=== PATIENT | female | born 1950 | race Caucasian/White ===

== ENCOUNTER 2017-12-30 06:55 | Day surgery (SDC) | payer MEDICARE ==
[2017-12-28 14:03] VITALS: BMI 38.9
[~2017-12-30 06:55] MED LIST: LACTATED RINGERS 1,000 ML IV SCH
[2017-12-30] MEDS ORDERED: LACTATED RINGERS 1,000 ML IV ONE (07:10)
[2017-12-30 07:22] VITALS: TEMP 98.3
[2017-12-30] MEDS ORDERED: PROPOFOL 10 MG/ML 20 ML VIAL IV ONE (07:43)
[2017-12-30 08:42] VITALS: BP 123/64; PULSE 72; RESP 18
--- NOTE | 2017-12-30 12:21 | P.GSHP ---
History of Present Illness H&P Date: 12/30/17 Chief Complaint: Screening colonoscopy This is a 67-year-old female who presents today for screening colonoscopy. Patient has no significant GI complaints. Past Medical History Past Medical History: COPD, GERD/Reflux, Hyperlipidemia, Hypertension, Osteoarthritis (OA), Sleep Apnea/CPAP/BIPAP Additional Past Medical History / Comment(s): obesity (morbid), degenerative arthritis and has bilateral knee replacments, , Adrenal mass -left measuring 8.4 x 6.2 cm in size. BECAME SEPTIC W/ DEHYDRATION, BODY ULCERS R/T DEPRESSION 06/2017-07/2017; NOW ON O2 @ HS & PRN. History of Any Multi-Drug Resistant Organisms: None Reported Past Surgical History: Breast Surgery, Section, Joint Replacement Additional Past Surgical History / Comment(s): LT BREAST CYST. Past Anesthesia/Blood Transfusion Reactions: No Reported Reaction Smoking Status: Former smoker - Past Family History Sister(s) Family Medical History: Liver Disease Additional Family Medical History / Comment(s): sister had genetic liver disorder from which she . pt was tested and found negative. Medications and Allergies Home Medications Medication Instructions Recorded Confirmed Type Sertraline [Zoloft] 100 mg PO DAILY 06/12/17 12/30/17 History Aspirin 81 mg PO DAILY chew 06/13/17 12/28/17 Rx Ascorbic Acid [Vitamin C] 500 mg PO DAILY 12/28/17 12/30/17 History Cholecalciferol [Vitamin D3] 5,000 unit PO DAILY 12/28/17 12/30/17 History Fish Oil (Unknown Dose) 1 tab PO DAILY 12/28/17 History Lisinopril [Zestril] 5 mg PO DAILY 12/28/17 12/30/17 History Multivitamins, Thera [Multivitamin 1 tab PO DAILY 12/28/17 12/28/17 History (formulary)] Nexium (Unknown Dose) 1 tab PO DAILY PRN 12/28/17 History Allergies Allergy/AdvReac Type Severity Reaction Status Date / Time morphine Allergy Nausea & Verified 12/30/17 07:18 Vomiting Surgical - Exam Vital Signs Temp Pulse Resp BP Pulse Ox 98.3 F 98 16 128/72 86 L 12/30/17 07:20 12/30/17 07:20 12/30/17 07:20 12/30/17 07:20 12/30/17 07:20 - General well developed, no distress - Eyes PERRL - ENT normal pinna - Neck no masses - Respiratory normal expansion - Cardiovascular Rhythm: regular - Abdomen Abdomen: soft, non tender Assessment and Plan Assessment: We'll perform screening colonoscopy.
--- NOTE | 2017-12-30 12:22 | P.OP ---
Date of Procedure: 12/30/17 Preoperative Diagnosis: Screening colonoscopy Postoperative Diagnosis: Diverticulosis Procedure(s) Performed: Colonoscopy Anesthesia: MAC Surgeon: Jesse Bro Pathology: none sent Condition: stable Disposition: PACU Description of Procedure: The patient's placed on the endoscopy table lateral position. She received IV sedation. Digital rectal exam is performed which revealed no ebonized. The flexible colonoscope was then placed patient anus passed throughout the entire colon. The ileocecal valve sutures. The cecum, ascending and transverse colon appeared normal. The same; was mild diverticular changes. Scope summer back the rectum and this appeared normal. Scope was withdrawn from patient.
== END 2017-12-30 08:55 | disposition home or self-care (01) ==
LOC: ORWHC2ENDO 06:55
PROVIDERS: ATTEND Surgery
DX: Z12.11 Encounter for screening for malignant neoplasm of colon (principal); K57.30 Diverticulosis of large intestine without perforation or abscess without bleeding; I10 Essential (primary) hypertension; E78.5 Hyperlipidemia, unspecified; J44.9 Chronic obstructive pulmonary disease, unspecified; G47.33 Obstructive sleep apnea (adult) (pediatric); F39 Unspecified mood [affective] disorder; M19.90 Unspecified osteoarthritis, unspecified site; K21.9 Gastro-esophageal reflux disease without esophagitis; E66.01 Morbid (severe) obesity due to excess calories; Z68.38 Body mass index [BMI] 38.0-38.9, adult; Z88.5 Allergy status to narcotic agent; Z79.82 Long term (current) use of aspirin; Z79.899 Other long term (current) drug therapy; Z87.891 Personal history of nicotine dependence; Z99.89 Dependence on other enabling machines and devices; Z96.653 Presence of artificial knee joint, bilateral
CPT/HCPCS: J2704; G0121

== ENCOUNTER 2021-01-08 11:14 | Emergency (ER) | payer MEDICARE ==
[2021-01-08] MEDS ORDERED: HYDROmorphone 0.5 MG/0.5 ML SYRINGE IM STA (11:39)
--- NOTE | 2021-01-08 12:43 | XR ---
EXAMINATION TYPE: XR wrist complete LT DATE OF EXAM: 01/08/2021 CLINICAL HISTORY: 70-year-old female with injury TECHNIQUE: Frontal, lateral and oblique images of the left wrist are obtained. COMPARISON: None FINDINGS: Severe bony demineralization. There is a comminuted fracture of the distal radius extending into the radiocarpal joint space. There is a fracture of the ulnar styloid process. Narrowing of the radiocarpal joint space. IMPRESSION: 1. Comminuted fracture of the distal radius extending into the radiocarpal joint. Ulnar styloid fract ure. Overlying soft tissue swelling. Severe bony demineralization.
--- NOTE | 2021-01-08 12:50 | ED ---
Upper Extremity HPI - General Chief Complaint: Extremity Injury, Upper Stated Complaint: Wrist injury Time Seen by Provider: 01/08/21 11:29 Source: patient, EMS Mode of arrival: EMS Limitations: no limitations - History of Present Illness Initial Comments: 70-year-old female presents emergency Department with a chief complaint of left wrist pain. Patient reports she was walking out of the eye doctor's office when looked upward as she was using her walker, she felt like she was going to the ground. She reports questionable syncopal episodes. However, she denies loss of consciousness. Patient states she fell on the left side of her body and, mos t of her weight with her left arm. She reports a FOOSH. States pain is worse with with movement. She was brought to the ED via EMS. She denies any paresthesias. Denies any seizure-like activity. No history of syncopal episodes. She denies any chest pain or shortness of breath, Headache, blurry vision, one sided weakness or paresthesias. - Related Data Home Medications Medication Instructions Recorded Confirmed Sertraline [Zoloft] 100 mg PO DAILY 06/12/17 12/30/17 Ascorbic Acid [Vitamin C] 500 mg PO DAILY 12/28/17 12/30/17 Cholecalciferol [Vitamin D3] 5,000 unit PO DAILY 12/28/17 12/30/17 Fish Oil (Unknown Dose) 1 tab PO DAILY 12/28/17 Multivitamins, Thera [Multivitamin 1 tab PO DAILY 12/28/17 12/28/17 (formulary)] Nexium (Unknown Dose) 1 tab PO DAILY PRN 12/28/17 lisinopriL [Zestril] 5 mg PO DAILY 12/28/17 12/30/17 Previous Rx's Medication Instructions Recorded Aspirin 81 mg PO DAILY chew 06/13/17 Allergies Allergy/AdvReac Type Severity Reaction Status Date / Time morphine Allergy Nausea & Verified 01/08/21 11:28 Vomiting Review of Systems ROS Statement: Those systems with pertinent positive or pertinent negative responses have been documented in the HPI. ROS Other: All systems not noted in ROS Statement are negative. Past Medical History Past Medical History: COPD, GERD/Reflux, Hyperlipidemia, Hypertension, Osteoarthritis (OA), Sleep Apnea/CPAP/BIPAP Additional Past Medical History / Comment(s): obesity (morbid), degenerative arthritis and has bilateral knee replacments, , Adrenal mass -left measuring 8.4 x 6.2 cm in size. BECAME SEPTIC W/ DEHYDRATION, BODY ULCERS R/T DEPRESSION 06/2017-07/2017; NOW ON O2 @ HS & PRN. History of Any Multi-Drug Resistant Organisms: None Reported Past Surgical History: Breast Surgery, Section, Joint Replacement Additional Past Surgical History / Comment(s): LT BREAST CYST. Past Anesthesia/Blood Transfusion Reactions: No Reported Reaction Past Psychological History: Depression Smoking Status: Never smoker Past Alcohol Use History: None Reported Past Drug Use History: None Reported - Past Family History Sister(s) Family Medical History: Liver Disease Additional Family Medical History / Comment(s): sister had genetic liver disorder from which she . pt was tested and found negative. General Exam Limitations: no limitations General appearance: alert, in no apparent distress, obese Head exam: Present: atraumatic, normocephalic, normal inspection Eye exam: Present: normal appearance, PERRL, EOMI Pupils: Present: normal accommodation ENT exam: Present: normal exam, normal oropharynx, mucous membranes moist Neck exam: Present: normal inspection, full ROM. Absent: tenderness, lymphadenopathy Respiratory exam: Present: normal lung sounds bilaterally. Absent: respiratory distress Cardiovascular Exam: Present: regular rate, normal rhythm, normal heart sounds. Absent: systolic murmur Extremities exam: Present: tenderness (Tenderness at the injured site), normal capillary refill, other (Palpable ulnar and radial pulses. Sensation intact in the left upper extremity). Absent: normal inspection (Obvious bony deformity on the left distal forearm), full ROM (Limited range of motion due to injury), pedal edema, joint swelling, calf tenderness Back exam: Present: normal inspection, full ROM. Absent: tenderness Neurological exam: Present: alert, oriented X3, CN II-XII intact, normal gait Psychiatric exam: Present: normal affect, normal mood Skin exam: Present: warm, dry, intact, normal color Course Vital Signs 01/08/21 11:23 Temperature 98.7 F Pulse Rate 86 Respiratory 18 Rate Blood Pressure 140/75 O2 Sat by Pulse 99 Oximetry Procedures - Orthopedic Splinting/Casting Injury #1 Side: left Upper Extremity Injury Location: wrist Upper Extremity Immobilizer: sugar tong splint, Oscar wrap, synthetic pre-padded splint Medical Decision Making - Medical Decision Making 70-year-old female presents emergency Department with a chief complaint of left wrist pain. On physical examination, clear bony deformity noted on the left wrist. She is otherwise neurovascularly intact. X-ray reveals a comminuted distal radial fracture that is extending into the radial ulnar joint. She also ulnar styloid chip fracture. I spoke to JELENA castañeda who states the patient can be splinted and they can follow-up in outpatient setting with Dr. Torres. Give the patient Dilaudid on arrival which Alleviated the symptoms. There was a concern for possible syncopal episode. Laboratory work is unremarkable. Orthostatics are within normal limits. Patient has had stable vitals throughout ED visit. Chest x-ray shows no acute findings. I offered CT of the brain and C-spine, she declined. Advised to follow with Dr. Torres. Strict return paramet ers were thoroughly discussed patient is understanding and agreeable. Case discussed with Dr. Jay. - Lab Data Result diagrams: 01/08/21 12:54 01/08/21 12:54 Lab Results 01/08/21 01/08/21 01/08/21 Range/Units 12:54 12:54 12:54 WBC 8.6 (3.8-10.6) k/uL RBC 5.01 (3.80-5.40) m/uL Hgb 14.8 (11.4-16.0) gm/dL Hct 44.4 (34.0-46.0) % MCV 88.7 (80.0-100.0) fL MCH 29.6 (25.0-35.0) pg MCHC 33.3 (31.0-37.0) g/dL RDW 13.8 (11.5-15.5) % Plt Count 174 (150-450) k/uL MPV 8.7 Neutrophils % 83 % Lymphocytes % 11 % Monocytes % 3 % Eosinophils % 2 % Basophils % 0 % Neutrophils # 7.1 (1.3-7.7) k/uL Lymphocytes # 1.0 (1.0-4.8) k/uL Monocytes # 0.3 (0-1.0) k/uL Eosinophils # 0.2 (0-0.7) k/uL Basophils # 0.0 (0-0.2) k/uL PT 10.3 (9.0-12.0) sec INR 1.0 (<1.2) APTT 21.0 L (22.0-30.0) sec Sodium 138 (137-145) mmol/L Potassium 4.7 (3.5-5.1) mmol/L Chloride 105 (98-107) mmol/L Carbon Dioxide 29 (22-30) mmol/L Anion Gap 4 mmol/L BUN 12 (7-17) mg/dL Creatinine 0.46 L (0.52-1.04) mg/dL Est GFR (CKD-EPI)AfAm >90 (>60 ml/min/1.73 sqM) Est GFR (CKD-EPI)NonAf >90 (>60 ml/min/1.73 sqM) Glucose 96 (74-99) mg/dL Calcium 9.8 (8.4-10.2) mg/dL Total Bilirubin 0.5 (0.2-1.3) mg/dL AST 28 (14-36) U/L ALT 8 (4-34) U/L Alkaline Phosphatase 104 (38-126) U/L Troponin I (0.000-0.034) ng/mL Total Protein 6.9 (6.3-8.2) g/dL Albumin 3.6 (3.5-5.0) g/dL 01/08/21 Range/Units 12:54 WBC (3.8-10.6) k/uL RBC (3.80-5.40) m/uL Hgb (11.4-16.0) gm/dL Hct (34.0-46.0) % MCV (80.0-100.0) fL MCH (25.0-35.0) pg MCHC (31.0-37.0) g/dL RDW (11.5-15.5) % Plt Count (150-450) k/uL MPV Neutrophils % % Lymphocytes % % Monocytes % % Eosinophils % % Basophils % % Neutrophils # (1.3-7.7) k/uL Lymphocytes # (1.0-4.8) k/uL Monocytes # (0-1.0) k/uL Eosinophils # (0-0.7) k/uL Basophils # (0-0.2) k/uL PT (9.0-12.0) sec INR (<1.2) APTT (22.0-30.0) sec Sodium (137-145) mmol/L Potassium (3.5-5.1) mmol/L Chloride (98-107) mmol/L Carbon Dioxide (22-30) mmol/L Anion Gap mmol/L BUN (7-17) mg/dL Creatinine (0.52-1.04) mg/dL Est GFR (CKD-EPI)AfAm (>60 ml/min/1.73 sqM) Est GFR (CKD-EPI)NonAf (>60 ml/min/1.73 sqM) Glucose (74-99) mg/dL Calcium (8.4-10.2) mg/dL Total Bilirubin (0.2-1.3) mg/dL AST (14-36) U/L ALT (4-34) U/L Alkaline Phosphatase (38-126) U/L Troponin I <0.012 (0.000-0.034) ng/mL Total Protein (6.3-8.2) g/dL Albumin (3.5-5.0) g/dL Disposition Clinical Impression: Left wrist fracture, Closed fracture of left distal radius, Fracture of ulnar styloid Disposition: HOME SELF-CARE Condition: Stable Instructions (If sedation given, give patient instructions): Wrist Fracture in Adults (ED) Additional Instructions: Follow-up with Dr. Torres. Return to emergency department if symptoms worsen. Is patient prescribed a controlled substance at d/c from ED?: No Referrals: Skye Guardado DO [Primary Care Provider] - 1-2 days Jerrell Browning MD [STAFF PHYSICIAN] - 1-2 days Time of Disposition: 14:35
[2021-01-08 13:19] LABS: Basophils % (A) 0 %; Eosinophils # (A) 0.2 k/uL (0-0.7); Eosinophils % (A) 2 %; HCT 44.4 % (34.0-46.0); HGB 14.8 gm/dL (11.4-16.0); Lymphocytes % (A) 11 %; MCH 29.6 pg (25.0-35.0); MCHC 33.3 g/dL (31.0-37.0); MCV 88.7 fL (80.0-100.0); Mean Platelet Volume 8.7; Monocytes # (A) 0.3 k/uL (0-1.0); Monocytes % (A) 3 %; Neutrophils # (A) 7.1 k/uL (1.3-7.7); Neutrophils % (A) 83 %; Platelet Count 174 k/uL (150-450); RBC 5.01 m/uL (3.80-5.40); RDW 13.8 % (11.5-15.5); WBC 8.6 k/uL (3.8-10.6)
[2021-01-08 13:37] LABS: ALT 8 U/L (4-34); AST 28 U/L (14-36); African American GFR (CKD) >90 (>60 ml/min/1.73 sqM); Albumin 3.6 g/dL (3.5-5.0); Alkaline Phosphatase 104 U/L (38-126); Anion Gap 4 mmol/L; Blood Urea Nitrogen 12 mg/dL (7-17); Calcium 9.8 mg/dL (8.4-10.2); Carbon Dioxide 29 mmol/L (22-30); Chloride 105 mmol/L (98-107); Glucose 96 mg/dL (74-99); Non-African American GFR(CKD) >90 (>60 ml/min/1.73 sqM); Potassium 4.7 mmol/L (3.5-5.1); Sodium 138 mmol/L (137-145); Total Bilirubin 0.5 mg/dL (0.2-1.3); Total Protein 6.9 g/dL (6.3-8.2)
[2021-01-08 13:40] LABS: Prothrombin Time 10.3 sec (9.0-12.0)
[2021-01-08] MEDS ORDERED: LIDOCAINE 1% INJ 10MG/ML (20 ML MDV) SQ ONE (14:04)
--- NOTE | 2021-01-08 14:21 | XR ---
EXAMINATION TYPE: XR chest 2V DATE OF EXAM: 01/08/2021 COMPARISON: 06/13/2017 HISTORY: Syncopal event, fall today TECHNIQUE: Frontal and lateral views of the chest are obtained. FINDINGS: Gross cardiomegaly. Pulmonary interstitial prominence is diffuse most suggestive of edema. Small left pleural effusion is not excluded. No right pleural effusion. No pneumothorax. Degenerativ e changes and osteopenia. IMPRESSION: 1. Gross cardiomegaly and diffuse pulmonary interstitial prominence most suggestive of edema. Probabl e small left pleural effusion. The findings are suggestive of developing congestive heart failure. Co ntinued follow-up to resolution is recommended.
[2021-01-08] MEDS ORDERED: ACET/COD 300 MG/30 MG STARTER PACK 6 TAB BTL PO STA (14:50)
[2021-01-08 15:34] VITALS: BP 99/43; PULSE 53; RESP 20; TEMP 97.5
== END 2021-01-08 15:23 | disposition home or self-care (01) ==
LOC: EC 11:14
DX: S52.612A Displaced fracture of left ulna styloid process, initial encounter for closed fracture (principal); S52.592A Other fractures of lower end of left radius, initial encounter for closed fracture; I10 Essential (primary) hypertension; J44.9 Chronic obstructive pulmonary disease, unspecified; E78.5 Hyperlipidemia, unspecified; K21.9 Gastro-esophageal reflux disease without esophagitis; M19.90 Unspecified osteoarthritis, unspecified site; G47.30 Sleep apnea, unspecified; E66.01 Morbid (severe) obesity due to excess calories; F32.9 Major depressive disorder, single episode, unspecified; Z68.41 Body mass index [BMI] 40.0-44.9, adult; W18.30XA Fall on same level, unspecified, initial encounter; Y93.01 Activity, walking, marching and hiking; Y92.531 Health care provider office as the place of occurrence of the external cause
CPT/HCPCS: 36415; 93005; 80053; 84484; 85025; 85610; 85730; 73110; 71046; 99284; 96372; 29125; J2001; J1170

== ENCOUNTER 2021-01-14 11:18 | Day surgery (SDC) | payer MEDICARE ==
[2021-01-13 12:20] VITALS: BMI 41.5
--- NOTE | 2021-01-14 08:49 | HP ---
HISTORY AND PHYSICAL CHIEF COMPLAINT: Left wrist pain. HISTORY OF PRESENT ILLNESS: Patient is a 70-year-old, right-hand dominant, retired female who presents with left wrist pain after injury on 01/08/2021. She fell on the sidewalk while getting into her car. She was seen in the emergency room and placed in a splint. She denies previous injury. PAST MEDICAL HISTORY: Significant for hypertension, COPD, depression. PAST SURGICAL HISTORY: Significant for bilateral total knee arthroplasty. CURRENT MEDICATIONS: Aspirin and antihypertensives, along with Zoloft. ALLERGIES: She denies drug allergies. FAMILY HISTORY: Negative. SOCIAL HISTORY: Negative for current tobacco or alcohol use. REVIEW OF SYSTEMS: Sixteen-point review of systems is otherwise reviewed and is noncontributory. PHYSICAL EXAMINATION: On examination, the patient is approximately 5 foot 5, 250 pounds of endomorphic habitus. HEENT exam is nonfocal. Neck is supple. She is nontender about the left shoulder and elbow. On examination of her left wrist, she has moderate dorsal swelling. Skin is intact. She is tender over the distal radius itself. She is able to flex and extend the fingers along with the thumb. Light touch is distally intact. Her distal vascular exam is intact. X-rays from 01/08/2021 were reviewed and show an intra-articular distal radius fracture with significant shortening and comminution. Less than 2 mm articular step-off is noted. IMPRESSION: 1. Left three-part intra-articular distal radius fracture. 2. Chronic obstructive pulmonary disease. RECOMMENDATIONS: I talked to the patient at length regarding her condition and treatment options. At this point she has significant initial displacement and comminution of her fracture. After thorough discussion, she opts to proceed with surgery. We will plan to proceed with open reduction and internal fixation of her distal radius. We will likely perform that as an outpatient procedure. Risks and benefits were discussed at length in layman's terms. MMODL / IJN: [id number] /
[~2021-01-14 11:18] MED LIST changes: +DEXAMETHASONE SOD PHOSPHATE 4 MG/ML 1 ML VIAL IV ONE; +HYDROmorphone 0.5 MG/0.5 ML SYRINGE IVP PRN; +LIDOCAINE 1% (10MG/ML) FOR IV START INTRADERMA PRN; +MIDAZOLAM 2 MG/2 ML VIAL IV PRN; +ONDANSETRON 4 MG/2 ML VIAL IVP ONE
[2021-01-14] MEDS ORDERED: GLYCOPYRROLATE 0.2 MG/ML 2 ML VIAL ONE (13:00)
[2021-01-14] MEDS ORDERED: PROPOFOL 10 MG/ML 20 ML VIAL IV ONE (13:00)
[2021-01-14] MEDS ORDERED: ROCURONIUM 10 MG/ML (5 ML VIAL) IV ONE (13:00)
[2021-01-14] MEDS ORDERED: ePHEDrine SULFATE/0.9% NACL/PF 50 MG/5 ML SYRINGE IV ONE (13:00)
[2021-01-14] MEDS ORDERED: ceFAZolin 1,000 MG in SODIUM CHLORIDE 0.9% 1,000 ML IRRIGATION ONE (13:00)
[2021-01-14] MEDS ORDERED: LIDOCAINE 1% INJ 10MG/ML (20 ML MDV) ONE (13:00)
[2021-01-14] MEDS ORDERED: NEOSTIGMINE 1 MG/ML 10 ML VIAL ONE (13:00)
[2021-01-14] MEDS ORDERED: ROPIVACAINE 5 MG/ML 30 ML VIAL ONE (13:00)
[2021-01-14] MEDS ORDERED: SUCCINYLCHOLINE CHLORIDE 100 MG/5 ML SYR IV ONE (13:00)
[2021-01-14] MEDS ORDERED: fentaNYL (PF) 50 MCG/ML 2 ML AMP ONE (13:00)
--- NOTE | 2021-01-14 14:45 | P.OP ---
Date of Procedure: 01/14/21 Preoperative Diagnosis: Displaced left 3 part intra-articular distal radius fracture Postoperative Diagnosis: Same Procedure(s) Performed: Open reduction and internal fixation left 3 part intra-articular distal radius fracture Implants: Arthrex volar standard with 3 hole distal radial plate Anesthesia: [facility] Surgeon: Jerrell Browning Estimated Blood Loss (ml): 10 Pathology: none sent Condition: stable Disposition: PACU Indications for Procedure: The patient's a 70-year-old female who presents after falling injuring her left wrist with a displaced three-part distal radius fracture. A discussion of the risks and benefits of operative intervention versus conservative measures was made patient. She was inserted preoperative wrist to include infection, neurovascular injury, development of blood clots, possible development of nonunion/malunion need for subsequent procedures was discussed. Informed consent was obtained. Operative Findings: as below Description of Procedure: The patient was brought to the operating room, and after induction of general anesthesia the left upper extremity was prepped and draped in normal fashion. A tourniquet was inflated to 250 mmHg. An 8 cm incision was then made along the volar radial aspect of the left wrist centered over the flexor carpi radialis. The skin was incised sharply. Subcutaneous tissues were divided bluntly. Electrocautery was used for hemostasis. The flexor carpi radialis tendon sheath was then opened and the tendon was retracted ulnarly. The radial artery was gently retracted radially. The underlying fascia was opened. The contents the carpal canal were then swept ulnarly and protected. The pronator quadratus was elevated off the distal radius and the fracture site was identified and cleaned of clot and debris. The fracture was reduced with longitudinal traction. A standard with volar plate was then provisionally attached to the volar surface with an olive wire and K wire. This done with the aid of fluoroscopy. I was able to obtain good overall alignment. The articular was also aligned well. A 3.5 mm cortical screws the appropriate length was placed proximally. The appropriate locking pegs were placed distally. This is done with the aid of fluoroscopy. Final fluoroscopic views to include AP, lateral, and PA views showed adequate reduction of the fracture, articular surface, and placement of the implant. The wound was irrigated normal saline. The pronator quadratus was repaired with interrupted 3-0 Vicryl sutures. The subcutaneous tissues reapproximated interrupted 3-0 Vicryl sutures. The skin was reapproximated with 3-0 subcuticular Prolene suture. Steri-Strips were applied. A sterile dressing was applied in addition to a volar splint. The tourniquet was deflated with less than 60 minutes total tourniquet time. Patient was then awoken from general anesthesia and transferred to recovery room in good condition. Blood loss was estimated at 10 mL. No complications were incurred. Sponge and needle counts were correct at the end of the case.
[2021-01-14 14:55] VITALS: TEMP 97.4
[2021-01-14 15:32] VITALS: RESP 20
[2021-01-14 16:13] VITALS: BP 106/70; PULSE 88
--- NOTE | 2021-01-15 04:54 | P.ANPRN ---
Procedure Note - Anesthesia - Nerve Block Performed Left Axillary Time Out Performed: Yes (12:30) Date of Procedure: 01/14/21 Procedure Start Time: :30 Procedure Stop Time: : Location of Patient: PreOp Indication: Acute Post-Operative Pain, Requested by Surgeon (Dr Browning) Sedation Type: Sedate with meaningful contact maintained Preparation: Sterile Prep Position: Supine Catheter: None Needle Types: Pajunk Needle Gauge: Other (see comment) (22g) Ultrasound used to visualize needle placement: Yes Ultrasound used to observe medication spread: Yes Injectate: 0.5% Ropivacaine (see comment for volume) (20cc) Blood Aspirated: No Pain Paresthesia on Injection Noted: No Resistance on Injection: Normal Image Stored and Saved: Yes Events: Uneventful and Well Tolerated
== END 2021-01-14 16:13 | disposition home or self-care (01) ==
LOC: OR 11:18
PROVIDERS: ATTEND Orthopaedic Surgery
DX: S52.572A Other intraarticular fracture of lower end of left radius, initial encounter for closed fracture (principal); W18.30XA Fall on same level, unspecified, initial encounter; I10 Essential (primary) hypertension; J44.9 Chronic obstructive pulmonary disease, unspecified; F32.9 Major depressive disorder, single episode, unspecified; E78.5 Hyperlipidemia, unspecified; M19.90 Unspecified osteoarthritis, unspecified site; E66.9 Obesity, unspecified; K21.9 Gastro-esophageal reflux disease without esophagitis; Z79.899 Other long term (current) drug therapy; Z88.5 Allergy status to narcotic agent
CPT/HCPCS: 64415; 76942; 25609; C1713 ×2; J2250; J1100; J2710; J0690 ×2; J2405; J2001; J3010; J2795; J0330; J2704

== ENCOUNTER 2022-03-21 15:54 | Inpatient (IN) | payer MEDICARE ==
--- NOTE | 2022-03-21 16:24 | ED ---
General Adult HPI - General Chief complaint: Shortness of Breath Stated complaint: ASHLEY Time Seen by Provider: 03/21/22 16:23 Source: patient, family, EMS Mode of arrival: EMS Limitations: no limitations - History of Present Illness Initial comments: Patient presents to the ED by ambulance for evaluation with her son and granddaughter at bedside. Patient states that she has felt dyspneic since this morning. Patient states that she has also had increasing bilateral lower extremity edema over the past week or so. Patient states that she is normally o n 6 L of home O2 due to COPD, and she states that her oxygen saturations were in the 50s earlier today. Patient states that she was also hyperventilating at home, but she states that her hyperventilation and dyspnea have currently improved significantly. Patient is noted to be in atrial fibrillation on arrival to the ED, and she states that this is a new diagnosis for her. Patient denies having any pain, fever or chills, headache, focal numbness/weakness/neuro deficit, chest pain or pressure, cough or cold symptoms, hemoptysis, palpitations, dizziness, abdominal pain, nausea/vomiting/diarrhea, dysuria or urinary symptoms, decreased urine output, leg or calf pain, or any other symptoms or complaints. Patient's son states that the patient is supposed to be taking "water pills", but she only takes them sporadically. - Related Data Home Medications Medication Instructions Recorded Confirmed Multivitamins, Thera [Multivitamin 1 tab PO DAILY 12/28/17 03/21/22 (formulary)] lisinopriL [Zestril] 5 mg PO DAILY 01/08/21 03/21/22 Furosemide [Lasix] 40 mg PO DAILY 01/13/21 03/21/22 [place]-3/Dha/Epa/Fish Oil [Fish Oil 1 cap PO DAILY 01/13/21 03/21/22 500 mg Softgel] Potassium Chloride [Potassium 10 meq PO DAILY 01/13/21 03/21/22 Chloride ER] Atorvastatin Calcium [Lipitor] 40 mg PO HS 03/21/22 03/21/22 Levothyroxine Sodium [Synthroid] 25 mcg PO DAILY 03/21/22 03/21/22 Naproxen Sodium [Aleve] 220 mg PO BID PRN 03/21/22 03/21/22 Sertraline [Zoloft] 100 mg PO DAILY 03/21/22 03/21/22 Previous Rx's Medication Instructions Recorded Aspirin 81 mg PO DAILY chew 06/13/17 Allergies Allergy/AdvReac Type Severity Reaction Status Date / Time morphine AdvReac Nausea & Verified 03/21/22 18:33 Vomiting Review of Systems ROS Statement: Those systems with pertinent positive or pertinent negative responses have been documented in the HPI. ROS Other: All systems not noted in ROS Statement are negative. Past Medical History Past Medical History: COPD, GERD/Reflux, Hyperlipidemia, Hypertension, Osteoarthritis (OA), Sleep Apnea/CPAP/BIPAP Additional Past Medical History / Comment(s): obesity (morbid), degenerative arthritis , Adrenal mass -left measuring 8.4 x 6.2 cm in size. BECAME SEPTIC W/ DEHYDRATION, BODY ULCERS R/T DEPRESSION 06/2017-07/2017; NOW ON O2 @4l & PRN.lt radial fx History of Any Multi-Drug Resistant Organisms: None Reported Past Surgical History: Breast Surgery, Section, Joint Replacement Additional Past Surgical History / Comment(s): LT BREAST CYST, edith knee replacement Past Anesthesia/Blood Transfusion Reactions: No Reported Reaction Past Psychological History: Depression Smoking Status: Former smoker - Past Family History Sister(s) Family Medical History: Liver Disease Additional Family Medical History / Comment(s): sister had genetic liver diso rder from which she . pt was tested and found negative. General Exam Limitations: no limitations General appearance: alert, in no apparent distress Head exam: Present: atraumatic, normocephalic Eye exam: Present: normal appearance, EOMI ENT exam: Present: mucous membranes moist Neck exam: Present: other (trachea is in midline) Respiratory exam: Present: normal lung sounds bilaterally, other (Bibasilar rales). Absent: respiratory distress, wheezes, rhonchi, stridor Cardiovascular Exam: Present: tachycardia, irregular rhythm, normal heart sounds, other (Normal radial pulses bilaterally) GI/Abdominal exam: Present: soft. Absent: distended, tenderness, guarding Extremities exam: Present: other (2+ bilateral lower cavity pedal edema; negative Homans sign bilaterally). Absent: tenderness, calf tenderness Neurological exam: Present: alert, oriented X3. Absent: motor sensory deficit Psychiatric exam: Present: normal affect, normal mood Skin exam: Present: warm, dry, intact, normal color Course Vital Signs 03/21/22 03/21/22 03/21/22 16:09 17:34 18:08 Temperature 97.9 F Pulse Rate 168 H 112 H 110 H Respiratory 22 22 17 Rate Blood Pressure 96/62 96/61 105/82 O2 Sat by Pulse 99 100 100 Oximetry 03/21/22 18:41 Temperature Pulse Rate Respiratory Rate Blood Pressure 118/64 O2 Sat by Pulse Oximetry - Reevaluation(s) Reevaluation #1: 03/21/22 19:46 Case, H&P, test results and ED management were discussed with Dr. Ng. She accepts hospital admission. She agrees with cardiology consultation. She has n o further recommendation at this time. 03/21/22 19:51 Patient states that she is now feeling better. Patient's heart rate has improved to the low 100s with IV diltiazem administration in the ED. Patient's blood pressure has also improved. Patient remains alert and breathing comfortably. Patient and granddaughter are aware the patient's test results, and patient agrees with hospital admission at this time. EKG Findings - EKG Comments: EKG Findings:: EKG is limited secondary to motion; atrial fibrillation with rapid ventricular response, ventricular rate of 170 bpm, normal QRS duration, normal QT interval, rightward axis, nonspecific T-wave abnormality Medical Decision Making - Medical Decision Making I suspect that the patient's dyspnea and lower extremity edema are likely secondary to CHF due to new onset atrial fibrillation. Patient's heart rate has improved with IV diltiazem and administration in the ED. Patient's blood pressure walsh improved as well. Patient states that her symptoms have improved. Patient remains alert and breathing comfortably. Patient's troponin is negative. Patient's CT is negative for pulmonary embolism, but does demonstrate findings of CHF. It also demonstrates a left adrenal mass, which will require further evaluation. Will admit the patient to the hospital for further evaluation/treatment, cardiology consultation and cardiac monitoring. Dr. Ng has accepted hospital admission. - Lab Data Result diagrams: 03/21/22 16:24 03/21/22 16:24 Lab Results 03/21/22 03/21/22 03/21/22 Range/Units 16:24 16:24 16:24 WBC 8.0 (3.8-10.6) k/uL RBC 3.96 (3.80-5.40) m/uL Hgb 10.3 L (11.4-16.0) gm/dL Hct 34.4 (34.0-46.0) % MCV 86.9 (80.0-100.0) fL MCH 26.0 (25.0-35.0) pg MCHC 29.9 L (31.0-37.0) g/dL RDW 17.6 H (11.5-15.5) % Plt Count 186 (150-450) k/uL MPV 10.4 Neutrophils % 86 % Lymphocytes % 7 % Monocytes % 4 % Eosinophils % 1 % Basophils % 0 % Neutrophils # 6.9 (1.3-7.7) k/uL Lymphocytes # 0.6 L (1.0-4.8) k/uL Monocytes # 0.3 (0-1.0) k/uL Eosinophils # 0.1 (0-0.7) k/uL Basophils # 0.0 (0-0.2) k/uL Hypochromasia Marked Anisocytosis Slight PT 11.6 (9.0-12.0) sec INR 1.1 (<1.2) APTT 22.1 (22.0-30.0) sec D-Dimer 3.30 H (<0.60) mg/L FEU Sodium 138 (137-145) mmol/L Potassium 4.2 (3.5-5.1) mmol/L Chloride 99 (98-107) mmol/L Carbon Dioxide 32 H (22-30) mmol/L Anion Gap 7 mmol/L BUN 19 H (7-17) mg/dL Creatinine 0.70 (0.52-1.04) mg/dL Est GFR (CKD-EPI)AfAm >90 (>60 ml/min/1.73 sqM) Est GFR (CKD-EPI)NonAf 86 (>60 ml/min/1.73 sqM) Glucose 116 H (74-99) mg/dL Plasma Lactic Acid Syed (0.7-2.0) mmol/L Calcium 9.3 (8.4-10.2) mg/dL Magnesium 1.7 (1.6-2.3) mg/dL Total Bilirubin 0.6 (0.2-1.3) mg/dL AST 34 (14-36) U/L ALT 15 (4-34) U/L Alkaline Phosphatase 122 (38-126) U/L Troponin I (0.000-0.034) ng/mL NT-Pro-B Natriuret Pep pg/mL Total Protein 6.4 (6.3-8.2) g/dL Albumin 2.7 L (3.5-5.0) g/dL TSH (0.465-4.680) mIU/L Free T4 (0.78-2.19) ng/dL Influenza Type A (PCR) (Not Detectd) Influenza Type B (PCR) (Not Detectd) RSV (PCR) (Not Detectd) SARS-CoV-2 (PCR) (Not Detectd) 03/21/22 03/21/22 03/21/22 Range/Units 16:24 16:24 16:24 WBC (3.8-10.6) k/uL RBC (3.80-5.40) m/uL Hgb (11.4-16.0) gm/dL Hct (34.0-46.0) % MCV (80.0-100.0) fL MCH (25.0-35.0) pg MCHC (31.0-37.0) g/dL RDW (11.5-15.5) % Plt Count (150-450) k/uL MPV Neutrophils % % Lymphocytes % % Monocytes % % Eosinophils % % Basophils % % Neutrophils # (1.3-7.7) k/uL Lymphocytes # (1.0-4.8) k/uL Monocytes # (0-1.0) k/uL Eosinophils # (0-0.7) k/uL Basophils # (0-0.2) k/uL Hypochromasia Anisocytosis PT (9.0-12.0) sec INR (<1.2) APTT (22.0-30.0) sec D-Dimer (<0.60) mg/L FEU Sodium (137-145) mmol/L Potassium (3.5-5.1) mmol/L Chloride (98-107) mmol/L Carbon Dioxide (22-30) mmol/L Anion Gap mmol/L BUN (7-17) mg/dL Creatinine (0.52-1.04) mg/dL Est GFR (CKD-EPI)AfAm (>60 ml/min/1.73 sqM) Est GFR (CKD-EPI)NonAf (>60 ml/min/1.73 sqM) Glucose (74-99) mg/dL Plasma Lactic Acid Syed 1.4 (0.7-2.0) mmol/L Calcium (8.4-10.2) mg/dL Magnesium (1.6-2.3) mg/dL Total Bilirubin (0.2-1.3) mg/dL AST (14-36) U/L ALT (4-34) U/L Alkaline Phosphatase (38-126) U/L Troponin I 0.024 (0.000-0.034) ng/mL NT-Pro-B Natriuret Pep 9310 pg/mL Total Protein (6.3-8.2) g/dL Albumin (3.5-5.0) g/dL TSH (0.465-4.680) mIU/L Free T4 (0.78-2.19) ng/dL Influenza Type A (PCR) (Not Detectd) Influenza Type B (PCR) (Not Detectd) RSV (PCR) (Not Detectd) SARS-CoV-2 (PCR) (Not Detectd) 03/21/22 03/21/22 Range/Units 17:24 18:27 WBC (3.8-10.6) k/uL RBC (3.80-5.40) m/uL Hgb (11.4-16.0) gm/dL Hct (34.0-46.0) % MCV (80.0-100.0) fL MCH (25.0-35.0) pg MCHC (31.0-37.0) g/dL RDW (11.5-15.5) % Plt Count (150-450) k/uL MPV Neutrophils % % Lymphocytes % % Monocytes % % Eosinophils % % Basophils % % Neutrophils # (1.3-7.7) k/uL Lymphocytes # (1.0-4.8) k/uL Monocytes # (0-1.0) k/uL Eosinophils # (0-0.7) k/uL Basophils # (0-0.2) k/uL Hypochromasia Anisocytosis PT (9.0-12.0) sec INR (<1.2) APTT (22.0-30.0) sec D-Dimer (<0.60) mg/L FEU Sodium (137-145) mmol/L Potassium (3.5-5.1) mmol/L Chloride (98-107) mmol/L Carbon Dioxide (22-30) mmol/L Anion Gap mmol/L BUN (7-17) mg/dL Creatinine (0.52-1.04) mg/dL Est GFR (CKD-EPI)AfAm (>60 ml/min/1.73 sqM) Est GFR (CKD-EPI)NonAf (>60 ml/min/1.73 sqM) Glucose (74-99) mg/dL Plasma Lactic Acid Syed (0.7-2.0) mmol/L Calcium (8.4-10.2) mg/dL Magnesium (1.6-2.3) mg/dL Total Bilirubin (0.2-1.3) mg/dL AST (14-36) U/L ALT (4-34) U/L Alkaline Phosphatase (38-126) U/L Troponin I (0.000-0.034) ng/mL NT-Pro-B Natriuret Pep pg/mL Total Protein (6.3-8.2) g/dL Albumin (3.5-5.0) g/dL TSH 3.140 (0.465-4.680) mIU/L Free T4 1.79 (0.78-2.19) ng/dL Influenza Type A (PCR) Not Detected (Not Detectd) Influenza Type B (PCR) Not Detected (Not Detectd) RSV (PCR) Not Detected (Not Detectd) SARS-CoV-2 (PCR) Not Detected (Not Detectd) - Radiology Data Chest x-ray: There is evidence for some congestive heart failure with increased pleural fluid compared to old exam. Pulmonary congestion increased. CT angiography chest with IV contrast: No evidence of pulmonary embolism. Bilateral pleural effusions and some basilar pulmonary infiltrates and atelectasis which are increased compared to old exam. Cardiomegaly. This could be chronic congestive heart failure. Small pericardial effusion. Large left atrial mass increased from exam 5 years ago. Disposition Clinical Impression: Atrial fibrillation with rapid ventricular response, Dyspnea, CHF (congestive heart failure), Left adrenal mass Disposition: ADMITTED IP TO THIS HOSP Condition: Stable Is patient prescribed a controlled substance at d/c from ED?: No Referrals: Skye Guardado DO [Primary Care Provider] - 1-2 days Time of Disposition: 19:46
--- NOTE | 2022-03-21 17:08 | XR ---
EXAMINATION TYPE: XR chest 1V portable DATE OF EXAM: 03/21/2022 COMPARISON: 01/08/2021 HISTORY: Short of breath TECHNIQUE: Single view FINDINGS: Heart is enlarged. There is pulmonary interstitial and airspace edema. There is mild blunti ng of the costophrenic angles. There are chest leads. IMPRESSION: There is evidence for some congestive heart failure with increased pleural fluid compared to old exam. Pulmonary congestion increased
[2022-03-21] MEDS ORDERED: DILTIAZEM 5 MG/ML 5 ML VIAL IVP STA (17:09)
[2022-03-21 17:38] LABS: Anisocytosis Slight; Basophils % (A) 0 %; Eosinophils # (A) 0.1 k/uL (0-0.7); Eosinophils % (A) 1 %; HCT 34.4 % (34.0-46.0); HGB 10.3 gm/dL (11.4-16.0); Hypochromasia Marked; Lymphocytes # (A) 0.6 k/uL (1.0-4.8); Lymphocytes % (A) 7 %; MCHC 29.9 g/dL (31.0-37.0); MCV 86.9 fL (80.0-100.0); Mean Platelet Volume 10.4; Monocytes # (A) 0.3 k/uL (0-1.0); Monocytes % (A) 4 %; Neutrophils # (A) 6.9 k/uL (1.3-7.7); Neutrophils % (A) 86 %; Platelet Count 186 k/uL (150-450); RBC 3.96 m/uL (3.80-5.40); RDW 17.6 % (11.5-15.5)
[2022-03-21 17:51] LABS: ALT 15 U/L (4-34); AST 34 U/L (14-36); African American GFR (CKD) >90 (>60 ml/min/1.73 sqM); Albumin 2.7 g/dL (3.5-5.0); Alkaline Phosphatase 122 U/L (38-126); Anion Gap 7 mmol/L; Blood Urea Nitrogen 19 mg/dL (7-17); Calcium 9.3 mg/dL (8.4-10.2); Carbon Dioxide 32 mmol/L (22-30); Chloride 99 mmol/L (98-107); Glucose 116 mg/dL (74-99); Magnesium 1.7 mg/dL (1.6-2.3); Non-African American GFR(CKD) 86 (>60 ml/min/1.73 sqM); Potassium 4.2 mmol/L (3.5-5.1); Sodium 138 mmol/L (137-145); Total Bilirubin 0.6 mg/dL (0.2-1.3); Total Protein 6.4 g/dL (6.3-8.2)
[2022-03-21] MEDS ORDERED: FUROSEMIDE 10 MG/ML 4 ML VIAL IV STA (17:51)
[2022-03-21 17:54] LABS: INR 1.1 (<1.2); Partial Thromboplastin Time 22.1 sec (22.0-30.0); Prothrombin Time 11.6 sec (9.0-12.0)
[2022-03-21 18:07] LABS: T4, Free (Free Thyroxine) 1.79 ng/dL (0.78-2.19)
--- NOTE | 2022-03-21 19:17 | CT ---
EXAMINATION TYPE: CT chest angio for PE DATE OF EXAM: 03/21/2022 COMPARISON: 06/12/2017 HISTORY: dyspnea, hypoxia, elevated d-dimer CT DLP: 592.1 mGycm Automated exposure control for dose reduction was used. CONTRAST: Performed with IV Contrast, patient injected with 100 mL of Isovue 370. There are 3-D post processed images. There are mild bilateral pleural effusions. Heart is moderately enlarged. There is mild pericardial e ffusion. There is no mediastinal adenopathy. There are no hilar masses. There is normal contrast opac ification of the pulmonary arteries. No filling defect. Thoracic aorta is intact. No aneurysm. The thoracic spine is intact. No compression fracture. Sternum is intact the ribs appear intact. The thoracic vertebra show degenerative spur formation. There is a large mass in the left upper quadrant at the upper pole left kidney that measures 11 cm and is increased compared to old CT scan. This is c onsistent with adrenal tumor that has increased. IMPRESSION: No evidence of pulmonary embolism. Bilateral pleural effusions and some basilar pulmonary infiltrates and atelectasis which are increased compared to old exam. Cardiomegaly. This could be chronic conges tive heart failure. Small pericardial effusion. Large left adrenal mass increased from exam 5 years ago.
[2022-03-21] MEDS ORDERED: DEXTROSE 5% IN WATER 100 ML with AMIODARONE 150 MG IV ONE (22:31)
[2022-03-21] MEDS ORDERED: HEPARIN SODIUM 1,000 UN/ML (10ML VL) IV PRN (22:32)
[2022-03-21] MEDS ORDERED: HEPARIN SOD,PORK IN 0.45% NACL 25,000 UNIT in 0.45% NACL 1 250ML.BAG IV SCH (22:45)
[2022-03-21] MEDS ORDERED: AMIODARONE 360 MG in DEXTROSE 5% IN WATER 200 ML IV ONE ×2 (22:45)
[2022-03-22] MEDS: AMIODARONE 450 MG in DEXTROSE 5% IN WATER 250 ML IV SCH ×4 (04:27→20:38)
[2022-03-22 05:33] LABS: Anisocytosis Slight; Basophils % (A) 0 %; Eosinophils # (A) 0.1 k/uL (0-0.7); Eosinophils % (A) 1 %; HCT 32.1 % (34.0-46.0); HGB 9.5 gm/dL (11.4-16.0); Hypochromasia Marked; Lymphocytes # (A) 1.3 k/uL (1.0-4.8); Lymphocytes % (A) 21 %; MCH 26.1 pg (25.0-35.0); MCHC 29.5 g/dL (31.0-37.0); MCV 88.6 fL (80.0-100.0); Mean Platelet Volume 10.5; Monocytes # (A) 0.4 k/uL (0-1.0); Monocytes % (A) 7 %; Neutrophils # (A) 4.3 k/uL (1.3-7.7); Neutrophils % (A) 69 %; Platelet Count 170 k/uL (150-450); RBC 3.62 m/uL (3.80-5.40); RDW 17.8 % (11.5-15.5); WBC 6.3 k/uL (3.8-10.6)
[2022-03-22 05:40] LABS: INR 1.1 (<1.2); Prothrombin Time 11.9 sec (9.0-12.0)
[2022-03-22 05:46] LABS: ALT 13 U/L (4-34); AST 25 U/L (14-36); African American GFR (CKD) >90 (>60 ml/min/1.73 sqM); Albumin 2.6 g/dL (3.5-5.0); Alkaline Phosphatase 119 U/L (38-126); Anion Gap 7 mmol/L; Blood Urea Nitrogen 15 mg/dL (7-17); Carbon Dioxide 32 mmol/L (22-30); Chloride 98 mmol/L (98-107); Glucose 85 mg/dL (74-99); Non-African American GFR(CKD) 84 (>60 ml/min/1.73 sqM); Potassium 3.5 mmol/L (3.5-5.1); Sodium 137 mmol/L (137-145); Total Bilirubin 0.4 mg/dL (0.2-1.3)
[2022-03-22] MEDS: METOPROLOL TARTRATE 25 MG TAB PO SCH ×2 (09:24→21:31)
[2022-03-22] MEDS: FUROSEMIDE 10 MG/ML 4 ML VIAL IV SCH ×2 (09:24→21:31)
[2022-03-22 11:41] LABS: Glucose,Whole Blood 91 mg/dL (70-110)
--- NOTE | 2022-03-22 11:41 | P.CRDCN ---
History of Present Illness History of present illness: HISTORY OF PRESENT ILLNESS: This is a 71-year-old female with a past medical history significant for hypertension, hyperlipidemia, hypothyroidism, COPD with home oxygen, and congestive heart failure. Patient does not follow with a director technical. We have been asked to see the patient in consultation for congestive heart failure and atrial fibrillation. Patient examined at the bedside. Patient presented to the hospital with a chief complaint of shortness of breath and increased lower extremity edema for the last week. She reports that her pulse ox at home was in the 50s. The patient is prescribed Lasix on an outpatient basis. However she states she does not take this daily. Patient also reports she did not begin taking it daily when she noticed her increased lower extremity edema and her shortness of breath. She also reports she is not compliant with a low-sodium diet. She denies chest pain or pressure. The patient is currently on IV amiodarone and IV heparin. Patient's blood pressure stable with a recent reading of 115/69. She is on 6 L nasal cannula. * EKG reveals A. fib with RVR * Chest xray there is evidence for some congestive heart failure with increased pleural fluid compared to old exam. Pulmonary congestion increased. * Laboratory data: WBC 6.3. Hemoglobin 9.5. Platelet count 170. Sodium 137. Potassium 3.5. BUN 6:15. Creatinine 0.72. Troponin 0.024. 0.053. 0.047. * Current home cardiac medications include aspirin 81 mg daily, Lipitor 40 mg at night, Lasix 40 mg daily, lisinopril 5 mg daily REVIEW OF SYSTEMS: At the time of my exam: CONSTITUTIONAL: Denies fever or chills. HEENT: Denies blurred vision, vision changes, or eye pain. Denies hemoptysis CARDIOVASCULAR: Denies chest pain. Denies orthopnea. Denies PND. Denies palpitations RESPIRATORY: Denies shortness of breath. GASTROINTESTINAL: Denies abdominal pain. Denies nausea or vomiting. HEMATOLOGIC: Denies bleeding disorders. GENITOURINARY: Denies any blood in urine. SKIN: Denies pruitis. Denies rash. PHYSICAL EXAM: VITAL SIGNS: Reviewed. GENERAL: Well-developed in no acute distress. HEENT: Head is normocephalic. Pupils are equal, round. Sclerae anicteric. Mucous membranes of the mouth are moist. Neck supple. No JVD or thyromegaly LUNGS: Respirations even and unlabored. Lungs essentially clear to auscultation bilaterally. HEART: Tachycardic. Irregular rate and rhythm. S1 and S2 heard. ABDOMEN: Soft. Nondistended. Nontender. EXTREMITIES: Normal range of motion. No clubbing or cyanosis. Peripheral pulses intact. Trace lower extremity edema NEUROLOGIC: Awake and alert. Oriented x 3. ASSESSMENT: Shortness of breath Acute on chronic heart failure, type unknown, echo pending New-onset atrial fibrillation with RVR Hypertension Hyperlipidemia COPD with home oxygen use Hypothyroidism PLAN: Obtain 2-D echo to assess cardiac structure and function Continue IV amiodarone Begin metoprolol tartrate 25 mg twice a day Discontinue IV heparin. Begin Eliquis 5mg BID TSH checked and within normal limits Continue telemetry monitoring Further recommendations pending patient's course Nurse practitioner note has been reviewed by physician. Signing provider agrees with the documented findings, assessment, and plan of care. Past Medical History Past Medical History: COPD, GERD/Reflux, Hyperlipidemia, Hypertension, Osteoarthritis (OA), Sleep Apnea/CPAP/BIPAP Additional Past Medical History / Comment(s): obesity (morbid), degenerative arthritis , Adrenal mass -left measuring 8.4 x 6.2 cm in size. BECAME SEPTIC W/ DEHYDRATION, BODY ULCERS R/T DEPRESSION 06/2017-07/2017; NOW ON O2 @4l & PRN.lt radial fx History of Any Multi-Drug Resistant Organisms: None Reported Past Surgical History: Breast Surgery, Section, Joint Replacement Additional Past Surgical History / Comment(s): LT BREAST CYST, edith knee replacement Past Anesthesia/Blood Transfusion Reactions: No Reported Reaction Past Psychological History: Depression Smoking Status: Former smoker Past Alcohol Use History: None Reported Additional Past Alcohol Use History / Comment(s): SMOKED 46 YEARS, 2 - 1/2 PPD, QUIT 06/2017 Past Drug Use History: None Reported - Past Family History Sister(s) Family Medical History: Liver Disease Additional Family Medical History / Comment(s): sister had genetic liver disorder from which she . pt was tested and found negative. Medications and Allergies Home Medications Medication Instructions Recorded Confirmed Type Aspirin 81 mg PO DAILY chew 06/13/17 03/21/22 Rx Multivitamins, Thera [Multivitamin 1 tab PO DAILY 12/28/17 03/21/22 History (formulary)] lisinopriL [Zestril] 5 mg PO DAILY 01/08/21 03/21/22 History Furosemide [Lasix] 40 mg PO DAILY 01/13/21 03/21/22 History [place]-3/Dha/Epa/Fish Oil [Fish Oil 1 cap PO DAILY 01/13/21 03/21/22 History 500 mg Softgel] Potassium Chloride [Potassium 10 meq PO DAILY 01/13/21 03/21/22 History Chloride ER] Atorvastatin Calcium [Lipitor] 40 mg PO HS 03/21/22 03/21/22 History Levothyroxine Sodium [Synthroid] 25 mcg PO DAILY 03/21/22 03/21/22 History Naproxen Sodium [Aleve] 220 mg PO BID PRN 03/21/22 03/21/22 History Sertraline [Zoloft] 100 mg PO DAILY 03/21/22 03/21/22 History Apixaban [Eliquis] 5 mg PO BID #60 tab 03/22/22 Rx Allergies Allergy/AdvReac Type Severity Reaction Status Date / Time morphine AdvReac Nausea & Verified 03/21/22 18:33 Vomiting Physical Exam Vitals: Vital Signs Temp Pulse Pulse Resp BP BP Pulse Ox 03/22/22 03:55 97.7 F 109 H 16 115/69 98 03/22/22 01:03 103 H 18 94/50 93 L 03/21/22 23:45 111 H 18 99/55 100 03/21/22 22:35 137 H 22 105/63 99 03/21/22 21:17 120 H 20 94/64 98 03/21/22 19:52 112 H 20 90/75 96 03/21/22 18:41 118/64 03/21/22 18:08 110 H 17 105/82 100 03/21/22 17:34 112 H 22 96/61 100 03/21/22 16:09 97.9 F 168 H 22 96/62 99 Intake and Output 03/21/22 03/22/22 03/22/22 22:59 06:59 14:59 Intake Total 66.859 Balance 66.859 Intake: Intake, IV Titration 66.859 Amount Heparin Sod,Pork in 0.45% 66.859 NaCl 25,000 unit In 0.45 % NaCl 1 250ml.bag @ 11 UNITS/KG/HR 9.979 mls/hr IV .Q24H [facility] Rx#: [id number] Other: Voiding Method External Catheter # Voids 1 Weight 90.718 kg Results 03/22/22 05:11 03/22/22 05:11 Cardiac Enzymes 03/21/22 03/21/22 03/21/22 Range/Units 16:24 16:24 21:00 AST 34 (14-36) U/L Troponin I 0.024 0.053 H* (0.000-0.034) ng/mL 03/22/22 03/22/22 Range/Units 00:21 05:11 AST 25 (14-36) U/L Troponin I 0.047 H* (0.000-0.034) ng/mL Coagulation 03/21/22 03/22/22 Range/Units 16:24 05:11 PT 11.6 11.9 (9.0-12.0) sec APTT 22.1 31.0 H (22.0-30.0) sec CBC 03/21/22 03/22/22 Range/Units 16:24 05:11 WBC 8.0 6.3 (3.8-10.6) k/uL RBC 3.96 3.62 L (3.80-5.40) m/uL Hgb 10.3 L 9.5 L (11.4-16.0) gm/dL Hct 34.4 32.1 L (34.0-46.0) % Plt Count 186 170 (150-450) k/uL Comprehensive Metabolic Panel 03/21/22 03/22/22 Range/Units 16:24 05:11 Sodium 138 137 (137-145) mmol/L Potassium 4.2 3.5 (3.5-5.1) mmol/L Chloride 99 98 (98-107) mmol/L Carbon Dioxide 32 H 32 H (22-30) mmol/L BUN 19 H 15 (7-17) mg/dL Creatinine 0.70 0.72 (0.52-1.04) mg/dL Glucose 116 H 85 (74-99) mg/dL Calcium 9.3 9.0 (8.4-10.2) mg/dL AST 34 25 (14-36) U/L ALT 15 13 (4-34) U/L Alkaline Phosphatase 122 119 (38-126) U/L Total Protein 6.4 6.0 L (6.3-8.2) g/dL Albumin 2.7 L 2.6 L (3.5-5.0) g/dL Current Medications Generic Name Dose Route Start Last Admin Trade Name Freq PRN Reason Stop Dose Admin Heparin Sodium (Porcine) 0 unit 03/21/22 22:32 03/22/22 06:15 Heparin Sodium 1,000 Un/Ml (10ml Vl) IV 4,000 unit PER PROTOCOL PRN Administration Low PTT Protocol Amiodarone HCl 450 mg/ 250 mls @ 16.667 mls/hr 03/22/22 05:00 03/22/22 04:27 Dextrose/Water IV 03/22/22 22:59 0.5 mg/min .Q15H [facility] 16.667 mls/hr Administration Protocol 0.5 MG/MIN Heparin Sodium/Sodium Chloride 250 mls @ 9.979 mls/hr 03/21/22 22:45 03/22/22 06:07 25,000 unit/ Sodium Chloride IV 14 units/kg/hr .Q24H [facility] 12.701 mls/hr Titration Protocol 11 UNITS/KG/HR Intake and Output 03/21/22 03/22/22 03/22/22 22:59 06:59 14:59 Intake Total 66.859 Balance 66.859 Intake: Intake, IV Titration 66.859 Amount Heparin Sod,Pork in 0.45% 66.859 NaCl 25,000 unit In 0.45 % NaCl 1 250ml.bag @ 11 UNITS/KG/HR 9.979 mls/hr IV .Q24H [facility] Rx#: [id number] Other: Voiding Method External Catheter # Voids 1 Weight 90.718 kg 03/22/22 05:11 03/22/22 05:11
[2022-03-22] MEDS: APIXABAN 5 MG TAB PO SCH ×2 (11:51→21:31)
--- NOTE | 2022-03-22 14:45 | P.HPIM ---
History of Present Illness H&P Date: 03/22/22 Chief Complaint: Shortness of breath,"panicky sensation" This pleasant 71-year-old morbidly obese female presented to the ER with complaints of feeling panicky, shortness of breath without chest pain, diaphoresis or syncope. Reports bilateral lower extremity edema times nearly 1 week. Denies nausea vomiting or diarrhea. Denies abdominal pain. Denies lightheadedness dizziness or focal deficits. Normally wears 6 L of nasal cannula O2 at home, O2 sat rate 54% and daughter increased to 8 L prior to EMS arrival.EKG reporting atrial fibrillation with RVR Chest CT reported no evidence of PE, bilateral pleural effusions, some basilar pulmonary infiltrates and atelectasis increased, large left adrenal mass increased from exam 5 years ago. Chest x-ray reporting some CHF with increased pleural fluid. Afebrile, normal WBC, hemoglobin 9.5, platelets 170, INR 1.1, sodium 137, potassium 3.5, bicarb 32, BUN 15, creatinine 0.72. Troponin 0.024, 0.053, 0.047. Currently m aintained on heparin and amiodarone drips. Telemetry sinus rhythm. Review of Systems ROS Statement: Those systems with pertinent positive or pertinent negative responses have been documented in the HPI. ROS Other: All systems not noted in ROS Statement are negative. Past Medical History Past Medical History: COPD, GERD/Reflux, Hyperlipidemia, Hypertension, Osteoarthritis (OA), Sleep Apnea/CPAP/BIPAP Additional Past Medical History / Comment(s): obesity (morbid), degenerative arthritis , Adrenal mass -left measuring 8.4 x 6.2 cm in size. BECAME SEPTIC W/ DEHYDRATION, BODY ULCERS R/T DEPRESSION 06/2017-07/2017; NOW ON O2 @4l & PRN.lt radial fx History of Any Multi-Drug Resistant Organisms: None Reported Past Surgical History: Breast Surgery, Section, Joint Replacement Additional Past Surgical History / Comment(s): LT BREAST CYST, edith knee replacement Past Anesthesia/Blood Transfusion Reactions: No Reported Reaction Past Psychological History: Depression Smoking Status: Former smoker Past Alcohol Use History: None Reported Additional Past Alcohol Use History / Comment(s): SMOKED 48 YEARS, 2 - 1/2 PPD, QUIT 06/2017 Past Drug Use History: None Reported - Past Family History Sister(s) Family Medical History: Liver Disease Additional Family Medical History / Comment(s): sister had genetic liver disorder from which she . pt was tested and found negative. Medications and Allergies Home Medications Medication Instructions Recorded Confirmed Type Aspirin 81 mg PO DAILY chew 06/13/17 03/21/22 Rx Multivitamins, Thera [Multivitamin 1 tab PO DAILY 12/28/17 03/21/22 History (formulary)] lisinopriL [Zestril] 5 mg PO DAILY 01/08/21 03/21/22 History Furosemide [Lasix] 40 mg PO DAILY 01/13/21 03/21/22 History [place]-3/Dha/Epa/Fish Oil [Fish Oil 1 cap PO DAILY 01/13/21 03/21/22 History 500 mg Softgel] Potassium Chloride [Potassium 10 meq PO DAILY 01/13/21 03/21/22 History Chloride ER] Atorvastatin Calcium [Lipitor] 40 mg PO HS 03/21/22 03/21/22 History Levothyroxine Sodium [Synthroid] 25 mcg PO DAILY 03/21/22 03/21/22 History Naproxen Sodium [Aleve] 220 mg PO BID PRN 03/21/22 03/21/22 History Sertraline [Zoloft] 100 mg PO DAILY 03/21/22 03/21/22 History Apixaban [Eliquis] 5 mg PO BID #60 tab 03/22/22 Rx Allergies Allergy/AdvReac Type Severity Reaction Status Date / Time morphine AdvReac Nausea & Verified 03/21/22 18:33 Vomiting Physical Exam Vitals: Vital Signs Temp Pulse Pulse Resp BP BP Pulse Ox 03/22/22 11:51 123 H 16 105/73 03/22/22 08:00 114 H 16 130/86 92 L 03/22/22 03:55 97.7 F 109 H 16 115/69 98 03/22/22 01:03 103 H 18 94/50 93 L 03/21/22 23:45 111 H 18 99/55 100 03/21/22 22:35 137 H 22 105/63 99 03/21/22 21:17 120 H 20 94/64 98 03/21/22 19:52 112 H 20 90/75 96 03/21/22 18:41 118/64 03/21/22 18:08 110 H 17 105/82 100 03/21/22 17:34 112 H 22 96/61 100 03/21/22 16:09 97.9 F 168 H 22 96/62 99 Intake and Output 03/21/22 03/22/22 03/22/22 22:59 06:59 14:59 Intake Total 66.859 Balance 66.859 Intake: Intake, IV Titration 66.859 Amount Heparin Sod,Pork in 0.45% 66.859 NaCl 25,000 unit In 0.45 % NaCl 1 250ml.bag @ 11 UNITS/KG/HR 9.979 mls/hr IV .Q24H [facility] Rx#: [id number] Other: Voiding Method External Catheter External Catheter # Voids 1 Weight 90.718 kg PHYSICAL EXAM: VITAL SIGNS: As above GENERAL: Morbidly obese, sitting up in bed, no acute distress HEENT: Conjunctivae normal. eyes normal. NECK: Supple, No JVD. No thyroid enlargement. No LNs CARDIOVASCULAR: S1, S2 regular.No murmur RESPIRATION: Breath sounds diminished with fine crackles in bilateral bases. No rhonchi.No bronchial breathing. ABDOMEN: Soft, nontender . No guarding. no masses palpable. No ascites, No hepatosplenomegaly.Bowel sounds heard. LEGS: Positive bilateral lower extremity edema, no cyanosis, no clubbing. PSYCHIATRY: Alert and oriented X3, mood and affect normal. NERVOUS SYSTEM: Cranial N 2-12 grossly normal. No focal deficits. Strength and sensation grossly intact. Skin: Warm and dry, no rash. Results CBC & Chem 7: 03/22/22 05:11 03/22/22 05:11 Labs: Abnormal Lab Results - Last 24 Hours (Table) 03/21/22 03/21/22 03/21/22 Range/Units 16:24 16:24 16:24 RBC (3.80-5.40) m/uL Hgb 10.3 L (11.4-16.0) gm/dL Hct (34.0-46.0) % MCHC 29.9 L (31.0-37.0) g/dL RDW 17.6 H (11.5-15.5) % Lymphocytes # 0.6 L (1.0-4.8) k/uL APTT (22.0-30.0) sec D-Dimer 3.30 H (<0.60) mg/L FEU Carbon Dioxide 32 H (22-30) mmol/L BUN 19 H (7-17) mg/dL Glucose 116 H (74-99) mg/dL Troponin I (0.000-0.034) ng/mL Total Protein (6.3-8.2) g/dL Albumin 2.7 L (3.5-5.0) g/dL 03/21/22 03/22/22 03/22/22 Range/Units 21:00 00:21 05:11 RBC 3.62 L (3.80-5.40) m/uL Hgb 9.5 L (11.4-16.0) gm/dL Hct 32.1 L (34.0-46.0) % MCHC 29.5 L (31.0-37.0) g/dL RDW 17.8 H (11.5-15.5) % Lymphocytes # (1.0-4.8) k/uL APTT (22.0-30.0) sec D-Dimer (<0.60) mg/L FEU Carbon Dioxide (22-30) mmol/L BUN (7-17) mg/dL Glucose (74-99) mg/dL Troponin I 0.053 H* 0.047 H* (0.000-0.034) ng/mL Total Protein (6.3-8.2) g/dL Albumin (3.5-5.0) g/dL 03/22/22 03/22/22 Range/Units 05:11 05:11 RBC (3.80-5.40) m/uL Hgb (11.4-16.0) gm/dL Hct (34.0-46.0) % MCHC (31.0-37.0) g/dL RDW (11.5-15.5) % Lymphocytes # (1.0-4.8) k/uL APTT 31.0 H (22.0-30.0) sec D-Dimer (<0.60) mg/L FEU Carbon Dioxide 32 H (22-30) mmol/L BUN (7-17) mg/dL Glucose (74-99) mg/dL Troponin I (0.000-0.034) ng/mL Total Protein 6.0 L (6.3-8.2) g/dL Albumin 2.6 L (3.5-5.0) g/dL Thrombosis Risk Factor Assmnt - Choose All That Apply Any of the Below Risk Factors Present?: Yes Each Factor Represents 1 point: Abnormal pulmonary function (COPD), Heart failure (<1month), Obesity (BMI >25), Swollen legs (current) Other Risk Factors: Yes Each Risk Factor Represents 2 Points: Age 61-74 years Thrombosis Risk Factor Assessment Total Risk Factor Score: 6 Thrombosis Risk Factor Assessment Level: High Risk Assessment and Plan Assessment: New-onset atrial fibrillation with RVR Acute CHF, echo pending Acute respiratory failure secondary to the above Chronic hypoxic and hypercapnic respiratory failure, on normally wears 6 L nasal cannula O2 at home Left adrenal mass , large, increased from exam 5 years ago CAD, history of [place] COPD Hypertension Hyperlipidemia Morbid obesity, BMI 33.3 Plan: Continue on current medication regime ,monitoring and symptomatic treatment. Anticoagulated on heparin drip. Antiarrhythmics with amiodarone. Echo pending. Further evaluation of adrenal mass, The impression and plan of care has been dictated as directed. : I performed a history and examination of this patient, discussed the same with the dictator. I agree with the dictator's note ,documented as a scribe. Any additional findings or plans will be noted.
[2022-03-22] MEDS: LEVOTHYROXINE 25 MCG TAB PO SCH (16:02)
[2022-03-22] MEDS: PANTOPRAZOLE 40 MG/10 ML VIAL IVP SCH (16:02)
[2022-03-22] MEDS: SERTRALINE 100 MG TAB PO SCH (16:02)
[2022-03-22 16:45] LABS: Glucose,Whole Blood 97 mg/dL (70-110)
--- NOTE | 2022-03-22 17:36 | CA ---
Transthoracic Echo Report Name: Ramila Victor Age: 71 Gender: F : 1950 Exam Date: 03/22/2022 13:47 Exam Location: [place] [facility] Ht (in): 65 Wt (lb): 200 Ordering Physician: Joyce Worley Attending/Referring Phys: [id number], Brunilda Stock Room Manager Adelita Fowler RDCS Procedure CPT: Indications: LV function Cardiac Hx: Technical Quality: Technically difficult study Contrast 1: Lumason Total Dose (mL): Contrast 2: Total Dose (mL): MEASUREMENTS (Male / Female) Normal Values 2D ECHO LV Diastolic Diameter PLAX 4.9 cm 4.2 - 5.9 / 3.9 - 5.3 cm LV Systolic Diameter PLAX 4.4 cm IVS Diastolic Thickness 1.3 cm 0.6 - 1.0 / 0.6 - 0.9 cm LVPW Diastolic Thickness 1.7 cm 0.6 - 1.0 / 0.6 - 0.9 cm LV Relative Wall Thickness 0.6 RV Internal Dim ED PLAX 4.2 cm LA Systolic Diameter LX 5.2 cm 3.0 - 4.0 / 2.7 - 3.8 cm M-MODE Aortic Root Diameter MM 2.4 cm LA Systolic Diameter MM 4.7 cm LA Ao Ratio MM 1.9 MV E Point Septal Separation 0.4 cm DOPPLER MV E' Velocity 4.7 cm/s FINDINGS Left Ventricle Left ventricular ejection fraction is estimated at 20-25%. Mildly increased left ventricular wall thickness. Right Ventricle Severe right ventricular dilatation. Right Atrium Normal right atrial size. Left Atrium Severely increased left atrial diameter. Mitral Valve Structurally normal mitral valve. Mild mitral regurgitation. Aortic Valve Aortic valve sclerosis. Tricuspid Valve Structurally normal tricuspid valve. Pulmonic Valve Structurally normal pulmonic valve. Pericardium Small Pericardial effusion. Aorta CONCLUSIONS Technically suboptimal study Severe LV systolic dysfunction Small pericardial effusion Previewed by: Dr. Stewart Crawford MD (Electronically Signed) Final Date: 22 March 2022 17:35
[2022-03-22 19:51] LABS: Glucose,Whole Blood 127 mg/dL (70-110)
[2022-03-22] MEDS: ATORVASTATIN 40 MG TAB PO SCH (21:31)
[2022-03-22] MEDS: ACETAMINOPHEN TAB 325 MG TAB PO PRN (21:45)
[2022-03-23 05:53] LABS: Glucose,Whole Blood 91 mg/dL (70-110)
[2022-03-23] MEDS: LEVOTHYROXINE 25 MCG TAB PO SCH (06:14)
[2022-03-23] MEDS: PANTOPRAZOLE 40 MG/10 ML VIAL IVP SCH (08:42)
[2022-03-23] MEDS: SERTRALINE 100 MG TAB PO SCH (08:42)
[2022-03-23] MEDS: FUROSEMIDE 10 MG/ML 4 ML VIAL IV SCH ×2 (08:42→20:58)
[2022-03-23] MEDS: APIXABAN 5 MG TAB PO SCH (08:42)
[2022-03-23] MEDS: METOPROLOL TARTRATE 25 MG TAB PO SCH ×2 (08:42→20:58)
[2022-03-23] MEDS: AMIODARONE 200 MG TAB PO SCH ×2 (10:34→20:59)
[2022-03-23 11:03] LABS: Calcium 8.7 mg/dL (8.4-10.2); Potassium 3.8 mmol/L (3.5-5.1)
[2022-03-23] MEDS ORDERED: NITROGLYCERIN SL TABS 0.4 MG TAB SUBLINGUAL PRN (11:42)
[2022-03-23] MEDS ORDERED: ALPRAZolam 0.5 MG TAB PO PRN (11:42)
[2022-03-23] MEDS ORDERED: ALPRAZolam 0.25 MG TAB PO PRN (11:42)
[2022-03-23 11:43] LABS: Glucose,Whole Blood 98 mg/dL (70-110)
--- NOTE | 2022-03-23 12:13 | P.PN ---
Subjective Progress Note Date: 03/23/22 HISTORY OF PRESENT ILLNESS: This is a 71-year-old female with a past medical history significant for hypertension, hyperlipidemia, hypothyroidism, COPD with home oxygen, and congestive heart failure. 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 We have been asked to see the patient in consultation for congestive heart failure and atrial fibrillation. Patient examined at the bedside. Patient presented to the hospital with a chief complaint of shortness of breath and increased lower extremity edema for the last week. She reports that her pulse ox at home was in the 50s. The patient is prescribed Lasix on an outpatient basis. However she states she does not take this daily. Patient also reports she did not begin taking it daily when she noticed her increased lower extremity edema and her shortness of breath. She also reports she is not compliant with a low-sodium diet. She denies chest pain or pressure. The patient is currently on IV amiodarone and IV heparin. Patient's blood pressure stable with a recent reading of 115/69. She is on 6 L nasal cannula. * EKG reveals A. fib with RVR * Chest xray there is evidence for some congestive heart failure with increased pleural fluid compared to old exam. Pulmonary congestion increased. * Laboratory data: WBC 6.3. Hemoglobin 9.5. Platelet count 170. Sodium 137. Potassium 3.5. BUN 6:15. Creatinine 0.72. Troponin 0.024. 0.053. 0.047. * Current home cardiac medications include aspirin 81 mg daily, Lipitor 40 mg at night, Lasix 40 mg daily, lisinopril 5 mg daily 03/23/2022 Patient examined this morning at the bedside. Patient denies chest pain or pressure. She reports improvement in her shortness of breath. She denies any palpitations. Telemetry reveals atrial fibrillation with a heart rate in the 120s. She remains on IV amiodarone. Echocardiogram completed revealed ejection fraction 20-25% with small pericardial effusion. Patient's blood pressures remain on the lower side with a systolic ranging [place] [id number]. PHYSICAL EXAM: VITAL SIGNS: Reviewed. GENERAL: Well-developed in no acute distress. HEENT: Head is normocephalic. Pupils are equal, round. Sclerae anicteric. Mucous membranes of the mouth are moist. Neck supple. No JVD or thyromegaly LUNGS: Respirations even and unlabored. Lungs essentially clear to auscultation bilaterally. HEART: Tachycardic. Irregular rate and rhythm. S1 and S2 heard. ABDOMEN: Soft. Nondistended. Nontender. EXTREMITIES: Normal range of motion. No clubbing or cyanosis. Peripheral pulses intact. Trace lower extremity edema NEUROLOGIC: Awake and alert. Oriented x 3. ASSESSMENT: Shortness of breath Acute on chronic heart failure with reduced EF New-onset atrial fibrillation with RVR Hypertension Hyperlipidemia COPD with home oxygen use Hypothyroidism New onset cardiomyopathy, may be secondary to A. fib with RVR, cannot exclude underlying CAD PLAN: Discontinue IV amiodarone. Begin oral amiodarone 400 mg twice a day Continue current dose of metoprolol Continue telemetry monitoring Continue IV lasix Patient to undergo cardiac catheterization tomorrow to rule out CAD. If cardiac catheterization is normal, will plan for CHINO and cardioversion on . Hold Eliquis tonight and tomorrow morning NPO at midnight Further recommendations pending patient's course Nurse practitioner note has been reviewed by physician. Signing provider agrees with the documented findings, assessment, and plan of care. Objective - Vital Signs Vital signs: Vital Signs Temp 98.0 F 03/22/22 23:24 Pulse 123 H 03/23/22 08:00 Resp 16 03/23/22 08:00 BP 113/68 03/23/22 08:00 Pulse Ox 98 03/23/22 08:00 FiO2 Intake & Output 03/22/22 03/23/22 03/23/22 18:59 06:59 18:59 Intake Total 236 487 118 Output Total 500 900 900 Balance -324 -143 -426 Weight 108 kg Intake: Intake, IV Titration 250 Amount Amiodarone 450 mg In 250 Dextrose 5% in Water 250 ml @ 0.5 MG/MIN 16.667 mls/hr IV .Q15H [facility] Rx#: [id number] Oral 236 237 118 Output: Urine 500 900 900 Other: Voiding Method External Catheter External Catheter External Catheter # Voids 1 - Labs CBC & Chem 7: 03/22/22 05:11 03/23/22 10:32 Labs: Abnormal Lab Results - Last 24 Hours (Table) 03/22/22 03/23/22 Range/Units 19:49 10:32 Chloride 94 L (98-107) mmol/L Carbon Dioxide 39 H (22-30) mmol/L POC Glucose (mg/dL) 127 H (70-110) mg/dL Microbiology - Last 24 Hours (Table) 03/22/22 00:21 Blood Culture - Preliminary Blood No Growth after 24 hours
[2022-03-23 16:49] LABS: Glucose,Whole Blood 121 mg/dL (70-110)
--- NOTE | 2022-03-23 18:56 | P.PN ---
Subjective Progress Note Date: 03/23/22 H&P Date: 03/22/22 Chief Complaint: Shortness of breath,"panicky sensation" This pleasant 71-year-old morbidly obese female presented to the ER with complaints of feeling panicky, shortness of breath without chest pain, diaphoresis or syncope. Reports bilateral lower extremity edema times nearly 1 week. Denies nausea vomiting or diarrhea. Denies abdominal pain. Denies lightheadedness dizziness or focal deficits. Normally wears 6 L of nasal cannula O2 at home, O2 sat rate 54% and daughter increased to 8 L prior to EMS arrival.EKG reporting atrial fibrillation with RVR Chest CT reported no evidence of PE, bilateral pleural effusions, some basilar pulmonary infiltrates and atelectasis increased, large left adrenal mass increased from exam 5 years ago. Chest x-ray reporting some CHF with increased pleural fluid. Afebrile, normal WBC, hemoglobin 9.5, platelets 170, INR 1.1, sodium 137, potassium 3.5, bicarb 32, BUN 15, creatinine 0.72. Troponin 0.024, 0.053, 0.047. Currently maintained on heparin and amiodarone drips. Telemetry sinus rhythm. 03/23/2022 diuresing well, decreasing edema. Reports breathing easier. Maintaining O2 sats in the high 90s on 6 L nasal cannula. Maintained on amiodarone drip, heart rate currently in the 120s, appears sinus. Blood pressure soft. Echocardiogram completed yesterday reported technically [place] boptimal study with severe LV systolic dysfunction, EF estimated at 20-25%, small pericardial effusion. Denies chest pain, palpitations. Objective - Vital Signs Vital signs: Vital Signs Temp 98.0 F 03/22/22 23:24 Pulse 124 H 03/23/22 16:00 Resp 16 03/23/22 16:00 BP 117/67 03/23/22 16:00 Pulse Ox 91 L 03/23/22 16:00 FiO2 Intake & Output 03/22/22 03/23/22 03/23/22 18:59 06:59 18:59 Intake Total 236 487 476 Output Total 149 245 4741 Balance -123 -990 -3973 Weight 108 kg Intake: Intake, IV Titration 250 Amount Amiodarone 450 mg In 250 Dextrose 5% in Water 250 ml @ 0.5 MG/MIN 16.667 mls/hr IV .Q15H [facility] Rx#: [id number] Oral 236 237 476 Output: Urine 412 517 0877 Other: Voiding Method External Catheter External Catheter External Catheter # Voids 1 # Bowel Movements 1 - Exam - Exam GENERAL: Morbidly obese ,Sitting up in chair, alert and oriented x3, NAD HEENT: Pupils are round and equally reacting to light. EOMI. No scleral icterus. No conjunctival pallor. Normocephalic, atraumatic. Neck:supple, no JVD CARDIOVASCULAR: S1 and S2 present. Regular, tachycardic. No murmurs, rubs, or gallops. PULMONARY: Diminished air entry with fine bibasilar crackles. ABDOMEN: Soft, nontender, nondistended, normoactive bowel sounds. No palpable organomegaly. EXTREMITIES: Decreasing bilateral lower extremity edema ,No cyanosis, clubbing. NEUROLOGICAL: Gross neurological examination did not reveal any focal deficits. SKIN: No rashes, warm and dry. - Labs CBC & Chem 7: 03/22/22 05:11 03/23/22 10:32 Labs: Abnormal Lab Results - Last 24 Hours (Table) 03/22/22 03/23/22 03/23/22 Range/Units 19:49 10:32 16:48 Chloride 94 L (98-107) mmol/L Carbon Dioxide 39 H (22-30) mmol/L POC Glucose (mg/dL) 127 H 121 H (70-110) mg/dL Microbiology - Last 24 Hours (Table) 03/22/22 00:21 Blood Culture - Preliminary Blood No Growth after 24 hours Assessment and Plan Assessment: New-onset atrial fibrillation with RVR Acute CHF, diastolic dysfunction, EF 20-25%. New-onset cardiomyopathy, workup in progress as per cardiology Acute respiratory failure secondary to the above Chronic hypoxic and hypercapnic respiratory failure, on normally wears 6 L nasal cannula O2 at home Left adrenal mass , large, increased from exam 5 years ago. Further follow-up outpatient with endocrinology. CAD, history of [place] COPD Hypertension Hyperlipidemia Morbid obesity, BMI 33.3 Plan: Continue on current medication regime ,monitoring and symptomatic treatment. Anticoagulation and Antiarrhythmics as per cardiology. Cardiology discussing cardiac catheterization. Further evaluation of adrenal mass, outpatient with endocrinology. Gnosis guarded given multiple complex medical issues. PT/OT consulted. The impression and plan of care has been dictated as directed. : I performed a history and examination of this patient, discussed the same with the dictator. I agree with the dictator's note ,documented as a scribe. Any additional findings or plans will be noted.
[2022-03-23 20:07] LABS: Glucose,Whole Blood 105 mg/dL (70-110)
[2022-03-23] MEDS: ATORVASTATIN 40 MG TAB PO SCH (20:45)
[2022-03-24] MEDS: SODIUM CHLORIDE 0.9% 1,000 ML in EMPTY BAG 1 BAG IV SCH ×3 (00:23→16:07)
[2022-03-24] MEDS ORDERED: ASPIRIN 325 MG TAB PO ONE (05:00)
[2022-03-24] MEDS ORDERED: ATORVASTATIN 80 MG TAB PO ONE (05:00)
[2022-03-24 06:12] LABS: Glucose,Whole Blood 90 mg/dL (70-110)
[2022-03-24] MEDS: SERTRALINE 100 MG TAB PO SCH (06:26)
[2022-03-24] MEDS: AMIODARONE 200 MG TAB PO SCH ×2 (06:26→21:39)
[2022-03-24] MEDS: LEVOTHYROXINE 25 MCG TAB PO SCH (06:26)
[2022-03-24] MEDS: PANTOPRAZOLE 40 MG TABLET PO SCH (06:26)
[2022-03-24] MEDS: METOPROLOL TARTRATE 25 MG TAB PO SCH ×3 (06:26→21:39)
[2022-03-24] MEDS ORDERED: HEPARIN SODIUM,PORCINE 2,500 UNIT in SODIUM CHLORIDE 0.9% 250 ML IRRIGATION PRN (07:00)
[2022-03-24] MEDS ORDERED: HEPARIN SODIUM,PORCINE 10,000 UNIT in SODIUM CHLORIDE 0.9% 1,000 ML IRRIGATION PRN (07:00)
[2022-03-24] MEDS: FUROSEMIDE 10 MG/ML 4 ML VIAL IV SCH (09:01)
[2022-03-24 09:24] LABS: Calcium 8.7 mg/dL (8.4-10.2); Potassium 3.5 mmol/L (3.5-5.1)
[2022-03-24] MEDS ORDERED: VERAPAMIL 2.5 MG/ML 2 ML AMP ONE (09:44)
[2022-03-24] MEDS ORDERED: HEPARIN SODIUM 1,000 UN/ML (10ML VL) ONE (09:44)
[2022-03-24] MEDS ORDERED: fentaNYL (PF) 50 MCG/ML 2 ML AMP ONE (09:44)
[2022-03-24] MEDS ORDERED: fentaNYL (PF) 50 MCG/ML 2 ML AMP IVP ONE (10:08)
[2022-03-24] MEDS ORDERED: SODIUM CHLORIDE 0.9% 1,000 ML IV ONE (10:11)
[2022-03-24] MEDS ORDERED: LIDOCAINE 1% INJ 10MG/ML (30 ML VIAL-PF) SQ ONE ×2 (10:17→10:24)
[2022-03-24] MEDS ORDERED: VERAPAMIL SYRINGE (5 MG/10 ML) INTRAARTER ONE (10:25)
[2022-03-24] MEDS ORDERED: METOPROLOL TARTRATE 5 MG/5 ML VIAL IVP ONE ×3 (10:26→10:31)
[2022-03-24] MEDS ORDERED: HEPARIN SODIUM 1,000 UN/ML (10ML VL) IVP ONE (10:30)
[2022-03-24] MEDS ORDERED: IOPAMIDOL-370 125ML BTL INJ ONE (10:33)
[2022-03-24] MEDS ORDERED: RX INFO: IV CONTRAST WAS GIVEN 1 EACH MISC MISCELLANE PRN (10:40)
[2022-03-24] MEDS ORDERED: SODIUM CHLORIDE 0.9% 1,000 ML IV SCH (10:45)
--- NOTE | 2022-03-24 10:50 | P.CARDCATH ---
Date of Procedure: 03/24/22 Description of Procedure: Cardiac Catheterization: The patient 71-year-old female who presented with symptoms of progressive dyspnea and evidence of CHF, she was found to be in atrial fibrillation and had evidence of severe cardiomyopathy on echocardiogram . Recommendations were made regarding cardiac catheterization, the risks and the complications were discussed with the patient who is in full understanding and agreement. Procedure Description: Patient was brought to lab support technician in fasting semi-sedated state after receiving Fentanyl and Benadryl achieiving moderate conscious sedated state. Using Xylocaine Anesthesia and Seldinger technique, a 6-Mauritanian sheath was introduced in the right radial artery . Subsequently, selective coronary angiography was performed using a 5-Mauritanian 3.5 bend Santana catheter. Multiple views of the coronary artery including hemiaxial views were obtained. The right Santana catheter was used to cross the aortic valve and LVEDP was calculated. Following that, catheter and sheath were removed. Hemostasis was obtained with deployment of TR band . There was no immediate complication. Patient was returned to room in stable condition. Of note, the patient received a total of 5000 units of intravenous heparin as well as intra-arterial verapamil. Findings: Left main: This is a large sized vessel, bifurcating into LAD and left circumflex, left main has no high-grade stenosis LAD: This is a large size vessel, reaching to the apex with a wraparound the apex segment giving rise to a diagonal branch, the LAD and its branches have no evidence of high-grade stenosis Left circumflex: This is a large nondominant vessel, giving rise to 2 obtuse marginal branch of the left circumflex and its branches have no evidence of high-grade stenosis RCA: This is a dominant vessel, bifurcating distally into PDA and PLV, the RCA has no evidence of high-grade stenosis Fluoroscopy mitral annulus calcification was noted Left Ventriculogram: Not performed Hemodynamics: There was no gradient across the aortic valve , LVEDP was 20-25 mmHg Conclusion: 1. No evidence of obstructive coronary disease 2. Right dominance 3. Mitral anulus calcification 4. Elevated LVEDP Recommendations: I have recommended to proceed with CHINO guided cardioversion, maximize medical therapy with guidelines guided treatment. The findings and the recommendations were discussed with the patient and the family and they were in full understanding and agreement. Duration of sedation is 20 minutes.
[2022-03-24] MEDS ORDERED: IPRATROPIUM-ALBUTEROL 3 ML NEB INHALATION PRN (10:51)
[2022-03-24 11:45] LABS: Glucose,Whole Blood 109 mg/dL (70-110)
[2022-03-24] MEDS: SACUBITRIL/VALSARTAN 24 MG-26 MG TABLET PO SCH ×2 (11:59→21:39)
[2022-03-24] MEDS ORDERED: Potassium Replacement Protocol 1 EACH MISC MISCELLANE PRN (13:49)
--- NOTE | 2022-03-24 14:04 | P.PN ---
Subjective Progress Note Date: 03/24/22 H&P Date: 03/22/22 Chief Complaint: Shortness of breath,"panicky sensation" This pleasant 71-year-old morbidly obese female presented to the ER with complaints of feeling panicky, shortness of breath without chest pain, diaphoresis or syncope. Reports bilateral lower extremity edema times nearly 1 week. Denies nausea vomiting or diarrhea. Denies abdominal pain. Denies lightheadedness dizziness or focal deficits. Normally wears 6 L of nasal cannula O2 at home, O2 sat rate 54% and daughter increased to 8 L prior to EMS arrival.EKG reporting atrial fibrillation with RVR Chest CT reported no evidence of PE, bilateral pleural effusions, some basilar pulmonary infiltrates and atelectasis increased, large left adrenal mass increased from exam 5 years ago. Chest x-ray reporting some CHF with increased pleural fluid. Afebrile, normal WBC, hemoglobin 9.5, platelets 170, INR 1.1, sodium 137, potassium 3.5, bicarb 32, BUN 15, creatinine 0.72. Troponin 0.024, 0.053, 0.047. Currently maintained on heparin and amiodarone drips. Telemetry sinus rhythm. 03/23/2022 diuresing well, decreasing edema. Reports breathing easier. Maintaining O2 sats in the high 90s on 6 L nasal cannula. Maintained on amiodarone drip, heart rate currently in the 120s, appears sinus. Blood pressure soft. Echocardiogram completed yesterday reported technically azevedo boptimal study with severe LV systolic dysfunction, EF estimated at 20-25%, small pericardial effusion. Denies chest pain, palpitations. 03/24/22 nothing by mouth, awaiting cardiac catheterization. Renal function stable. If no evidence of CAD, CHINO/cardioversion being discussed. Denies chest pain, palpitations or increased shortness of breath. Maintaining O2 sats in the mid to high 90s on 6 L nasal cannula. Heart rates 1 teens to 120s. Potassium 3.5. Objective - Vital Signs Vital signs: Vital Signs Temp 97.7 F 03/24/22 08:00 Pulse 113 H 03/24/22 08:00 Resp 19 03/24/22 08:00 BP 108/62 03/24/22 08:00 Pulse Ox 98 03/24/22 08:00 FiO2 Intake & Output 09/03/24/22 03/24/22 18:59 06:59 18:59 Intake Total 476 50 Output Total 1550 650 Balance -1074 -650 50 Intake: IV 50 Oral 476 Output: Urine 1550 650 Other: Voiding Method External Catheter External Catheter # Voids 1 # Bowel Movements 1 - Exam - Exam GENERAL: Morbidly obese ,Sitting up in bed, alert and oriented x3, NAD HEENT: Pupils are round and equally reacting to light. EOMI. No scleral icterus. No conjunctival pallor. Normocephalic, atraumatic. Neck:supple, no JVD CARDIOVASCULAR: S1 and S2 present. Irregular, tachycardic. No murmurs, rubs, or gallops. PULMONARY: Diminished air entry with fine bibasilar crackles. ABDOMEN: Soft, nontender, nondistended, normoactive bowel sounds. No palpable organomegaly. EXTREMITIES: Decreasing bilateral lower extremity edema ,No cyanosis, clubbing. NEUROLOGICAL: Gross neurological examination did not reveal any focal deficits. SKIN: No rashes, warm and dry. - Labs CBC & Chem 7: 03/22/22 05:11 03/24/22 08:02 Labs: Abnormal Lab Results - Last 24 Hours (Table) 03/23/22 03/24/22 Range/Units 16:48 08:02 Chloride 95 L (98-107) mmol/L Carbon Dioxide 37 H (22-30) mmol/L POC Glucose (mg/dL) 121 H (70-110) mg/dL Microbiology - Last 24 Hours (Table) 03/22/22 00:21 Blood Culture - Preliminary Blood No Growth after 48 hours Assessment and Plan Assessment: New-onset atrial fibrillation with RVR Acute CHF, diastolic dysfunction, EF 20-25%. New-onset cardiomyopathy, workup in progress as per cardiology Acute respiratory failure secondary to the above Chronic hypoxic and hypercapnic respiratory failure, on normally wears 6 L nasal cannula O2 at home Left adrenal mass , large, increased from exam 5 years ago. Further follow-up outpatient with endocrinology. CAD, history of ID COPD Hypertension Hyperlipidemia Morbid obesity, BMI 33.3 Plan: Continue on current medication regime ,monitoring and symptomatic treatment. Cardiac catheterization pending.potential CHINO/cardioversion .Prognos is guarded given multiple complex medical issues. PT/OT recommendations pending. The impression and plan of care has been dictated as directed. : I performed a history and examination of this patient, discussed the same with the dictator. I agree with the dictator's note ,documented as a scribe. Any additional findings or plans will be noted.
[2022-03-24] MEDS: SPIRONOLACTONE 25 MG TAB PO SCH (16:05)
[2022-03-24 16:31] LABS: Glucose,Whole Blood 101 mg/dL (70-110)
[2022-03-24] MEDS: FUROSEMIDE 20 MG TAB PO SCH (17:30)
[2022-03-24 20:09] LABS: Glucose,Whole Blood 147 mg/dL (70-110)
[2022-03-24] MEDS: APIXABAN 5 MG TAB PO SCH (21:39)
[2022-03-24] MEDS: ATORVASTATIN 40 MG TAB PO SCH (21:39)
[2022-03-25] MEDS: SODIUM CHLORIDE 0.9% 1,000 ML in EMPTY BAG 1 BAG IV SCH ×2 (05:35→13:48)
[2022-03-25 06:01] LABS: Glucose,Whole Blood 85 mg/dL (70-110)
[2022-03-25] MEDS: LACTATED RINGERS 1,000 ML IV SCH (07:00)
[2022-03-25] MEDS: PANTOPRAZOLE 40 MG TABLET PO SCH (09:08)
[2022-03-25] MEDS: LEVOTHYROXINE 25 MCG TAB PO SCH (09:08)
[2022-03-25] MEDS: SPIRONOLACTONE 25 MG TAB PO SCH (09:30)
[2022-03-25 09:32] LABS: Calcium 8.6 mg/dL (8.4-10.2); Potassium 3.4 mmol/L (3.5-5.1)
[2022-03-25] MEDS ORDERED: IV FLUID CONTINUATION 1,000 ML IV ONE (10:37)
[2022-03-25] MEDS ORDERED: PROPOFOL 10 MG/ML 20 ML VIAL IV ONE (10:50)
[2022-03-25] MEDS ORDERED: MIDAZOLAM 2 MG/2 ML VIAL ONE (10:50)
[2022-03-25] MEDS ORDERED: LIDOCAINE 2% INJ 20 MG/ML (2 ML VIAL) ONE (10:50)
[2022-03-25] MEDS ORDERED: PHENYLEPHRINE-0.9% NACL SYG 1,000 MCG/10 ML SYRINGE ONE (10:50)
[2022-03-25] MEDS ORDERED: KETAMINE 10 MG/ML 20 ML VIAL ONE (10:50)
--- NOTE | 2022-03-25 11:15 | P.PN ---
Subjective Progress Note Date: 03/25/22 PROGRESS NOTE The patient is a 74-year-old female who presented with progressive dyspnea and was found to have severe cardiomyopathy, she was in atrial fibrillation with rapid ventricular response. She underwent cardiac catheterization yesterday and had no evidence of significant obstructive disease. She's feeling better today. Her breathing is better. She denies any chest discomfort, dizziness or p alpitations. She continues to be on Lipitor 40 mg daily, Lasix 20 g twice a day, levothyroxine, protonic's, metoprolol 25 mg 3 times a day, amiodarone 400 mg twice a day, Aldactone 25 mg daily and Entresto 2426 milligrams twice a day in addition to Eliquis 5 mg twice a day. she continues to be in atrial fibrillation with rapid ventricular response PHYSICAL EXAMINATION: Blood pressure 110/70 heart rate 115 LUNGS: Clear to auscultation HEART: Irregular rate and rhythm, S1, S2. No S3. systolic murmur at the base ABDOMEN: Soft, nontender, no organomegaly EXTREMETIES: +1-2 edema LAB: Potassium 3.4, BUN 17, creatinine 0.77 IMPRESSION: 1. Atrial fibrillation with rapid ventricle response, unknown duration 2. CHF with reduced systolic function 3. Hypertension 4. Hyperlipidemia PLAN: 1. Proceed with CHINO guided cardioversion 2. Her cardiomyopathy could be secondary to her atrial fibrillation and rapid ventricular response, although the possibility of idiopathic cardiomyopathy cannot be excluded 3. Continue present therapy 4. Depending on her progress further recommendations will be made Objective - Vital Signs Vital signs: Vital Signs Temp 98 F 03/25/22 08:00 Pulse 115 H 03/25/22 10:15 Resp 16 03/25/22 10:15 BP 114/68 03/25/22 10:15 Pulse Ox 96 03/25/22 10:15 FiO2 Intake & Output 03/24/22 03/25/22 03/25/22 18:59 06:59 18:59 Intake Total 486 Output Total 300 1100 Balance 186 -1100 Intake: IV 50 Oral 436 Output: Urine 300 1100 Other: Voiding Method Incontinent Incontinent External Catheter External Catheter External Catheter - Labs CBC & Chem 7: 03/22/22 05:11 03/25/22 07:45 Labs: Abnormal Lab Results - Last 24 Hours (Table) 03/24/22 03/24/22 03/25/22 Range/Units 08:02 20:04 07:45 Potassium 3.4 L (3.5-5.1) mmol/L Chloride 96 L (98-107) mmol/L Carbon Dioxide 35 H (22-30) mmol/L POC Glucose (mg/dL) 147 H (70-110) mg/dL Magnesium 1.5 L (1.6-2.3) mg/dL Microbiology - Last 24 Hours (Table) 03/22/22 00:21 Blood Culture - Preliminary Blood No Growth after 72 hours
--- NOTE | 2022-03-25 11:17 | P.PCN ---
Date of Procedure: 03/25/22 Description of Procedure: Indication: Atrial fibrillation Procedure Description: After explaining the procedure to the patient, it's risk and complications, blood pressure, heart rate and O2 saturation were monitored. The throat was sprayed with Cetacaine. Patient received sedation per anesthesia department. The probe was introduced into the esophagus without difficulty. Images were obtained. Following that, the probe was removed. There was no immediate complication. Findings: Biatrial enlargement was noted, left atrial appendage is normal. The overall systolic function is impaired with an ejection fraction of 35-40%, mitral valve, tricuspid valve and pulmonic valve appears to be normal. Fibrocalcific changes of the aortic cusp were noted with preserved opening. No pericardial effusion was noted. Descending thoracic aorta revealed mild atherosclerosis. Contrast bubble study is no shunting across the intra-atrial septum Doppler: Pulse wave and color Doppler were obtained, mild mitral was mild to moderate tricuspid regurgitation. There was no shunting across the intra-atrial septum Conclusion: 1. Biatrial enlargement 2. Normal appearance of the left atrial appendage 3. Moderately impaired systolic function 4. Mild mitral with mild to moderate tricuspid regurgitation 5. Mild atherosclerotic changes of the descending thoracic aorta
--- NOTE | 2022-03-25 11:18 | P.PCN ---
Date of Procedure: 03/25/22 Description of Procedure: Cardioversion Indication atrial fibrillation After explaining the procedure the patient as well as the risk and the complications, after performing CHINO in obtaining a sedated state, a synchronized cardioversion using 150 J was performed with gnosticist of sinus mechanism. The patient was in sinus bradycardia. There was no immediate complications.
--- NOTE | 2022-03-25 12:33 | P.PN ---
Progress Note - Text Progress Note Date: 03/25/22 Patient not seen, off the floor for procedure. The impression and plan of care has been dictated as directed. : I performed a history and examination of this patient, discussed the same with the dictator. I agree with the dictator's note ,documented as a scribe. Any additional findings or plans will be noted.
[2022-03-25] MEDS ORDERED: SODIUM CHLORIDE 0.9% 1,000 ML IV ONE (12:55)
[2022-03-25] MEDS: SACUBITRIL/VALSARTAN 24 MG-26 MG TABLET PO SCH ×2 (14:18→20:18)
[2022-03-25] MEDS: APIXABAN 5 MG TAB PO SCH ×2 (14:18→20:18)
[2022-03-25] MEDS: FUROSEMIDE 20 MG TAB PO SCH ×2 (14:57→17:35)
[2022-03-25] MEDS: SERTRALINE 100 MG TAB PO SCH (15:08)
[2022-03-25 16:47] LABS: Glucose,Whole Blood 142 mg/dL (70-110)
[2022-03-25] MEDS: METOPROLOL TARTRATE 25 MG TAB PO SCH ×2 (17:04→20:18)
[2022-03-25] MEDS: AMIODARONE 200 MG TAB PO SCH ×2 (17:04→20:18)
[2022-03-25] MEDS: SODIUM CHLORIDE 0.9% 1,000 ML IV SCH (17:35)
[2022-03-25 20:09] LABS: Glucose,Whole Blood 121 mg/dL (70-110)
[2022-03-25] MEDS: ATORVASTATIN 40 MG TAB PO SCH (20:18)
[2022-03-26] MEDS: SODIUM CHLORIDE 0.9% 1,000 ML in EMPTY BAG 1 BAG IV SCH ×3 (04:12→14:41)
[2022-03-26] MEDS: LACTATED RINGERS 1,000 ML IV SCH (04:43)
[2022-03-26 06:04] LABS: Glucose,Whole Blood 105 mg/dL (70-110)
[2022-03-26] MEDS: PANTOPRAZOLE 40 MG TABLET PO SCH (06:39)
[2022-03-26] MEDS: LEVOTHYROXINE 25 MCG TAB PO SCH (06:39)
[2022-03-26] MEDS: SACUBITRIL/VALSARTAN 24 MG-26 MG TABLET PO SCH ×2 (08:47→19:42)
[2022-03-26] MEDS: AMIODARONE 200 MG TAB PO SCH ×2 (08:47→19:41)
[2022-03-26] MEDS: SERTRALINE 100 MG TAB PO SCH (08:48)
[2022-03-26] MEDS: METOPROLOL TARTRATE 25 MG TAB PO SCH (08:48)
[2022-03-26] MEDS: APIXABAN 5 MG TAB PO SCH ×2 (08:48→19:41)
[2022-03-26] MEDS: FUROSEMIDE 20 MG TAB PO SCH (08:48)
[2022-03-26] MEDS: SPIRONOLACTONE 25 MG TAB PO SCH (08:48)
--- NOTE | 2022-03-26 10:04 | P.PN ---
Subjective Progress Note Date: 03/26/22 PROGRESS NOTE The patient is a 74-year-old female who presented with progressive dyspnea and was found to have severe cardiomyopathy, she was in atrial fibrillation with rapid ventricular response. She underwent cardiac catheterization yesterday and had no evidence of significant obstructive disease. She's feeling better today. Her breathing is better. She denies any chest discomfort, dizziness or p alpitations. She continues to be on Lipitor 40 mg daily, Lasix 20 g twice a day, levothyroxine, protonic's, metoprolol 25 mg 3 times a day, amiodarone 400 mg twice a day, Aldactone 25 mg daily and Entresto 2426 milligrams twice a day in addition to Eliquis 5 mg twice a day. she continues to be in atrial fibrillation with rapid ventricular response June 25, The patient is feeling better, her breathing is stable, she continues to be in sinus mechanism. She denies any chest discomfort, dizziness or palpitations. She underwent cardioversion yesterday with religious of sinus mechanism. She is hemodynamically stable. She continues to have peripheral edema. She continues to be on amiodarone 200 mg twice a day, furosemide 20 mg twice a day, metoprolol 25 mg twice a day, Aldactone 25 mg daily,Entresto when he 426 milligrams twice a day,Eliquis 5 mg twice a day, Lipitor 40 mg daily PHYSICAL EXAMINATION: Blood pressure 103/60 heart rate 57 LUNGS: Clear to auscultation HEART: Regular rate and rhythm, S1, S2. No S3. systolic murmur at the base ABDOMEN: Soft, nontender, no organomegaly EXTREMETIES: +1 edema LAB: Potassium 4.0, BUN 25, creatinine 1.52 IMPRESSION: 1. Atrial fibrillation with rapid ventricle response, post cardioversion, back in sinus mechanism 2. CHF with reduced systolic function, nonischemic cardiomyopathy 3. Hypertension 4. Hyperlipidemia 5. Elevated BUN and creatinine PLAN: 1. Decrease diuretics 2. Change to metoprolol succinate 3. Increase physical activity 4. If stable probable discharge home soon and follow renal functions. 5. Follow LV systolic function as an outpatient Objective - Vital Signs Vital signs: Vital Signs Temp 99.1 F 03/26/22 07:48 Pulse 57 L 03/26/22 08:45 Resp 16 03/26/22 07:48 BP 103/63 03/26/22 07:48 Pulse Ox 92 L 03/26/22 07:48 FiO2 Intake & Output 03/25/22 03/26/22 03/26/22 18:59 06:59 18:59 Intake Total 1050 485 Output Total 300 400 200 Balance 750 85 -200 Intake: IV 800 Oral 485 Blood Product 250 Output: Urine 300 400 200 Other: Voiding Method External Catheter External Catheter External Catheter # Voids 1 - Labs CBC & Chem 7: 03/22/22 05:11 03/26/22 08:52 Labs: Abnormal Lab Results - Last 24 Hours (Table) 03/25/22 03/25/22 03/26/22 Range/Units 16:46 20:07 08:52 Sodium 135 L (137-145) mmol/L Chloride 94 L (98-107) mmol/L Carbon Dioxide 31 H (22-30) mmol/L BUN 25 H (7-17) mg/dL Creatinine 1.52 H (0.52-1.04) mg/dL Glucose 106 H (74-99) mg/dL POC Glucose (mg/dL) 142 H 121 H (70-110) mg/dL Microbiology - Last 24 Hours (Table) 03/22/22 00:21 Blood Culture - Preliminary Blood No Growth after 96 hours
[2022-03-26 11:34] LABS: Glucose,Whole Blood 108 mg/dL (70-110)
[2022-03-26 11:45] VITALS: BMI 39.6
[2022-03-26] MEDS: SODIUM CHLORIDE 0.9% 1,000 ML IV SCH (12:01)
--- NOTE | 2022-03-26 12:05 | P.PN ---
Subjective Progress Note Date: 03/26/22 H&P Date: 03/22/22 Chief Complaint: Shortness of breath,"panicky sensation" This pleasant 71-year-old morbidly obese female presented to the ER with complaints of feeling panicky, shortness of breath without chest pain, diaphoresis or syncope. Reports bilateral lower extremity edema times nearly 1 week. Denies nausea vomiting or diarrhea. Denies abdominal pain. Denies lightheadedness dizziness or focal deficits. Normally wears 6 L of nasal cannula O2 at home, O2 sat rate 54% and daughter increased to 8 L prior to EMS arrival.EKG reporting atrial fibrillation with RVR Chest CT reported no evidence of PE, bilateral pleural effusions, some basilar pulmonary infiltrates and atelectasis increased, large left adrenal mass increased from exam 5 years ago. Chest x-ray reporting some CHF with increased pleural fluid. Afebrile, normal WBC, hemoglobin 9.5, platelets 170, INR 1.1, sodium 137, potassium 3.5, bicarb 32, BUN 15, creatinine 0.72. Troponin 0.024, 0.053, 0.047. Currently maintained on heparin and amiodarone drips. Telemetry sinus rhythm. 03/23/2022 diuresing well, decreasing edema. Reports breathing easier. Maintaining O2 sats in the high 90s on 6 L nasal cannula. Maintained on amiodarone drip, heart rate currently in the 120s, appears sinus. Blood pressure soft. Echocardiogram completed yesterday reported technically azevedo boptimal study with severe LV systolic dysfunction, EF estimated at 20-25%, small pericardial effusion. Denies chest pain, palpitations. 03/24/22 nothing by mouth, awaiting cardiac catheterization. Renal function stable. If no evidence of CAD, CHINO/cardioversion being discussed. Denies chest pain, palpitations or increased shortness of breath. Maintaining O2 sats in the mid to high 90s on 6 L nasal cannula. Heart rates 1 teens to 120s. Potassium 3.5. 03/26/2022 underwent cardiac cath reporting no evidence of destructive CAD, moderately impaired systolic function, cardiology reporting EF 35-40%, [id number] tricuspid regurgitation. yesterday proceeded with successful CHINO cardioversion. Converted to sinus bradycardia. Reports breathing easier, denies chest pain, palpitations or increased shortness of breath. Postcontrast, creatinine mildly increased to 1.52. Blood pressure soft. Objective - Vital Signs Vital signs: Vital Signs Temp 99.1 F 03/26/22 07:48 Pulse 57 L 03/26/22 08:45 Resp 16 03/26/22 07:48 BP 103/63 03/26/22 07:48 Pulse Ox 92 L 03/26/22 07:48 FiO2 Intake & Output 03/25/22 03/26/22 03/26/22 18:59 06:59 18:59 Intake Total 1050 485 Output Total 300 400 200 Balance 750 85 -200 Intake: IV 800 Oral 485 Blood Product 250 Output: Urine 300 400 200 Other: Voiding Method External Catheter External Catheter External Catheter # Voids 1 - Exam - Exam GENERAL: Morbidly obese ,Sitting up in bed, alert and oriented x3, NAD HEENT: Pupils are round and equally reacting to light. EOMI. No scleral icterus. No conjunctival pallor. Normocephalic, atraumatic. Neck:supple, no JVD CARDIOVASCULAR: S1 and S2 present. Regular, mild bradycardia, No murmurs, rubs, or gallops. PULMONARY: Diminished air entry. ABDOMEN: Soft, nontender, nondistended, normoactive bowel sounds. No palpable organomegaly. EXTREMITIES: Decreasing bilateral lower extremity edema ,No cyanosis, clubbing. NEUROLOGICAL: Gross neurological examination did not reveal any focal deficits. SKIN: No rashes, warm and dry. - Labs CBC & Chem 7: 03/22/22 05:11 03/26/22 08:52 Labs: Abnormal Lab Results - Last 24 Hours (Table) 03/25/22 03/25/22 03/26/22 Range/Units 16:46 20:07 08:52 Sodium 135 L (137-145) mmol/L Chloride 94 L (98-107) mmol/L Carbon Dioxide 31 H (22-30) mmol/L BUN 25 H (7-17) mg/dL Creatinine 1.52 H (0.52-1.04) mg/dL Glucose 106 H (74-99) mg/dL POC Glucose (mg/dL) 142 H 121 H (70-110) mg/dL Microbiology - Last 24 Hours (Table) 03/22/22 00:21 Blood Culture - Preliminary Blood No Growth after 96 hours Assessment and Plan Assessment: New-onset atrial fibrillation with RVR, status post successful cardioversion Acute CHF, reduced systolic dysfunction New-onset nonischemic cardiomyopathy, Acute renal insufficiency, contrast-induced. Acute respiratory failure secondary to the above, resolved, at baseline. Chronic hypoxic and hypercapnic respiratory failure, on normally wears 6 L nasal cannula O2 at home Left adrenal mass , large, increased from exam 5 years ago. Further follow-up outpatient with endocrinology. CAD, history of [place] COPD Hypertension Hyperlipidemia Morbid obesity, BMI 33.3 Plan: Continue on current medication regime ,monitoring and symptomatic treatment. Gentle IV fluid hydration , diuretics decreased . Close monitoring of renal function with repeat labs ordered for a.m. discharge planning in progress tentatively for tomorrow pending improvement in renal function and clearance per cardiology. The impression and plan of care has been dictated as directed. : I performed a history and examination of this patient, discussed the same with the dictator. I agree with the dictator's note ,documented as a scribe. Any ad ditional findings or plans will be noted.
[2022-03-26 16:42] LABS: Glucose,Whole Blood 126 mg/dL (70-110)
[2022-03-26] MEDS: ATORVASTATIN 40 MG TAB PO SCH (19:41)
[2022-03-26 20:04] LABS: Glucose,Whole Blood 163 mg/dL (70-110)
[2022-03-27] MEDS: SODIUM CHLORIDE 0.9% 1,000 ML in EMPTY BAG 1 BAG IV SCH ×3 (02:36→19:14)
[2022-03-27 06:17] LABS: Glucose,Whole Blood 104 mg/dL (70-110)
[2022-03-27] MEDS: LEVOTHYROXINE 25 MCG TAB PO SCH (06:24)
[2022-03-27] MEDS: PANTOPRAZOLE 40 MG TABLET PO SCH (06:24)
[2022-03-27] MEDS: METOPROLOL SUCCINATE (ER) 25 MG TAB.ER.24H PO SCH (08:35)
[2022-03-27] MEDS: AMIODARONE 200 MG TAB PO SCH (08:35)
[2022-03-27] MEDS: SPIRONOLACTONE 25 MG TAB PO SCH (08:35)
[2022-03-27] MEDS: FUROSEMIDE 20 MG TAB PO SCH (08:35)
[2022-03-27] MEDS: APIXABAN 5 MG TAB PO SCH ×2 (08:35→19:18)
[2022-03-27] MEDS: SACUBITRIL/VALSARTAN 24 MG-26 MG TABLET PO SCH ×2 (08:35→19:18)
[2022-03-27] MEDS: SERTRALINE 100 MG TAB PO SCH (08:35)
[2022-03-27] MEDS: SODIUM CHLORIDE 0.9% 1,000 ML IV SCH (10:35)
--- NOTE | 2022-03-27 11:00 | P.PN ---
Subjective From the records: This pleasant 71-year-old morbidly obese female presented to the ER with complaints of feeling panicky, shortness of breath without chest pain, diaphoresis or syncope. Reports bilateral lower extremity edema times nearly 1 week. Denies nausea vomiting or diarrhea. Denies abdominal pain. Denies lightheadedness dizziness or focal deficits. Normally wears 6 L of nasal cannula O2 at home, O2 sat rate 54% and daughter increased to 8 L prior to EMS arrival.EKG reporting atrial fibrillation with RVR Chest CT reported no evidence of PE, bilateral pleural effusions, some basilar pulmonary infiltrates and atelectasis increased, large left adrenal mass increased from exam 5 years ago. Chest x-ray reporting some CHF with increased pleural fluid. Afebrile, normal WBC, hemoglobin 9.5, platelets 170, INR 1.1, sodium 137, potassium 3.5, bicarb 32, BUN 15, creatinine 0.72. Troponin 0.024, 0.053, 0.047. Currently maintained on heparin and amiodarone drips. Telemetry sinus rhythm. 03/27/2022 Is a pleasant 71 years old female presents with new onset atrial fibrillation and acute congestive heart failure, nonischemic as she had unremarkable cardiac cath on 03/24 showing no evidence of obstructive coronary artery disease She is currently on full liquids and amiodarone 200 mg also she is on small dose of Lasix and metoprolol She's lying in bed feeling weak little distress but denies chest pain or coughing. Repeat chest x-ray showing CHF. Her echocardiogram showed ejection fraction of 20-25% Objective - Vital Signs Vital signs: Vital Signs Temp 97.8 F 03/27/22 08:03 Pulse 59 L 03/27/22 08:03 Resp 16 03/27/22 04:00 BP 121/55 03/27/22 08:03 Pulse Ox 94 L 03/27/22 08:33 FiO2 Intake & Output 03/26/22 03/27/22 03/27/22 18:59 06:59 18:59 Intake Total 118 Output Total 200 750 Balance -200 -750 118 Weight 108 kg Intake: Oral 118 Output: Urine 200 750 Other: Voiding Method External Catheter External Catheter # Bowel Movements 1 - Exam GENERAL: The patient is alert and oriented x3, not in any acute distress. Well developed, well nourished. HEENT: Pupils are round and equally reacting to light. EOMI. No scleral icterus. No conjunctival pallor. Normocephalic, atraumatic. No pharyngeal erythema. No thyromegaly. CARDIOVASCULAR: S1 and S2 present. No murmurs, rubs, or gallops. PULMONARY: Chest is clear to auscultation, no wheezing or crackles. ABDOMEN: Soft, nontender, nondistended, normoactive bowel sounds. No palpable organomegaly. MUSCULOSKELETAL: No joint swelling or deformity. EXTREMITIES: No cyanosis, clubbing, or pedal edema. NEUROLOGICAL: Gross neurological examination did not reveal any focal deficits. SKIN: No rashes. no petechiae. - Labs CBC & Chem 7: 03/22/22 05:11 03/26/22 08:52 Labs: Abnormal Lab Results - Last 24 Hours (Table) 03/26/22 03/26/22 Range/Units 16:40 20:02 POC Glucose (mg/dL) 126 H 163 H (70-110) mg/dL Microbiology - Last 24 Hours (Table) 03/22/22 00:21 Blood Culture - Preliminary Blood No Growth after 120 hours Assessment and Plan Assessment: New-onset atrial fibrillation with RVR, status post successful cardioversion Acute on chronic CHF, ejection fraction 20-25%, nonischemic cardiomyopathy Acute renal insufficiency, contrast-induced. Acute on chronic respiratory failure secondary to the above, resolved, at baseline. Acute kidney disease Chronic hypoxic and hypercapnic respiratory failure, on normally wears 6 L nasal cannula O2 at home Left adrenal mass , large, increased from exam 5 years ago. Further follow-up outpatient with endocrinology. CAD, history of [place] COPD: No acute exacerbation Hypertension Hyperlipidemia Morbid obesity, BMI 33.3 Plan: This is a pleasant 71 years old female with new onset A. fib and developed up off nonischemic CHF. She is awake and alert does not look in respiratory distress however she still have some tachypnea and occasional coughing. No chest pain. No other complaints regarding headache weakness or numbness or urgency or increased frequency of urination or fall. Heart heart rate is currently controlled and actually she is more bradycardic roentgen 49-59. She is on liquids and metoprolol 25 mg. Also she is on amiodarone 200 mg twice daily with senior packaging engineer team of the case. Currently she is A Small Dose of Oral Lasix 20 Mg Patient has left renal mass and primary team are planning to do further workup as an outpatient Yesterday her creatinine went up to 1.5. today, we are going to order her creatinine PT/OT recommended home health care versus rehab, patient was rehab and she wants to go home upon discharge. Patient is very weak and heavy to move however she was sitting in the chair all the day yesterday
[2022-03-27 11:26] LABS: Calcium 8.6 mg/dL (8.4-10.2)
[2022-03-27 11:36] LABS: Glucose,Whole Blood 153 mg/dL (70-110)
--- NOTE | 2022-03-27 12:13 | P.PN ---
Subjective Progress Note Date: 03/27/22 PROGRESS NOTE The patient is a 74-year-old female who presented with progressive dyspnea and was found to have severe cardiomyopathy, she was in atrial fibrillation with rapid ventricular response. She underwent cardiac catheterization yesterday and had no evidence of significant obstructive disease. She's feeling better today. Her breathing is better. She denies any chest discomfort, dizziness or p alpitations. She continues to be on Lipitor 40 mg daily, Lasix 20 g twice a day, levothyroxine, protonic's, metoprolol 25 mg 3 times a day, amiodarone 400 mg twice a day, Aldactone 25 mg daily and Entresto 2426 milligrams twice a day in addition to Eliquis 5 mg twice a day. she continues to be in atrial fibrillation with rapid ventricular response March 26, The patient is feeling better, her breathing is stable, she continues to be in sinus mechanism. She denies any chest discomfort, dizziness or palpitations. She underwent cardioversion yesterday with mosque of sinus mechanism. She is hemodynamically stable. She continues to have peripheral edema. March 27: The patient continues to feel better, her breathing is better. Her energy is better. She denies any chest discomfort, dizziness or palpitations. She denies any nausea. She is ambulating to the bathroom. She continues to be on amiodarone 200 mg twice a day, furosemide 20 mg once a day, metoprolol succinate 25 mg daily, Aldactone 25 mg daily,Entresto 2426 milligrams twice a day,Eliquis 5 mg twice a day, Lipitor 40 mg daily PHYSICAL EXAMINATION: Blood pressure 121/50 heart rate 50 LUNGS: Clear to auscultation HEART: Regular rate and rhythm, S1, S2. No S3. systolic murmur at the base ABDOMEN: Soft, nontender, no organomegaly EXTREMETIES: +1 edema LAB: Potassium 4.0, BUN 30, creatinine 1.39 IMPRESSION: 1. Atrial fibrillation with rapid ventricle response, post cardioversion, back in sinus mechanism 2. CHF with reduced systolic function, nonischemic cardiomyopathy 3. Hypertension 4. Hyperlipidemia 5. Elevated BUN and creatinine, improving 6. Sinus bradycardia PLAN: 1. Decrease amiodarone 2. Increase physical activity 3. If stable probable discharge home soon 4. Follow renal functions Objective - Vital Signs Vital signs: Vital Signs Temp 97.8 F 03/27/22 08:03 Pulse 49 L 03/27/22 08:35 Resp 16 03/27/22 04:00 BP 121/55 03/27/22 08:03 Pulse Ox 94 L 03/27/22 08:33 FiO2 Intake & Output 03/26/22 03/27/22 03/27/22 18:59 06:59 18:59 Intake Total 118 Output Total 200 750 Balance -200 -750 118 Weight 108 kg Intake: Oral 118 Output: Urine 200 750 Other: Voiding Method External Catheter External Catheter External Catheter # Bowel Movements 1 - Labs CBC & Chem 7: 03/22/22 05:11 03/27/22 08:51 Labs: Abnormal Lab Results - Last 24 Hours (Table) 03/26/22 03/26/22 03/27/22 Range/Units 16:40 20:02 08:51 Sodium 135 L (137-145) mmol/L Chloride 97 L (98-107) mmol/L BUN 30 H (7-17) mg/dL Creatinine 1.39 H (0.52-1.04) mg/dL Glucose 114 H (74-99) mg/dL POC Glucose (mg/dL) 126 H 163 H (70-110) mg/dL 03/27/22 Range/Units 11:35 Sodium (137-145) mmol/L Chloride (98-107) mmol/L BUN (7-17) mg/dL Creatinine (0.52-1.04) mg/dL Glucose (74-99) mg/dL POC Glucose (mg/dL) 153 H (70-110) mg/dL Microbiology - Last 24 Hours (Table) 03/22/22 00:21 Blood Culture - Preliminary Blood No Growth after 120 hours
[2022-03-27 16:46] LABS: Glucose,Whole Blood 128 mg/dL (70-110)
[2022-03-27] MEDS: ATORVASTATIN 40 MG TAB PO SCH (19:18)
[2022-03-27 20:15] LABS: Glucose,Whole Blood 141 mg/dL (70-110)
[2022-03-28] MEDS: LEVOTHYROXINE 25 MCG TAB PO SCH (06:05)
[2022-03-28] MEDS: PANTOPRAZOLE 40 MG TABLET PO SCH (06:05)
[2022-03-28] MEDS: SODIUM CHLORIDE 0.9% 1,000 ML in EMPTY BAG 1 BAG IV SCH ×2 (06:05→17:00)
[2022-03-28 06:10] LABS: Glucose,Whole Blood 93 mg/dL (70-110)
[2022-03-28 07:25] LABS: Anisocytosis Slight; Basophils % (A) 0 %; Eosinophils # (A) 0.1 k/uL (0-0.7); Eosinophils % (A) 1 %; HCT 33.3 % (34.0-46.0); HGB 9.7 gm/dL (11.4-16.0); Hypochromasia Marked; Lymphocytes # (A) 1.2 k/uL (1.0-4.8); Lymphocytes % (A) 17 %; MCH 25.1 pg (25.0-35.0); MCHC 29.1 g/dL (31.0-37.0); MCV 86.4 fL (80.0-100.0); Mean Platelet Volume 11.1; Monocytes # (A) 0.4 k/uL (0-1.0); Monocytes % (A) 6 %; Neutrophils # (A) 5.3 k/uL (1.3-7.7); Neutrophils % (A) 74 %; Platelet Count 170 k/uL (150-450); RBC 3.86 m/uL (3.80-5.40); RDW 17.1 % (11.5-15.5); WBC 7.2 k/uL (3.8-10.6)
--- NOTE | 2022-03-28 07:42 | XR ---
EXAMINATION TYPE: XR chest 1V portable DATE OF EXAM: 03/28/2022 HISTORY: Shortness of breath. COMPARISON: 03/21/2022 TECHNIQUE: Single view of the chest is submitted. FINDINGS: Demonstrated are scattered senescent parenchymal change. Persistent but slightly improved cardiomegaly with improved pulmonary venous congestion scattered int erstitial edema. Small residual left-sided effusion noted. Hilar and mediastinal structures are within normal limits. Degenerative changes are seen of the dorsal spine. IMPRESSION: 1. Improving features of interstitial edema.
[2022-03-28] MEDS: METOPROLOL SUCCINATE (ER) 25 MG TAB.ER.24H PO SCH (08:51)
[2022-03-28] MEDS: SACUBITRIL/VALSARTAN 24 MG-26 MG TABLET PO SCH ×2 (08:51→21:06)
[2022-03-28] MEDS: FUROSEMIDE 20 MG TAB PO SCH (08:51)
[2022-03-28] MEDS: SPIRONOLACTONE 25 MG TAB PO SCH (08:51)
[2022-03-28] MEDS: APIXABAN 5 MG TAB PO SCH ×2 (08:51→21:06)
[2022-03-28] MEDS: AMIODARONE 200 MG TAB PO SCH (08:51)
[2022-03-28] MEDS: SERTRALINE 100 MG TAB PO SCH (08:51)
[2022-03-28 09:01] LABS: Calcium 8.8 mg/dL (8.4-10.2); Magnesium 1.5 mg/dL (1.6-2.3); Potassium 3.8 mmol/L (3.5-5.1)
--- NOTE | 2022-03-28 11:22 | P.PN ---
Subjective Progress Note Date: 03/28/22 PROGRESS NOTE The patient is a 74-year-old female who presented with progressive dyspnea and was found to have severe cardiomyopathy, she was in atrial fibrillation with rapid ventricular response. She underwent cardiac catheterization yesterday and had no evidence of significant obstructive disease. She's feeling better today. Her breathing is better. She denies any chest discomfort, dizziness or p alpitations. She continues to be on Lipitor 40 mg daily, Lasix 20 g twice a day, levothyroxine, protonic's, metoprolol 25 mg 3 times a day, amiodarone 400 mg twice a day, Aldactone 25 mg daily and Entresto 2426 milligrams twice a day in addition to Eliquis 5 mg twice a day. she continues to be in atrial fibrillation with rapid ventricular response March 26, The patient is feeling better, her breathing is stable, she continues to be in sinus mechanism. She denies any chest discomfort, dizziness or palpitations. She underwent cardioversion yesterday with anglican of sinus mechanism. She is hemodynamically stable. She continues to have peripheral edema. March 27: The patient continues to feel better, her breathing is better. Her energy is better. She denies any chest discomfort, dizziness or palpitations. She denies any nausea. She is ambulating to the bathroom. March 28: She's feeling well this morning, ambulating. She continues to be in sinus mechanism. She has no chest discomfort, dizziness or palpitations. She has no nausea or vomiting. She feels stronger. She continues to be on amiodarone 200 mg twice a day, furosemide 20 mg once a day, metoprolol succinate 25 mg daily, Aldactone 25 mg daily,Entresto 2426 milligrams twice a day,Eliquis 5 mg twice a day, Lipitor 40 mg daily PHYSICAL EXAMINATION: Blood pressure 103/50 heart rate 54 LUNGS: Clear to auscultation HEART: Regular rate and rhythm, S1, S2. No S3. systolic murmur at the base ABDOMEN: Soft, nontender, no organomegaly EXTREMETIES: +1 edema LAB: Potassium 3.8, BUN 25, creatinine 1.14 IMPRESSION: 1. Atrial fibrillation with rapid ventricle response, post cardioversion, back in sinus mechanism 2. CHF with reduced systolic function, nonischemic cardiomyopathy 3. Hypertension 4. Hyperlipidemia 5. Elevated BUN and creatinine, improving 6. Sinus bradycardia PLAN: 1. Continue present therapy 2. Increase physical activity 3. Probable discharge home soon and follow-up as an outpatient Objective - Vital Signs Vital signs: Vital Signs Temp 97.9 F 03/27/22 19:29 Pulse 54 L 03/28/22 04:00 Resp 16 03/28/22 04:00 BP 103/46 03/28/22 04:00 Pulse Ox 91 L 03/28/22 07:38 FiO2 Intake & Output 03/27/22 03/28/22 03/28/22 18:59 06:59 18:59 Intake Total 1274 605 603 Output Total 500 Balance 1274 605 103 Intake: Oral 1274 605 603 Output: Urine 500 Other: Voiding Method External Catheter External Catheter # Voids 1 - Labs CBC & Chem 7: 03/28/22 07:05 03/28/22 08:12 Labs: Abnormal Lab Results - Last 24 Hours (Table) 03/27/22 03/27/22 03/27/22 Range/Units 08:51 11:35 16:44 Hgb (11.4-16.0) gm/dL Hct (34.0-46.0) % MCHC (31.0-37.0) g/dL RDW (11.5-15.5) % Sodium 135 L (137-145) mmol/L Chloride 97 L (98-107) mmol/L Carbon Dioxide (22-30) mmol/L BUN 30 H (7-17) mg/dL Creatinine 1.39 H (0.52-1.04) mg/dL Glucose 114 H (74-99) mg/dL POC Glucose (mg/dL) 153 H 128 H (70-110) mg/dL Magnesium (1.6-2.3) mg/dL 03/27/22 03/28/22 03/28/22 Range/Units 20:14 07:05 08:12 Hgb 9.7 L (11.4-16.0) gm/dL Hct 33.3 L (34.0-46.0) % MCHC 29.1 L (31.0-37.0) g/dL RDW 17.1 H (11.5-15.5) % Sodium 136 L (137-145) mmol/L Chloride (98-107) mmol/L Carbon Dioxide 31 H (22-30) mmol/L BUN 25 H (7-17) mg/dL Creatinine 1.14 H (0.52-1.04) mg/dL Glucose 109 H (74-99) mg/dL POC Glucose (mg/dL) 141 H (70-110) mg/dL Magnesium 1.5 L (1.6-2.3) mg/dL Microbiology - Last 24 Hours (Table) 03/22/22 00:21 Blood Culture - Final Blood No Growth after 144 hours
[2022-03-28 11:45] LABS: Glucose,Whole Blood 106 mg/dL (70-110)
[2022-03-28] MEDS ORDERED: Magnesium Replacement Protocol 1 EACH MISC MISCELLANE PRN (16:29)
[2022-03-28] MEDS ORDERED: FUROSEMIDE 10 MG/ML 4 ML VIAL IV STA (16:31)
[2022-03-28 16:34] LABS: Glucose,Whole Blood 108 mg/dL (70-110)
--- NOTE | 2022-03-28 16:38 | P.PN ---
Subjective From the records: This pleasant 71-year-old morbidly obese female presented to the ER with complaints of feeling panicky, shortness of breath without chest pain, diaphoresis or syncope. Reports bilateral lower extremity edema times nearly 1 week. Denies nausea vomiting or diarrhea. Denies abdominal pain. Denies lightheadedness dizziness or focal deficits. Normally wears 6 L of nasal cannula O2 at home, O2 sat rate 54% and daughter increased to 8 L prior to EMS arrival.EKG reporting atrial fibrillation with RVR Chest CT reported no evidence of PE, bilateral pleural effusions, some basilar pulmonary infiltrates and atelectasis increased, large left adrenal mass increased from exam 5 years ago. Chest x-ray reporting some CHF with increased pleural fluid. Afebrile, normal WBC, hemoglobin 9.5, platelets 170, INR 1.1, sodium 137, potassium 3.5, bicarb 32, BUN 15, creatinine 0.72. Troponin 0.024, 0.053, 0.047. Currently maintained on heparin and amiodarone drips. Telemetry sinus rhythm. 03/27/2022 Is a pleasant 71 years old female presents with new onset atrial fibrillation and acute congestive heart failure, nonischemic as she had unremarkable cardiac cath on 03/24 showing no evidence of obstructive coronary artery disease She is currently on full liquids and amiodarone 200 mg also she is on small dose of Lasix and metoprolol She's lying in bed feeling weak little distress but denies chest pain or coughing. Repeat chest x-ray showing CHF. Her echocardiogram showed ejection fraction of 20-25% 03/28/2022 Patient sitting improvement in her dyspnea, and a breathing is better but she still short of breath and tachypneic when she tried to talk. She still at 6 L of oxygen which is her home dose. Also she has bilateral leg swelling. Subacute rehab was recommended for her however patient declines and wants to go home, then patient can go home with home healthcare. Therefore patient will need more help with mobility and we'll give her one extra doses of IV Lasix 40 mg today. Her urine output over the last 24 hours was only 300 mL negative. Also patient about her left adrenal mass, risk of cancer is explained for the patient as well as the importance of follow-up and she verbalized understanding and acceptance. Primary team of doctors about already know about it and a known to continue workup as an outpatient. Patient remains on liquids. Objective - Vital Signs Vital signs: Vital Signs Temp 97.9 F 03/27/22 19:29 Pulse 54 L 03/28/22 04:00 Resp 16 03/28/22 04:00 BP 103/46 03/28/22 04:00 Pulse Ox 91 L 03/28/22 07:38 FiO2 Intake & Output 03/27/22 03/28/22 03/28/22 18:59 06:59 18:59 Intake Total 1274 605 603 Output Total 500 Balance 1274 605 103 Intake: Oral 1274 605 603 Output: Urine 500 Other: Voiding Method External Catheter External Catheter # Voids 1 - Exam GENERAL: The patient is alert and oriented x3, not in any acute distress. Well developed, well nourished. HEENT: Pupils are round and equally reacting to light. EOMI. No scleral icterus. No conjunctival pallor. Normocephalic, atraumatic. No pharyngeal erythema. No thyromegaly. CARDIOVASCULAR: S1 and S2 present. No murmurs, rubs, or gallops. PULMONARY: Chest is clear to auscultation, no wheezing or crackles. ABDOMEN: Soft, nontender, nondistended, normoactive bowel sounds. No palpable organomegaly. MUSCULOSKELETAL: No joint swelling or deformity. EXTREMITIES: No cyanosis, clubbing, or pedal edema. NEUROLOGICAL: Gross neurological examination did not reveal any focal deficits. SKIN: No rashes. no petechiae. - Labs CBC & Chem 7: 03/28/22 07:05 03/28/22 08:12 Labs: Abnormal Lab Results - Last 24 Hours (Table) 03/27/22 03/27/22 03/27/22 Range/Units 08:51 11:35 16:44 Hgb (11.4-16.0) gm/dL Hct (34.0-46.0) % MCHC (31.0-37.0) g/dL RDW (11.5-15.5) % Sodium 135 L (137-145) mmol/L Chloride 97 L (98-107) mmol/L Carbon Dioxide (22-30) mmol/L BUN 30 H (7-17) mg/dL Creatinine 1.39 H (0.52-1.04) mg/dL Glucose 114 H (74-99) mg/dL POC Glucose (mg/dL) 153 H 128 H (70-110) mg/dL Magnesium (1.6-2.3) mg/dL 03/27/22 03/28/22 03/28/22 Range/Units 20:14 07:05 08:12 Hgb 9.7 L (11.4-16.0) gm/dL Hct 33.3 L (34.0-46.0) % MCHC 29.1 L (31.0-37.0) g/dL RDW 17.1 H (11.5-15.5) % Sodium 136 L (137-145) mmol/L Chloride (98-107) mmol/L Carbon Dioxide 31 H (22-30) mmol/L BUN 25 H (7-17) mg/dL Creatinine 1.14 H (0.52-1.04) mg/dL Glucose 109 H (74-99) mg/dL POC Glucose (mg/dL) 141 H (70-110) mg/dL Magnesium 1.5 L (1.6-2.3) mg/dL Microbiology - Last 24 Hours (Table) 03/22/22 00:21 Blood Culture - Final Blood No Growth after 144 hours Assessment and Plan Assessment: New-onset atrial fibrillation with RVR, status post successful cardioversion Acute on chronic CHF, ejection fraction 20-25%, nonischemic cardiomyopathy Acute renal insufficiency, contrast-induced As well as cardiorenal syndrome, improving Acute on chronic respiratory failure secondary to the above, resolved, at baseline. Chronic hypoxic and hypercapnic respiratory failure, on normally wears 6 L nasal cannula O2 at home Left adrenal mass , large, increased from exam 5 years ago. Further follow-up outpatient with endocrinology. CAD, history of [place] COPD: No acute exacerbation Hypertension Hyperlipidemia Morbid obesity, BMI 33.3 Plan: This is a pleasant 71 years old female with new onset A. fib and developed up off nonischemic CHF. She is awake and alert does not look in respiratory distr ess however she still have some tachypnea and occasional coughing. No chest pain. No other complaints regarding headache weakness or numbness or urgency or increased frequency of urination or fall. Heart heart rate is currently controlled and actually she is more bradycardic roentgen 49-59. She is on liquids and metoprolol 25 mg. Also she is on amiodarone 200 mg twice daily with home health care case manager team of the case. Continue 1 extra dose of IV Lasix Monitor input and output and creatinine. Patient has left renal mass and primary team are planning to do further workup as an outpatient Patient declined rehab and wants to go home PT/OT recommended home health care versus rehab, patient was rehab and she wants to go home upon discharge.
[2022-03-28] MEDS: SODIUM CHLORIDE 0.9% 1,000 ML IV SCH (17:03)
[2022-03-28 20:15] LABS: Glucose,Whole Blood 130 mg/dL (70-110)
[2022-03-28] MEDS: ATORVASTATIN 40 MG TAB PO SCH (21:06)
[2022-03-29] MEDS: SODIUM CHLORIDE 0.9% 1,000 ML in EMPTY BAG 1 BAG IV SCH ×3 (01:40→22:22)
[2022-03-29 06:06] LABS: Glucose,Whole Blood 90 mg/dL (70-110)
[2022-03-29] MEDS: PANTOPRAZOLE 40 MG TABLET PO SCH (06:46)
[2022-03-29] MEDS: LEVOTHYROXINE 25 MCG TAB PO SCH (06:46)
[2022-03-29 07:06] LABS: Magnesium 1.4 mg/dL (1.6-2.3); Potassium 3.7 mmol/L (3.5-5.1)
[2022-03-29] MEDS ORDERED: Magnesium Replacement Protocol 1 EACH MISC MISCELLANE PRN (08:09)
[2022-03-29] MEDS: SACUBITRIL/VALSARTAN 24 MG-26 MG TABLET PO SCH ×2 (08:20→22:38)
[2022-03-29] MEDS: MAGNESIUM SULFATE-D5W PMX 1 GM in DEXTROSE/WATER 1 100ML.BAG IVPB SCH ×2 (08:20→16:18)
[2022-03-29] MEDS: AMIODARONE 200 MG TAB PO SCH (08:20)
[2022-03-29] MEDS: SERTRALINE 100 MG TAB PO SCH (08:20)
[2022-03-29] MEDS: APIXABAN 5 MG TAB PO SCH ×2 (08:20→22:21)
[2022-03-29] MEDS: SPIRONOLACTONE 25 MG TAB PO SCH (08:20)
[2022-03-29] MEDS: FUROSEMIDE 20 MG TAB PO SCH (08:21)
[2022-03-29] MEDS: METOPROLOL SUCCINATE (ER) 25 MG TAB.ER.24H PO SCH (08:21)
[2022-03-29 11:45] LABS: Glucose,Whole Blood 116 mg/dL (70-110)
--- NOTE | 2022-03-29 11:48 | P.PN ---
Subjective The patient is a 74-year-old female past medical history significant for hypertension, hyperlipidemia, hypothyroidism, COPD with home oxygen, and con gestive heart failure. Patient does not follow with a assembler adjuster. She presented with progressive dyspnea and was found to have severe cardiomyopathy with EF 20-25%, she was in atrial fibrillation with rapid ventricular response. She underwent cardiac catheterization on 03/24/2022 and had no evidence of significant obstructive disease. She underwent CHINO cardioversion on 03/25/2022 with amish of sinus mechanism. She is hemodynamically stable. She continues to maintain sinus rhythm, HR 50s. Denies any chest pain or shortness of breath. She is feeling better. She denies any chest discomfort, dizziness or palpitations. She denies any nausea. She is ambulating to the bathroom. She continues to be on amiodarone 200 mg daily, furosemide 20 mg once a day, metoprolol succinate 25 mg daily, Aldactone 25 mg daily,Entresto 2426 milligrams twice a day,Eliquis 5 mg twice a day, Lipitor 40 mg daily BP 102/57 HR 59, afebrile 94% on 6L nasal cannula GENERAL: Well-appearing, well-nourished and in no acute distress. NECK: Supple without JVD LUNGS: Breath sounds clear to auscultation bilaterally. Respiration equal and unlabored. No wheezes, rales or rhonchi. HEART: Regular rate and rhythm without murmurs, rubs or gallops. S1 and S2 heard. EXTREMITIES: Normal range of motion, no edema. No clubbing or cyanosis. Peripheral pulses intact. ASSESSMENT 1. Paroxysmal Atrial fibrillation with rapid ventricle response, post cardioversion, back in sinus mechanism 2. Acute congestive heart failure with reduced systolic function, nonischemic cardiomyopathy EF 20-25% 3. Hypertension 4. Hyperlipidemia 5. Elevated BUN and creatinine, improving 6. Sinus bradycardia PLAN Continue present medical therapy Increase activity as tolerated No further changes from a cardiology perspective at this time. On discharge follow up outpatient with Dr. Marquez Likely discharge MARYAN tomorrow if remains stable. Nurse Practitioner note has been reviewed, I agree with a documented findings and plan of care. Patient was seen and examined. Objective - Vital Signs Vital signs: Vital Signs Temp 98.2 F 03/29/22 05:00 Pulse 59 L 03/29/22 05:00 Resp 17 03/29/22 05:00 BP 102/57 03/29/22 05:00 Pulse Ox 94 L 03/29/22 05:00 FiO2 Intake & Output 03/28/22 03/29/22 03/29/22 18:59 06:59 18:59 Intake Total 839 540 118 Output Total 1775 1400 600 Balance -936 -860 -482 Intake: Oral 839 540 118 Output: Urine 1775 1400 600 Other: Voiding Method External Catheter External Catheter # Bowel Movements 1 - Labs CBC & Chem 7: 03/28/22 07:05 03/29/22 06:37 Labs: Abnormal Lab Results - Last 24 Hours (Table) 03/28/22 03/29/22 Range/Units 20:14 06:37 POC Glucose (mg/dL) 130 H (70-110) mg/dL Magnesium 1.4 L (1.6-2.3) mg/dL
--- NOTE | 2022-03-29 12:51 | P.DS ---
Providers Date of admission: 03/21/22 19:48 Expected date of discharge: 03/29/22 Attending physician: Cosme Pena MD Consults: 03/21/22 19:48 Consult Physician Urgent Consulting Provider: Prabhu Marquez Consult Reason/Comments: New onset atrial fibrillation, CHF Do you want consulting provider notified?: Yes Primary care physician: Skye Guardado Hospital Course: Final Diagnoses: New-onset paroximal atrial fibrillation with RVR, status post successful cardioversion Acute CHF, reduced systolic dysfunction, EF 20-25% New-onset nonischemic cardiomyopathy, Acute renal insufficiency, contrast-induced. Acute respiratory failure secondary to the above, resolved, at baseline. Chronic hypoxic and hypercapnic respiratory failure, on normally wears 6 L nasal cannula O2 at home Left adrenal mass , large, increased from exam 5 years ago. Further follow-up outpatient with endocrinology. CAD, history of [place] COPD Hypertension Hyperlipidemia Morbid obesity, BMI 33.3 Hospital course:This pleasant 71-year-old morbidly obese female presented to the ER with complaints of feeling panicky, shortness of breath without chest pain, diaphoresis or syncope. Reports bilateral lower extremity edema times nearly 1 week. Denies nausea vomiting or diarrhea. Denies abdominal pain. Denies lightheadedness dizziness or focal deficits. Normally wears 6 L of nasal cannula O2 at home, O2 sat rate 54% and daughter increased to 8 L prior to EMS arrival.EKG reporting atrial fibrillation with RVR Chest CT reported no evidence of PE, bilateral pleural effusions, some basilar pulmonary infiltrates and atelectasis increased, large left adrenal mass increased from exam 5 years ago. Chest x-ray reporting some CHF with increased pleural fluid. Afebrile, normal WBC, hemoglobin 9.5, platelets 170, INR 1.1, sodium 137, potassium 3.5, bicarb 32, BUN 15, creatinine 0.72. Troponin 0.024, 0.053, 0.047. Currently maintained on heparin and amiodarone drips. Telemetry sinus rhythm. 03/23/2022 diuresing well, decreasing edema. Reports breathing easier. Maintaining O2 sats in the high 90s on 6 L nasal cannula. Maintained on amiodarone drip, heart rate currently in the 120s, appears sinus. Blood pressure soft. Echocardiogram completed yesterday reported technically suboptimal study with severe LV systolic dysfunction, EF estimated at 20-25%, small pericardial effusion. Denies chest pain, palpitations. 03/24/22 nothing by mouth, awaiting cardiac catheterization. Renal function stable. If no evidence of CAD, CHINO/cardioversion being discussed. Denies chest pain, palpitations or increased shortness of breath. Maintaining O2 sats in the mid to high 90s on 6 L nasal cannula. Heart rates 1 teens to 120s. Potassium 3.5. 03/26/2022 underwent cardiac cath reporting no evidence of destructive CAD, moderately impaired systolic function, cardiology reporting EF 35-40%, [id number] tricuspid regurgitation. yesterday proceeded with successful CHINO cardioversion. Converted to sinus bradycardia. Reports breathing easier, denies chest pain, palpitations or increased shortness of breath. Postcontrast, creatinine mildly increased to 1.52. Blood pressure soft. Continues on amiodarone, Entresto as per cardiology, echo reported EF of 20-25%. Significant clinical improvement. Denies chest pain, palpitations or shortness of breath. Maintaining O2 sats in the 90s on 6 L nasal cannula, baseline. Cleared by cardiology for discharge. Patient will be discharged home today in a stable condition with guarded prognosis. PT/OT recommended home care versus rehab, patient wishes to be discharged home. The impression and plan of care has been dictated as directed. : I performed a history and examination of this patient, discussed the same with the dictator. I agree with the dictator's note ,documented as a scribe. Any additional findings or plans will be noted. Patient Condition at Discharge: Stable Plan - Discharge Summary Discharge Rx Participant: No New Discharge Prescriptions: New Apixaban [Eliquis] 5 mg PO BID #60 tab Ipratropium-Albuterol Nebulize [Duoneb 0.5 mg-3 mg/3 ml Soln] 3 ml INHALATION RT-QID PRN #120 each PRN Reason: Shortness Of Breath Or Wheezing Sacubitril/Valsartan [Entresto 24 mg-26 mg Tablet] 1 each PO BID #60 tab Nitroglycerin Sl Tabs [Nitrostat] 0.4 mg SUBLINGUAL Q5M PRN #100 tab PRN Reason: Chest Pain Amiodarone [Cordarone] 200 mg PO DAILY #30 tab Spironolactone [Aldactone] 25 mg PO DAILY #90 tab Furosemide [Lasix] 20 mg PO DAILY #90 tab Metoprolol Succinate (ER) [Toprol XL] 25 mg PO DAILY #90 tab Continue Multivitamins, Thera [Multivitamin (formulary)] 1 tab PO DAILY Potassium Chloride [Potassium Chloride ER] 10 meq PO DAILY Sertraline [Zoloft] 100 mg PO DAILY [place]-3/Dha/Epa/Fish Oil [Fish Oil 500 mg Softgel] 1 cap PO DAILY Levothyroxine Sodium [Synthroid] 25 mcg PO DAILY Atorvastatin Calcium [Lipitor] 40 mg PO HS Discontinued Aspirin 81 mg PO DAILY chew Naproxen Sodium [Aleve] 220 mg PO BID PRN PRN Reason: Pain lisinopriL [Zestril] 5 mg PO DAILY Furosemide [Lasix] 40 mg PO DAILY Discharge Medication List Multivitamins, Thera [Multivitamin (formulary)] 1 tab PO DAILY 12/28/17 [History] [place]-3/Dha/Epa/Fish Oil [Fish Oil 500 mg Softgel] 1 cap PO DAILY 01/13/21 [History] Potassium Chloride [Potassium Chloride ER] 10 meq PO DAILY 01/13/21 [History] Atorvastatin Calcium [Lipitor] 40 mg PO HS 03/21/22 [History] Levothyroxine Sodium [Synthroid] 25 mcg PO DAILY 03/21/22 [History] Sertraline [Zoloft] 100 mg PO DAILY 03/21/22 [History] Apixaban [Eliquis] 5 mg PO BID #60 tab 03/22/22 [Rx] Ipratropium-Albuterol Nebulize [Duoneb 0.5 mg-3 mg/3 ml Soln] 3 ml INHALATION RT-QID PRN #120 each 03/24/22 [Rx] Furosemide [Lasix] 20 mg PO DAILY #90 tab 03/26/22 [Rx] Metoprolol Succinate (ER) [Toprol XL] 25 mg PO DAILY #90 tab 03/26/22 [Rx] Nitroglycerin Sl Tabs [Nitrostat] 0.4 mg SUBLINGUAL Q5M PRN #100 tab 03/26/22 [Rx] Sacubitril/Valsartan [Entresto 24 mg-26 mg Tablet] 1 each PO BID #60 tab 03/26/22 [Rx] Spironolactone [Aldactone] 25 mg PO DAILY #90 tab 03/26/22 [Rx] Amiodarone [Cordarone] 200 mg PO DAILY #30 tab 03/29/22 [Rx] Follow up Appointment(s)/Referral(s): Sara Craft MD [STAFF PHYSICIAN] - 1 Week ([facility] office will call you with appointment date and time.) Emerald Fajardo, GAYLA [Family Provider] - 04/02/22 2:45 pm (This appointment is in the [place] office: [address] [place] [address] Pena.) [facility] Visiting Nurse, [NON-STAFF] - 1-2 Days
[2022-03-29] MEDS: MAGNESIUM OXIDE 400 MG TAB PO SCH ×2 (13:59→22:21)
[2022-03-29] MEDS: SODIUM CHLORIDE 0.9% 1,000 ML IV SCH (16:18)
[2022-03-29 16:27] LABS: Glucose,Whole Blood 119 mg/dL (70-110)
[2022-03-29 19:49] LABS: Glucose,Whole Blood 150 mg/dL (70-110)
[2022-03-29] MEDS: ATORVASTATIN 40 MG TAB PO SCH (22:21)
[2022-03-30 05:51] LABS: Glucose,Whole Blood 83 mg/dL (70-110)
[2022-03-30] MEDS: PANTOPRAZOLE 40 MG TABLET PO SCH (06:55)
[2022-03-30] MEDS: LEVOTHYROXINE 25 MCG TAB PO SCH (06:55)
[2022-03-30] MEDS: SODIUM CHLORIDE 0.9% 1,000 ML in EMPTY BAG 1 BAG IV SCH (06:56)
[2022-03-30] MEDS: SACUBITRIL/VALSARTAN 24 MG-26 MG TABLET PO SCH (09:28)
[2022-03-30] MEDS: FUROSEMIDE 20 MG TAB PO SCH (09:28)
[2022-03-30] MEDS: MAGNESIUM OXIDE 400 MG TAB PO SCH (09:29)
[2022-03-30] MEDS: SPIRONOLACTONE 25 MG TAB PO SCH (09:29)
[2022-03-30] MEDS: METOPROLOL SUCCINATE (ER) 25 MG TAB.ER.24H PO SCH (09:29)
[2022-03-30] MEDS: AMIODARONE 200 MG TAB PO SCH (09:29)
[2022-03-30] MEDS: SERTRALINE 100 MG TAB PO SCH (09:29)
[2022-03-30] MEDS: APIXABAN 5 MG TAB PO SCH (09:29)
[2022-03-30 11:39] LABS: Calcium 8.4 mg/dL (8.4-10.2); Magnesium 1.4 mg/dL (1.6-2.3); Potassium 4.2 mmol/L (3.5-5.1)
[2022-03-30 11:44] LABS: Glucose,Whole Blood 94 mg/dL (70-110)
[2022-03-30] MEDS: ACETAMINOPHEN TAB 325 MG TAB PO PRN (11:44)
--- NOTE | 2022-03-30 12:00 | P.PN ---
Subjective The patient is a 74-year-old female past medical history significant for hypertension, hyperlipidemia, hypothyroidism, COPD with home oxygen, and con gestive heart failure. Patient does not follow with a bonderizer. She presented with progressive dyspnea and was found to have severe cardiomyopathy with EF 20-25%, she was in atrial fibrillation with rapid ventricular response. She underwent cardiac catheterization on 03/24/2022 and had no evidence of significant obstructive disease. She underwent CHINO cardioversion on 03/25/2022 with presybeterian of sinus mechanism. 03/30 She is hemodynamically stable. She continues to maintain sinus rhythm, HR 50s. Denies any chest pain or shortness of breath. She is feeling better. She denies any chest discomfort, dizziness or palpitations. She denies any nausea. She is ambulating to the bathroom without difficulty. She continues to be on amiodarone 200 mg daily, furosemide 20 mg once a day, metoprolol succinate 25 mg daily, Aldactone 25 mg daily,Entresto 2426mg twice a day,Eliquis 5 mg twice a day, Lipitor 40 mg daily BP 101/65, heart rate 60, afebrile, oxygen saturation 92% on 6L nasal cannula GENERAL: Well-appearing, well-nourished and in no acute distress. NECK: Supple without JVD LUNGS: Breath sounds clear to auscultation bilaterally. Respiration equal and unlabored. No wheezes, rales or rhonchi. HEART: Regular rate and rhythm without murmurs, rubs or gallops. S1 and S2 heard. EXTREMITIES: Normal range of motion, no edema. No clubbing or cyanosis. Peripheral pulses intact. ASSESSMENT 1. Paroxysmal Atrial fibrillation with rapid ventricle response, post cardioversion, back in sinus mechanism 2. Acute congestive heart failure with reduced systolic function, nonischemic cardiomyopathy EF 20-25% 3. Hypertension 4. Hyperlipidemia 5. Elevated BUN and creatinine, improving 6. Sinus bradycardia PLAN Continue present medical therapy Increase activity as tolerated No further changes from a cardiology perspective at this time. On discharge follow up outpatient with Dr. Marquez Patient is stable for discharge to [facility] from cardiology perspective. Nurse Practitioner note has been reviewed, I agree with a documented findings and plan of care. Patient was seen and examined. Objective - Vital Signs Vital signs: Vital Signs Temp 97.9 F 03/30/22 05:00 Pulse 60 03/30/22 05:00 Resp 19 03/30/22 05:00 BP 101/65 03/30/22 05:00 Pulse Ox 92 L 03/30/22 05:00 FiO2 Intake & Output 03/29/22 03/30/22 03/30/22 18:59 06:59 18:59 Intake Total 358 1080 Output Total 1800 1350 Balance -1442 -270 Weight 107.3 kg Intake: Oral 358 1080 Output: Urine 1800 1350 Other: Voiding Method External Catheter External Catheter - Labs CBC & Chem 7: 03/28/22 07:05 03/30/22 10:23 Labs: Abnormal Lab Results - Last 24 Hours (Table) 03/29/22 03/29/22 03/29/22 Range/Units 11:43 16:25 19:48 POC Glucose (mg/dL) 116 H 119 H 150 H (70-110) mg/dL
[2022-03-30 13:07] VITALS: RESP 14
[2022-03-30 13:08] VITALS: BP 100/48; PULSE 56; TEMP 98.2
--- NOTE | 2022-04-01 08:32 | CDI ---
Documentation Clarification Form Date: 04/01/22 From: Arminda Agee Admit Date: 03/21/2022 07:48:00 PM Patient Name: Ramila Victor Visit Number: [id number] Discharge Date: 03/30/2022 03:02:00 PM ATTENTION: The Clinical Documentation Specialists (CDI) and [facility] Coding Staff appreciate your assistance in clarifying documentation. Please respond to the clarification below the line at the bottom and electronically sign. The CDI & [facility] Coding staff will review the response and follow-up if needed. Please note: Queries are made part of the Legal Health Record. If you have any questions, please contact the author of this message via ITS. Dr. Cosme Pena, Acute renal insufficiency, contrast-induced is documented in your PNs starting on 03/26 thru to discharge summary. Based on this information and the findings below, is there an additional diagnosis that is clinically appropriate for this patient? Patient history/risk factors: PAF, acute on chronic systolic CHF, acute on chronic hypoxic/hypercapnia respiratory failure. COPD, pericardial effusion, non-ischemic cardiomyopathy Clinical Indicators: Cr 1.52 (03/26), 1.39 (03/27), 1.14 (03/28) CT chest angio w contrast performed on 03/21 and heart catheterization done on 03/24 Treatment: gentle IV fluid hydration, diuretics decreased, close monitoring of renal function Is there an additional diagnosis that is clinically appropriate for this patient? [ ] Acute renal failure, contrast induced [ ] Acute renal failure with tubular necrosis [ ] Other, please specify [ ] Unable to determine Acute renal failure with tubular necrosis MTDD
--- NOTE | 2022-04-01 08:52 | CDI ---
Documentation Clarification Form Date: 04/01/22 From: Arminda Agee Admit Date: 03/21/2022 07:48:00 PM Patient Name: Ramila Victor Visit Number: [id number] Discharge Date: 03/30/2022 03:02:00 PM ATTENTION: The Clinical Documentation Specialists (CDI) and [facility] Coding Staff appreciate your assistance in clarifying documentation. Please respond to the clarification below the line at the bottom and electronically sign. The CDI & [facility] Coding staff will review the response and follow-up if needed. Please note: Queries are made part of the Legal Health Record. If you have any questions, please contact the author of this message via ITS. Dr. Cosme Pena, Unspecified CKD is documented [in the 03/28 PN "acute renal insufficiency, contrast-induced as well as cardiorenal syndrome". Additional clarification regarding the stage of CKD is requested. History/Risk Factors: HTN, PAF, acute on chronic systolic CHF, acute on chronic hypoxic/hypercapnia respiratory failure. COPD, pericardial effusion, non- ischemic cardiomyopathy Patients Historical BUN/CR/GFR- none available Clinical Indicators: Current BUN: 19 (03/21), 25 (03/26), 30 (03/27), 25 (03/28) Current CR: .70 (03/21)1.52 (03/26), 1.39 (03/27), 1.14 (03/28) Current GFR: 86 (03/21), 34 (03/26), 38 (03/27), 48 (03/28) Please clarify the stage of the CKD, if known: [ ] CKD Stage 1 (GFR > 90) [ ] CKD Stage 2 (GFR 60-89) [ ] CKD Stage 3 (GFR 30-59) [ ] CKD Stage 3a (GFR 45-59) [ ] CKD Stage 3b (GFR 30-44) [ ] CKD Stage 4 (GFR 15-29) [ ] CKD Stage 5 (GFR <15) [ ] ESRD [ ] Other, please specify [ ] Unable to determine CKD Stage 3 (GFR 30-59) [facility]
== END 2022-03-30 15:02 | DRG 286 ==
LOC: EC 15:54 → 3SCARD 19:48
PROVIDERS: ADMIT Family Medicine; ATTEND Family Medicine
PROC: 4A023N7 Measurement of Cardiac Sampling and Pressure, Left Heart, Percutaneous Approach (ICD-10-PCS; principal; 2022-03-24 10:30)
PROC: B2111ZZ Fluoroscopy of Multiple Coronary Arteries using Low Osmolar Contrast (ICD-10-PCS; principal; 2022-03-24 10:30)
PROC: B24BZZ4 Ultrasonography of Heart with Aorta, Transesophageal (ICD-10-PCS; 2022-03-25)
PROC: 5A2204Z Restoration of Cardiac Rhythm, Single (ICD-10-PCS; 2022-03-25)
DX: I48.0 Paroxysmal atrial fibrillation (principal); I50.23 Acute on chronic systolic (congestive) heart failure; J96.21 Acute and chronic respiratory failure with hypoxia; N17.0 Acute kidney failure with tubular necrosis; J96.22 Acute and chronic respiratory failure with hypercapnia; I31.3 Pericardial effusion (noninflammatory); I13.0 Hypertensive heart and chronic kidney disease with heart failure and stage 1 through stage 4 chronic kidney disease, or unspecified chronic kidney disease; I42.8 Other cardiomyopathies; E27.9 Disorder of adrenal gland, unspecified; J44.9 Chronic obstructive pulmonary disease, unspecified; E66.01 Morbid (severe) obesity due to excess calories; N18.30 Chronic kidney disease, stage 3 unspecified; Z20.822 Contact with and (suspected) exposure to COVID-19; N14.1 Nephropathy induced by other drugs, medicaments and biological substances; T50.8X5A Adverse effect of diagnostic agents, initial encounter; Z68.39 Body mass index [BMI] 39.0-39.9, adult; R00.1 Bradycardia, unspecified; I07.1 Rheumatic tricuspid insufficiency; E03.9 Hypothyroidism, unspecified; E78.5 Hyperlipidemia, unspecified; G47.30 Sleep apnea, unspecified; K21.9 Gastro-esophageal reflux disease without esophagitis; F32.A Depression, unspecified; I25.2 Old myocardial infarction; M19.90 Unspecified osteoarthritis, unspecified site; R32 Unspecified urinary incontinence; Z79.82 Long term (current) use of aspirin; Z79.890 Hormone replacement therapy; Z79.899 Other long term (current) drug therapy; Z96.653 Presence of artificial knee joint, bilateral; Z87.891 Personal history of nicotine dependence; Z71.3 Dietary counseling and surveillance; Z88.5 Allergy status to narcotic agent; Y92.239 Unspecified place in hospital as the place of occurrence of the external cause
CPT/HCPCS: 36415; 71045; 71275; 80048; 80053; 83605; 83735; 83880; 84132; 84439; 84443; 84484; 85025; 85379; 85610; 85730; 87040; 87636; 92960; 93005; 93306; 93312; 93320; 93325; 93458; 94760; 96374; 99285

== ENCOUNTER 2022-05-16 16:21 | Inpatient (IN) | payer MEDICARE ==
[2022-05-16] MEDS ORDERED: SODIUM CHLORIDE 0.9% 500 ML 500 ML IV STA (16:38)
[2022-05-16 16:58] LABS: INR 1.3 (<1.2); Partial Thromboplastin Time 34.7 sec (22.0-30.0); Prothrombin Time 13.9 sec (9.0-12.0)
[2022-05-16 16:59] LABS: Calcium 8.9 mg/dL (8.4-10.2); Magnesium 1.4 mg/dL (1.6-2.3); Potassium 5.5 mmol/L (3.5-5.1); Total Bilirubin 0.5 mg/dL (0.2-1.3); Total Protein 6.6 g/dL (6.3-8.2)
[2022-05-16 17:01] LABS: Anisocytosis Slight; Basophils % (A) 0 %; Eosinophils # (A) 0.1 k/uL (0-0.7); Eosinophils % (A) 0 %; HCT 34.3 % (34.0-46.0); HGB 10.6 gm/dL (11.4-16.0); Hypochromasia Marked; Lymphocytes # (A) 0.6 k/uL (1.0-4.8); Lymphocytes % (A) 3 %; MCH 25.8 pg (25.0-35.0); MCHC 30.8 g/dL (31.0-37.0); MCV 83.7 fL (80.0-100.0); Monocytes # (A) 0.4 k/uL (0-1.0); Monocytes % (A) 2 %; Neutrophils # (A) 15.9 k/uL (1.3-7.7); Neutrophils % (A) 93 %; Platelet Count 141 k/uL (150-450); RBC 4.09 m/uL (3.80-5.40); RDW 16.2 % (11.5-15.5)
--- NOTE | 2022-05-16 17:10 | ED ---
General Adult HPI - General Chief complaint: Shortness of Breath Stated complaint: SOB Time Seen by Provider: 05/16/22 16:24 Source: patient, RN notes reviewed, old records reviewed Mode of arrival: ambulatory Limitations: no limitations - History of Present Illness Initial comments: 71 -year-old female presenting with weakness, dyspnea. History of oxygen dependent COPD on 6 L home oxygen. Recent hospital admission for fluid overload. Patient states that her legs have significantly improved. She denies fever. Denies cough. She states her dyspnea is improved with treatment by paramedics nebulized albuterol and Atrovent. She denies fever. Denies vomiting. - Related Data Home Medications Medication Instructions Recorded Confirmed Multivitamins, Thera [Multivitamin 1 tab PO DAILY 12/28/17 03/21/22 (formulary)] Newcomb-3/Dha/Epa/Fish Oil [Fish Oil 1 cap PO DAILY 01/13/21 03/21/22 500 mg Softgel] Potassium Chloride [Potassium 10 meq PO DAILY 01/13/21 03/21/22 Chloride ER] Atorvastatin Calcium [Lipitor] 40 mg PO HS 03/21/22 03/21/22 Levothyroxine Sodium [Synthroid] 25 mcg PO DAILY 03/21/22 03/21/22 Sertraline [Zoloft] 100 mg PO DAILY 03/21/22 03/21/22 Previous Rx's Medication Instructions Recorded Apixaban [Eliquis] 5 mg PO BID #60 tab 03/22/22 Ipratropium-Albuterol Nebulize 3 ml INHALATION RT-QID PRN #120 03/24/22 [Duoneb 0.5 mg-3 mg/3 ml Soln] each Furosemide [Lasix] 20 mg PO DAILY #90 tab 03/26/22 Metoprolol Succinate (ER) [Toprol 25 mg PO DAILY #90 tab 03/26/22 XL] Nitroglycerin Sl Tabs [Nitrostat] 0.4 mg SUBLINGUAL Q5M PRN #100 tab 03/26/22 Sacubitril/Valsartan [Entresto 24 1 each PO BID #60 tab 03/26/22 mg-26 mg Tablet] Spironolactone [Aldactone] 25 mg PO DAILY #90 tab 03/26/22 Amiodarone [Cordarone] 200 mg PO DAILY #30 tab 03/29/22 Magnesium Oxide [Mag-Ox] 400 mg PO DAILY #30 tablet 03/29/22 Allergies Allergy/AdvReac Type Severity Reaction Status Date / Time morphine AdvReac Nausea & Verified 05/16/22 16:30 Vomiting Review of Systems ROS Statement: Those systems with pertinent positive or pertinent negative responses have been documented in the HPI. ROS Other: All systems not noted in ROS Statement are negative. Past Medical History Past Medical History: COPD, GERD/Reflux, Hyperlipidemia, Hypertension, Osteoarthritis (OA), Sleep Apnea/CPAP/BIPAP Additional Past Medical History / Comment(s): obesity (morbid), degenerative arthritis , Adrenal mass -left measuring 8.4 x 6.2 cm in size. BECAME SEPTIC W/ DEHYDRATION, BODY ULCERS R/T DEPRESSION 06/2017-07/2017; NOW ON O2 @4l & PRN.lt radial fx History of Any Multi-Drug Resistant Organisms: None Reported Past Surgical History: Breast Surgery, Section, Joint Replacement Additional Past Surgical History / Comment(s): LT BREAST CYST, edith knee replacement Past Anesthesia/Blood Transfusion Reactions: No Reported Reaction Past Psychological History: Depression Smoking Status: Former smoker Past Alcohol Use History: None Reported Past Drug Use History: None Reported - Past Family History Sister(s) Family Medical History: Liver Disease Additional Family Medical History / Comment(s): sister had genetic liver disorder from which she . pt was tested and found negative. General Exam Limitations: no limitations General appearance: alert, in no apparent distress Head exam: Present: atraumatic, normocephalic Eye exam: Present: normal appearance, PERRL ENT exam: Present: normal exam Neck exam: Present: normal inspection. Absent: tenderness, meningismus Respiratory exam: Present: decreased breath sounds. Absent: respiratory distress, wheezes Cardiovascular Exam: Present: regular rate, normal rhythm GI/Abdominal exam: Present: soft. Absent: distended, tenderness, guarding Extremities exam: Present: pedal edema Neurological exam: Present: alert, oriented X3, CN II-XII intact. Absent: motor sensory deficit Skin exam: Present: warm, dry, intact. Absent: cyanosis, diaphoretic Course Vital Signs 05/16/22 05/16/22 05/16/22 16:22 16:31 16:37 Temperature 98.9 F Pulse Rate 71 78 Respiratory 18 24 18 Rate Blood Pressure 84/43 99/37 O2 Sat by Pulse 86 L 93 L Oximetry 05/16/22 05/16/22 05/16/22 17:00 17:25 17:49 Temperature Pulse Rate 78 77 78 Respiratory 18 18 18 Rate Blood Pressure 72/49 68/30 70/36 O2 Sat by Pulse 91 L 94 L 92 L Oximetry 05/16/22 05/16/22 05/16/22 18:14 18:40 19:02 Temperature Pulse Rate 76 77 79 Respiratory 18 18 18 Rate Blood Pressure 68/37 77/38 81/36 O2 Sat by Pulse 92 L 90 L 94 L Oximetry 05/16/22 19:11 Temperature Pulse Rate 81 Respiratory 18 Rate Blood Pressure 92/49 O2 Sat by Pulse 94 L Oximetry EKG Findings - EKG Comments: EKG Findings:: EKG: Sinus rhythm T-wave abnormality in the inferior and precordial leads. No ST segment elevation, rate of 77, OR interval 202, QRS duration 122, QTC 436 similar appearing T-wave in reality compared to EKG in March of this year. Procedures - Central Line Placement Right IJ Consent Obtained: written consent Patient Placed on Monitor/Pulse Ox: Yes MD Prep: mask, gloves Central Line Prep: Chlorhexidine scrub, sterile drapes applied Local Anesthesia Used: Lidocaine 1% Amount of Anesthesia Used (mls): 5 Ultrasound Used for Placement: Yes Central Line Lumen Inserted: triple Bloods Obtained for Lab: No Central Line Position: good blood return, all ports aspirated, flushed, capped, sutured in place with nylon Dressing Applied: Tegaderm Post Procedure X-Ray: tip of catheter in good position Patient Tolerated Procedure: well Complications: none Medical Decision Making - Medical Decision Making 71-year-old female presenting with weakness and dyspnea. Patient has history of oxygen dependent COPD and nonischemic cardiomyopathy with an EF of 20-25%. She had undergone testing about one month ago including heart catheterization and echo. Patient denies chest pain. She does have EKG changes and initially the pressure is in the 60s over 30s. She states she has been on Lasix and overall her lower extremity swelling is improved and she has not had significant dyspnea. No cough. No fever. Basically the patient has no complaint. Blood pressure remains low after to 500 mL fluid boluses. Given the cardiomyopathy I did initiate norepinephrine in the emergency department. I discussed case with the engraving supervisor Dr. Dodd and the music coordinator Dr. Nava. Central line placed. Patient will be admitted for hypotension, cardiogenic shock, elevated troponin. Dr. Nava did recommend norepinephrine and heparin. Dr. Dodd did also recommend dobutamine be added. Patient's blood pressure improves on these pressors. She remains awake and alert without complaint. Family is informed of her condition and is at bedside. She will be admitted to the ICU for close monitoring. Troponin level will be trended. Additionally the patient had elevated white blood cell count and a lactic acid 2.1 and therefore blood cultures were obtained and antibiotics were initiated although I have low suspicion for sepsis at this time. - Lab Data Result diagrams: 05/16/22 16:40 05/16/22 16:40 Lab Results 05/16/22 05/16/22 05/16/22 Range/Units 16:40 16:40 16:40 WBC 17.0 H (3.8-10.6) k/uL RBC 4.09 (3.80-5.40) m/uL Hgb 10.6 L (11.4-16.0) gm/dL Hct 34.3 (34.0-46.0) % MCV 83.7 (80.0-100.0) fL MCH 25.8 (25.0-35.0) pg MCHC 30.8 L (31.0-37.0) g/dL RDW 16.2 H (11.5-15.5) % Plt Count 141 L (150-450) k/uL MPV 11.0 Neutrophils % 93 % Lymphocytes % 3 % Monocytes % 2 % Eosinophils % 0 % Basophils % 0 % Neutrophils # 15.9 H (1.3-7.7) k/uL Lymphocytes # 0.6 L (1.0-4.8) k/uL Monocytes # 0.4 (0-1.0) k/uL Eosinophils # 0.1 (0-0.7) k/uL Basophils # 0.0 (0-0.2) k/uL Hypochromasia Marked Anisocytosis Slight PT 13.9 H (9.0-12.0) sec INR 1.3 H (<1.2) APTT 34.7 H (22.0-30.0) sec Sodium 131 L (137-145) mmol/L Potassium 5.5 H (3.5-5.1) mmol/L Chloride 101 (98-107) mmol/L Carbon Dioxide 25 (22-30) mmol/L Anion Gap 5 mmol/L BUN 41 H (7-17) mg/dL Creatinine 1.42 H (0.52-1.04) mg/dL Est GFR (CKD-EPI)AfAm 42 (>60 ml/min/1.73 sqM) Est GFR (CKD-EPI)NonAf 37 (>60 ml/min/1.73 sqM) Glucose 126 H (74-99) mg/dL Lactic Ac Sepsis Rflx Plasma Lactic Acid Syed (0.7-2.0) mmol/L Calcium 8.9 (8.4-10.2) mg/dL Magnesium 1.4 L (1.6-2.3) mg/dL Total Bilirubin 0.5 (0.2-1.3) mg/dL AST 38 H (14-36) U/L ALT 20 (4-34) U/L Alkaline Phosphatase 105 (38-126) U/L Troponin I (0.000-0.034) ng/mL NT-Pro-B Natriuret Pep pg/mL Total Protein 6.6 (6.3-8.2) g/dL Albumin 3.0 L (3.5-5.0) g/dL 05/16/22 05/16/22 05/16/22 Range/Units 16:40 16:40 16:40 WBC (3.8-10.6) k/uL RBC (3.80-5.40) m/uL Hgb (11.4-16.0) gm/dL Hct (34.0-46.0) % MCV (80.0-100.0) fL MCH (25.0-35.0) pg MCHC (31.0-37.0) g/dL RDW (11.5-15.5) % Plt Count (150-450) k/uL MPV Neutrophils % % Lymphocytes % % Monocytes % % Eosinophils % % Basophils % % Neutrophils # (1.3-7.7) k/uL Lymphocytes # (1.0-4.8) k/uL Monocytes # (0-1.0) k/uL Eosinophils # (0-0.7) k/uL Basophils # (0-0.2) k/uL Hypochromasia Anisocytosis PT (9.0-12.0) sec INR (<1.2) APTT (22.0-30.0) sec Sodium (137-145) mmol/L Potassium (3.5-5.1) mmol/L Chloride (98-107) mmol/L Carbon Dioxide (22-30) mmol/L Anion Gap mmol/L BUN (7-17) mg/dL Creatinine (0.52-1.04) mg/dL Est GFR (CKD-EPI)AfAm (>60 ml/min/1.73 sqM) Est GFR (CKD-EPI)NonAf (>60 ml/min/1.73 sqM) Glucose (74-99) mg/dL Lactic Ac Sepsis Rflx Plasma Lactic Acid Syed 2.1 H* (0.7-2.0) mmol/L Calcium (8.4-10.2) mg/dL Magnesium (1.6-2.3) mg/dL Total Bilirubin (0.2-1.3) mg/dL AST (14-36) U/L ALT (4-34) U/L Alkaline Phosphatase (38-126) U/L Troponin I 2.270 H* (0.000-0.034) ng/mL NT-Pro-B Natriuret Pep 5220 pg/mL Total Protein (6.3-8.2) g/dL Albumin (3.5-5.0) g/dL 05/16/22 Range/Units 17:17 WBC (3.8-10.6) k/uL RBC (3.80-5.40) m/uL Hgb (11.4-16.0) gm/dL Hct (34.0-46.0) % MCV (80.0-100.0) fL MCH (25.0-35.0) pg MCHC (31.0-37.0) g/dL RDW (11.5-15.5) % Plt Count (150-450) k/uL MPV Neutrophils % % Lymphocytes % % Monocytes % % Eosinophils % % Basophils % % Neutrophils # (1.3-7.7) k/uL Lymphocytes # (1.0-4.8) k/uL Monocytes # (0-1.0) k/uL Eosinophils # (0-0.7) k/uL Basophils # (0-0.2) k/uL Hypochromasia Anisocytosis PT (9.0-12.0) sec INR (<1.2) APTT (22.0-30.0) sec Sodium (137-145) mmol/L Potassium (3.5-5.1) mmol/L Chloride (98-107) mmol/L Carbon Dioxide (22-30) mmol/L Anion Gap mmol/L BUN (7-17) mg/dL Creatinine (0.52-1.04) mg/dL Est GFR (CKD-EPI)AfAm (>60 ml/min/1.73 sqM) Est GFR (CKD-EPI)NonAf (>60 ml/min/1.73 sqM) Glucose (74-99) mg/dL Lactic Ac Sepsis Rflx Y Plasma Lactic Acid Syed (0.7-2.0) mmol/L Calcium (8.4-10.2) mg/dL Magnesium (1.6-2.3) mg/dL Total Bilirubin (0.2-1.3) mg/dL AST (14-36) U/L ALT (4-34) U/L Alkaline Phosphatase (38-126) U/L Troponin I (0.000-0.034) ng/mL NT-Pro-B Natriuret Pep pg/mL Total Protein (6.3-8.2) g/dL Albumin (3.5-5.0) g/dL Critical Care Time Critical Care Time: Yes Total Critical Care Time: 35 Disposition Clinical Impression: CHF (congestive heart failure), NSTEMI (non-ST elevated myocardial infarction), Cardiogenic shock, TREY (acute kidney injury) Disposition: ADMITTED IP TO THIS [facility] Condition: Serious Is patient prescribed a controlled substance at d/c from ED?: No Referrals: Kadie Pena DO [Family Provider] - 1-2 days Time of Disposition: 20:12
[2022-05-16] MEDS ORDERED: SODIUM CHLORIDE 0.9% 500 ML 500 ML IV ONE (17:20)
--- NOTE | 2022-05-16 17:31 | XR ---
EXAMINATION TYPE: XR chest 1V portable DATE OF EXAM: 05/16/2022 COMPARISON: 03/28/2022 HISTORY: Short of breath TECHNIQUE: Single view FINDINGS: Heart is enlarged. There is no gross heart failure. There is slight coarsening of interstit ial markings. There is minimal blunting of the costophrenic angles. IMPRESSION: Cardiomegaly and mild congestion. Congestive heart failure and pleural fluid improved com pared to the old exam.
[2022-05-16] MEDS ORDERED: HEPARIN SODIUM 1,000 UN/ML (10ML VL) IV PRN (17:34)
[2022-05-16] MEDS ORDERED: HEPARIN SODIUM 1,000 UN/ML (10ML VL) IV ONE (17:34)
[2022-05-16] MEDS ORDERED: HEPARIN SOD,PORK IN 0.45% NACL 25,000 UNIT in 0.45% NACL 1 250ML.BAG IV SCH (17:45)
[2022-05-16] MEDS ORDERED: NOREPINEPHRINE 4 MG in SODIUM CHLORIDE 0.9% 250 ML IV ONE (17:55)
[2022-05-16] MEDS: SODIUM CHLORIDE 0.9% 1,000 ML IV SCH (18:25)
[2022-05-16] MEDS ORDERED: NALOXONE 0.4 MG/ML 1 ML VIAL IV PRN (19:31)
[2022-05-16] MEDS ORDERED: IPRATROPIUM-ALBUTEROL 3 ML NEB INHALATION PRN (19:31)
[2022-05-16] MEDS ORDERED: ACETAMINOPHEN TAB 325 MG TAB PO PRN (19:31)
--- NOTE | 2022-05-16 20:19 | XR ---
EXAMINATION TYPE: XR chest 1V portable DATE OF EXAM: 05/16/2022 COMPARISON: 05/16/2022 HISTORY: Short of breath. Line placement. TECHNIQUE: FINDINGS: There is right jugular catheter with the tip at the top of the right atrium. There is some mild pulmonary interstitial edema. No pneumothorax. Trachea is midline. IMPRESSION: Catheter in good position. There is some pulmonary interstitial edema without change comp ared to recent exam.
[2022-05-16] MEDS: DOBUTamine DRIP 500 MG in DEXTROSE/WATER 1 250ML.BAG IV SCH (20:32)
[2022-05-16 21:36] LABS: Appearance,Urine Cloudy (Clear); Bacteria,Urine Many /hpf; Bilirubin,Urine Negative (Negative); Blood,Urine Large (Negative); Color,Urine Light Red; Glucose,Urine (UA) Negative (Negative); Ketones,Urine Negative (Negative); Leukocyte Esterase,Urine Large (Negative); Nitrite,Urine Positive (Negative); PH, Urine 5.5 (5.0-8.0); Protein,Urine 1+ (Negative); RBC,Urine 54 /hpf (0-5); Specific Gravity,Urine 1.006 (1.001-1.035); Squamous Epithelial Cell,Urine <1 /hpf (0-4); Urobilinogen,Urine <2.0 mg/dL (<2.0); WBC,Urine 126 /hpf (0-5)
[2022-05-16 21:46] LABS: Glucose,Whole Blood 132 mg/dL (70-110)
[2022-05-16] MEDS: IPRATROPIUM-ALBUTEROL 3 ML NEB INHALATION SCH (21:50)
[2022-05-16] MEDS: methylPREDNISolone SOD SUCCI 125 MG/2 ML VIAL IV SCH (21:58)
[2022-05-16] MEDS: MAGNESIUM SULFATE-D5W PMX 1 GM in DEXTROSE/WATER 1 100ML.BAG IVPB SCH ×2 (21:58→23:11)
[2022-05-17] MEDS: IPRATROPIUM-ALBUTEROL 3 ML NEB INHALATION SCH ×4 (05:15→21:07)
[2022-05-17] MEDS: INSULIN ASPART (NovoLOG) 100 UNIT/ML VIAL SQ SCH ×2 (05:36→13:09)
[2022-05-17] MEDS: methylPREDNISolone SOD SUCCI 125 MG/2 ML VIAL IV SCH (05:36)
[2022-05-17 05:37] LABS: Glucose,Whole Blood 189 mg/dL (70-110)
--- NOTE | 2022-05-17 06:51 | XR ---
EXAMINATION TYPE: XR chest 1V DATE OF EXAM: 05/17/2022 CLINICAL HISTORY: Difficulty breathing progress study. Cardiogenic shock. TECHNIQUE: Single AP portable semiupright view of the chest is obtained. COMPARISON: Chest x-ray from one day earlier and older studies. FINDINGS: Stable right internal jugular central venous catheter. Osseous structures are demineralized. Persistent cardiomegaly with atherosclerotic thoracic aorta. Ch ronic labral changes with lateral left basilar opacity. Right lung remains clear. Osseous structures are intact. IMPRESSION: Cardiomegaly and chronic changes with left lateral basilar acute infiltrate and/or atelec tasis. Some improvement from one day earlier is noted.
[2022-05-17 09:21] LABS: Albumin 2.6 g/dL (3.5-5.0); Calcium 9.2 mg/dL (8.4-10.2); Magnesium 1.8 mg/dL (1.6-2.3); Potassium 4.4 mmol/L (3.5-5.1); Total Bilirubin 0.3 mg/dL (0.2-1.3)
[2022-05-17] MEDS: SODIUM CHLORIDE 0.9% 1,000 ML IV SCH (09:46)
[2022-05-17] MEDS: SODIUM CHLORIDE 0.9% 500 ML 500 ML IV SCH (09:50)
[2022-05-17] MEDS: ASPIRIN 81 MG PO SCH (09:50)
[2022-05-17] MEDS: SPIRONOLACTONE 25 MG TAB PO SCH (09:50)
[2022-05-17] MEDS: FUROSEMIDE 10 MG/ML 2 ML VIAL IV SCH ×2 (09:50→19:58)
[2022-05-17] MEDS ORDERED: AMIODARONE 200 MG TAB PO SCH (10:00)
--- NOTE | 2022-05-17 10:48 | P.CNPUL ---
History of Present Illness Consult date: 05/17/22 Requesting physician: Cosme Pena Reason for consult: COPD, other (Critical care management) Chief complaint: Weakness, shortness of breath History of present illness: This a 71-year-old female patient with a known history of hypothyroidism, hyperlipidemia, depression, hypertension, osteoarthritis, sleep apnea, obesity, oxygen dependent chronic obstructive pulmonary disease, former smoker. She is using an oxygen at 6 L nasal cannula at baseline. She presented to the emergency room yesterday with complaints of generalized weakness and shortness of breath. She was recently hospitalized for congestive heart failure and new onset atrial fibrillation with RVR status post cardioversion, initiated on Eliquis, cardiomyopathy with ejection fraction 20-25%. Chest x-ray revealed cardiomegaly with chronic changes and left basilar opacity and evidence of fluid volume overload. Improved today compared to yesterday. Sodium 139. Potassium 4.4. BUN 25. Creatinine 0.83. Glucose 168. Troponin 2.05. She's been initiated on DuoNeb inhalations, IV diuretics, dobutamine drip at 5 mcg/kg/m. He is seen today in consultation in the intensive care unit. She is currently awake and alert in no acute distress. She is on 6 L high flow nasal cannula. Breathing a bit easier today compared to yesterday. Currently in sinus rhythm. Urinalysis cloudy with positive nitrates and moderate WBCs and many bacteria. Initiated on ceftriaxone. Review of Systems REVIEW OF SYSTEMS: CONSTITUTIONAL: Positive for generalized weakness Denies any recent significant weight loss or weight gain. EYES: Denies change in vision. EARS, NOSE, MOUTH, THROAT: Denies headaches, denies sore throat. CARDIOVASCULAR: Denies chest pain, palpitations or syncopal episodes. RESPIRATORY: Positive for shortness of breath, cough, congestion no hemoptysis. GASTROINTESTINAL: Denies change in appetite, denies abdominal pain GENITOURINARY: Denies hematuria, denies infections. MUSKULOSKELETAL: Denies pain, denies swelling. INTEGUMENTARY: Denies rash, denies eczema. NEUROLOGICAL: Denies recent memory loss, no recent seizure activity. PSYCHIATRIC: Denies anxiety, denies depression. HEMATOLOGIC/LYMPHATIC: Denies anemia, denies enlarged lymph nodes. Past Medical History Past Medical History: Atrial Fibrillation, COPD, GERD/Reflux, Hyperlipidemia, Hypertension, Osteoarthritis (OA), Sleep Apnea/CPAP/BIPAP Additional Past Medical History / Comment(s): obesity (morbid), degenerative arthritis , Adrenal mass -left measuring 8.4 x 6.2 cm in size. BECAME SEPTIC W/ DEHYDRATION, BODY ULCERS R/T DEPRESSION 06/2017-07/2017; NOW ON O2 @4l & PRN.lt radial fx;Afib- eliquis; Endometriosis- mUterine bleeding for past month on and off PCP aware History of Any Multi-Drug Resistant Organisms: None Reported Past Surgical History: Breast Surgery, Section, Joint Replacement Additional Past Surgical History / Comment(s): LT BREAST CYST, edith knee replacement Past Anesthesia/Blood Transfusion Reactions: No Reported Reaction Smoking Status: Former smoker - Past Family History Sister(s) Family Medical History: Liver Disease Additional Family Medical History / Comment(s): sister had genetic liver disorder from which she . pt was tested and found negative. Medications and Allergies Home Medications Medication Instructions Recorded Confirmed Type Multivitamins, Thera [Multivitamin 1 tab PO DAILY 12/28/17 05/16/22 History (formulary)] [place]-3/Dha/Epa/Fish Oil [Fish Oil 1 cap PO DAILY 01/13/21 05/16/22 History 500 mg Softgel] Potassium Chloride [Potassium 10 meq PO DAILY 01/13/21 05/16/22 History Chloride ER] Atorvastatin Calcium [Lipitor] 40 mg PO HS 03/21/22 05/16/22 History Levothyroxine Sodium [Synthroid] 25 mcg PO DAILY 03/21/22 05/16/22 History Sertraline [Zoloft] 100 mg PO DAILY 03/21/22 05/16/22 History Apixaban [Eliquis] 5 mg PO BID #60 tab 03/22/22 05/16/22 Rx Ipratropium-Albuterol Nebulize 3 ml INHALATION RT-QID PRN #120 03/24/22 05/16/22 Rx [Duoneb 0.5 mg-3 mg/3 ml Soln] each Furosemide [Lasix] 20 mg PO DAILY #90 tab 03/26/22 05/16/22 Rx Metoprolol Succinate (ER) [Toprol 25 mg PO DAILY #90 tab 03/26/22 05/16/22 Rx XL] Nitroglycerin Sl Tabs [Nitrostat] 0.4 mg SUBLINGUAL Q5M PRN #100 tab 03/26/22 05/16/22 Rx Spironolactone [Aldactone] 25 mg PO DAILY #90 tab 03/26/22 05/16/22 Rx Amiodarone [Cordarone] 200 mg PO DAILY #30 tab 03/29/22 05/16/22 Rx Magnesium Oxide [Mag-Ox] 400 mg PO DAILY #30 tablet 03/29/22 05/16/22 Rx Sacubitril/Valsartan [Entresto 24 1 tab PO DAILY 05/16/22 05/16/22 History mg-26 mg Tablet] Allergies Allergy/AdvReac Type Severity Reaction Status Date / Time morphine AdvReac Nausea & Verified 05/16/22 20:24 Vomiting Physical Exam Vitals: Vital Signs Temp Pulse Resp BP Pulse Ox 05/17/22 10:00 85 21 116/47 92 L 05/17/22 09:00 79 116/47 93 L 05/17/22 08:00 98.5 F 71 10 L 95/46 95 05/17/22 07:00 72 13 99/53 97 05/17/22 06:30 73 15 109/43 95 05/17/22 06:00 74 11 L 102/81 93 L 05/17/22 05:30 71 13 102/58 96 05/17/22 05:27 73 05/17/22 05:15 67 18 99/50 97 05/17/22 05:00 67 12 95/56 97 05/17/22 04:45 70 19 102/51 96 05/17/22 04:30 68 21 96/48 98 05/17/22 04:15 72 13 104/53 97 05/17/22 04:00 98.8 F 72 14 106/53 97 05/17/22 03:45 74 16 103/57 95 05/17/22 03:30 75 15 97/53 05/17/22 03:15 74 16 97/55 96 05/17/22 03:00 78 19 116/89 94 L 05/17/22 02:45 77 21 109/53 93 L 05/17/22 02:30 79 17 119/58 94 L 05/17/22 02:15 79 15 109/52 05/17/22 02:00 80 26 H 111/53 92 L 05/17/22 01:45 80 11 L 107/74 93 L 05/17/22 01:30 80 17 114/51 93 L 05/17/22 01:15 80 13 91/65 93 L 05/17/22 01:00 80 13 113/63 89 L 05/17/22 00:45 82 13 105/53 91 L 05/17/22 00:30 81 15 105/49 91 L 05/17/22 00:15 81 18 105/50 88 L 05/17/22 00:00 98.2 F 81 15 114/44 92 L 05/16/22 23:45 84 14 110/49 91 L 05/16/22 23:30 82 16 117/104 92 L 05/16/22 23:19 81 20 117/104 93 L 05/16/22 23:15 84 16 104/48 91 L 05/16/22 23:00 85 27 H 105/43 93 L 05/16/22 22:45 85 22 108/45 97 05/16/22 22:30 84 22 106/43 96 05/16/22 22:15 80 22 97/51 94 L 05/16/22 22:02 78 05/16/22 22:00 77 20 101/40 96 05/16/22 21:50 81 96 05/16/22 21:45 84 20 99/80 90 L 05/16/22 21:30 98.2 F 82 22 106/53 94 L 05/16/22 21:28 90 L 05/16/22 20:15 83 22 108/90 96 05/16/22 19:11 81 18 92/49 94 L 05/16/22 19:02 79 18 81/36 94 L 05/16/22 18:40 77 18 77/38 90 L 05/16/22 18:14 76 18 68/37 92 L 05/16/22 17:49 78 18 70/36 92 L 05/16/22 17:25 77 18 68/30 94 L 05/16/22 17:00 78 18 72/49 91 L 05/16/22 16:37 78 18 99/37 93 L 05/16/22 16:31 24 05/16/22 16:22 98.9 F 71 18 84/43 86 L Intake and Output 05/16/22 05/17/22 05/17/22 22:59 06:59 14:59 Intake Total 231.136 652.536 30 Output Total 0 1300 Balance 231.136 -647.464 30 Intake: IV 50 450 30 0.9@ 50mls/hr 50 450 30 Intake, IV Titration 181.136 202.536 Amount Magnesium Sulfate-D5w Pmx 100 100 1 gm In Dextrose/Water 1 100ml.bag @ 100 mls/hr IVPB Q1H [facility] Rx#: [id number] Norepinephrine 4 mg In 81.136 102.536 Sodium Chloride 0.9% 250 ml @ 0.03 MCG/KG/MIN 10. 058 mls/hr IV .Q24H [facility] Rx#:[id number] Output: Urine 0 1300 Other: Voiding Method External Catheter External Catheter Weight 87.997 kg 90.6 kg GENERAL EXAM: Alert, pleasant 71-year-old female, on 6 L nasal cannula, fairly comfortable in no apparent distress. HEAD: Normocephalic. EYES: Normal reaction of pupils, equal size. NOSE: Clear with pink turbinates. THROAT: No erythema or exudates. NECK: No masses, no JVD. CHEST: No chest wall deformity. LUNGS: Equal air entry with bibasilar crackles. CVS: S1 and S2 normal with no audible murmur, irregular rhythm. ABDOMEN: No hepatosplenomegaly, normal bowel sounds, no guarding or rigidity. SPINE: No scoliosis or deformity SKIN: No rashes CENTRAL NERVOUS SYSTEM: No focal deficits, tone is normal in all 4 extremities. EXTREMITIES: There is no peripheral edema. No clubbing, no cyanosis. Peripheral pulses are intact. Results - Laboratory Findings CBC and BMP: 05/16/22 16:40 05/17/22 08:28 PT/INR, D-dimer PT 13.9 sec (9.0-12.0) H 05/16/22 16:40 INR 1.3 (<1.2) H 05/16/22 16:40 Abnormal lab findings: Abnormal Labs 05/16/22 05/16/22 05/16/22 16:40 16:40 16:40 WBC 17.0 H Hgb 10.6 L MCHC 30.8 L RDW 16.2 H Plt Count 141 L Neutrophils # 15.9 H Lymphocytes # 0.6 L PT 13.9 H INR 1.3 H APTT 34.7 H Sodium 131 L Potassium 5.5 H BUN 41 H Creatinine 1.42 H Glucose 126 H POC Glucose (mg/dL) Plasma Lactic Acid Syed Magnesium 1.4 L AST 38 H Troponin I Total Protein Albumin 3.0 L Urine Appearance Urine Protein Urine Blood Urine Nitrite Ur Leukocyte Esterase Urine RBC Urine WBC Urine WBC Clumps Urine Bacteria 05/16/22 05/16/22 05/16/22 16:40 16:40 20:15 WBC Hgb MCHC RDW Plt Count Neutrophils # Lymphocytes # PT INR APTT Sodium Potassium BUN Creatinine Glucose POC Glucose (mg/dL) Plasma Lactic Acid Syed 2.1 H* Magnesium AST Troponin I 2.270 H* 2.320 H* Total Protein Albumin Urine Appearance Urine Protein Urine Blood Urine Nitrite Ur Leukocyte Esterase Urine RBC Urine WBC Urine WBC Clumps Urine Bacteria 05/16/22 05/16/22 05/16/22 21:23 21:44 22:14 WBC Hgb MCHC RDW Plt Count Neutrophils # Lymphocytes # PT INR APTT Sodium Potassium BUN Creatinine Glucose POC Glucose (mg/dL) 132 H Plasma Lactic Acid Syed Magnesium AST Troponin I 2.050 H* Total Protein Albumin Urine Appearance Cloudy H Urine Protein 1+ H Urine Blood Large H Urine Nitrite Positive H Ur Leukocyte Esterase Large H Urine RBC 54 H Urine WBC 126 H Urine WBC Clumps Moderate H Urine Bacteria Many H 05/17/22 05/17/22 05:25 08:28 WBC Hgb MCHC RDW Plt Count Neutrophils # Lymphocytes # PT INR APTT Sodium Potassium BUN 25 H Creatinine Glucose 168 H POC Glucose (mg/dL) 189 H Plasma Lactic Acid Syed Magnesium AST 40 H Troponin I Total Protein 6.0 L Albumin 2.6 L Urine Appearance Urine Protein Urine Blood Urine Nitrite Ur Leukocyte Esterase Urine RBC Urine WBC Urine WBC Clumps Urine Bacteria - Diagnostic Findings Chest x-ray: image reviewed Assessment and Plan Assessment: Acute on chronic hypoxemic respiratory failure secondary to an acute exacer bation of systolic congestive heart failure. Ejection fraction 20-25% Atrial fibrillation, anticoagulated with Eliquis Chronic hypoxemic respiratory failure secondary to chronic obstructive pulmonary disease, on 6 L nasal cannula at home History of chronic tobacco dependence Troponin leak Acute kidney injury, improved Acute urinary tract infection, on ceftriaxone Obesity Hypertension Hyperlipidemia Osteoarthritis Obstructive sleep apnea History of depression Plan: The patient was seen and evaluated Chest x-rays, labs and medications reviewed Dobutamine for now Currently off norepinephrine Continue ceftriaxone for UTI Continue diuretics Cardiology is following We will continue to follow and make further recommendations based on her clinical status I have personally seen and examined the patient, performed the documentation and the assessment and plan as written. Number of minutes spent on the visit: 20.
--- NOTE | 2022-05-17 12:34 | CA ---
Transthoracic Echo Report Name: Ramila Victor Age: 71 Gender: F : 1950 Exam Date: 05/17/2022 08:08 Exam Location: [facility] Ht (in): 65 Wt (lb): 194 Ordering Physician: Meredith Dodd MD Attending/Referring Phys: [employer] Straightener Adelita Fowler RDCS Procedure CPT: Indications: Cardogenic shock Cardiac Hx: Technical Quality: Contrast 1: Total Dose (mL): Contrast 2: Total Dose (mL): MEASUREMENTS (Male / Female) Normal Values 2D ECHO LV Diastolic Diameter PLAX 5.1 cm 4.2 - 5.9 / 3.9 - 5.3 cm LV Systolic Diameter PLAX 4.4 cm IVS Diastolic Thickness 1.2 cm 0.6 - 1.0 / 0.6 - 0.9 cm LVPW Diastolic Thickness 2.2 cm 0.6 - 1.0 / 0.6 - 0.9 cm LV Relative Wall Thickness 0.7 RV Internal Dim ED PLAX 2.9 cm LA Systolic Diameter LX 5.1 cm 3.0 - 4.0 / 2.7 - 3.8 cm LA Volume 87.4 cm??? 18 - 58 / 22 - 52 cm??? M-MODE Aortic Root Diameter MM 2.7 cm LA Systolic Diameter MM 4.7 cm LA Ao Ratio MM 1.8 MV E Point Septal Separation 0.5 cm AV Cusp Separation MM 1.1 cm DOPPLER AV Peak Velocity 211.7 cm/s AV Peak Gradient 17.9 mmHg AV Mean Velocity 161.8 cm/s AV Mean Gradient 11.8 mmHg AV Velocity Time Integral 49.3 cm LVOT Peak Velocity 100.7 cm/s LVOT Peak Gradient 4.1 mmHg MV Area PHT 2.5 cm??? Mitral E Point Velocity 61.2 cm/s Mitral A Point Velocity 85.2 cm/s Mitral E to A Ratio 0.7 MV Deceleration Time 305.6 ms MV E' Velocity 3.9 cm/s Mitral E to MV E' Ratio 15.7 TR Peak Velocity 244.8 cm/s TR Peak Gradient 24.0 mmHg Right Ventricular Systolic Press 29.0 mmHg FINDINGS Left Ventricle Mildly increased septal wall thickness. Severely increased posterior wall thickness. Left ventricular ejection fraction is estimated at 45-50% Right Ventricle Normal right ventricular size and function. Right Atrium Normal right atrial size. Left Atrium Severely increased left atrial diameter. Severely increased left atrial volume. Mildly increased left atrial area. Mitral Valve Structurally normal mitral valve. Mild mitral regurgitation. Aortic Valve Mild aortic stenosis with a peak gradient of 18 mmHg and a mean gradient of 12 mmHg. Tricuspid Valve Structurally normal tricuspid valve. Mild tricuspid regurgitation. Pulmonic Valve Structurally normal pulmonic valve. Pericardium Echo free space anterior to the right ventricle likely represents a fat pad. Aorta Normal size aortic root and proximal ascending aorta. CONCLUSIONS 1. Mildly impaired left ventricle systolic function with asymmetric hypertrophy 2. Mild aortic stenosis 3. Mild mitral and tricuspid regurgitation Previewed by: Dr. Sara Craft MD (Electronically Signed) Final Date: 17 May 2022 12:34
[2022-05-17 13:07] LABS: Glucose,Whole Blood 242 mg/dL (70-110)
[2022-05-17 16:22] LABS: Glucose,Whole Blood 126 mg/dL (70-110)
--- NOTE | 2022-05-17 16:33 | P.HPIM ---
History of Present Illness H&P Date: 05/17/22 Chief Complaint: Increased weakness This is a 71-year-old obese female recently diagnosed /hospitalized in March with new onset atrial fibrillation and multiple other medical issues presented to the ER with increasing weakness especially noted in the legs after episodes of diarrhea. Patient reports she has been compliant with her low- sodium diet but had consumed significant amount of pineapple juice, developed diarrhea. Denies falls, head trauma. Denies syncope. Denies lightheadedness dizziness or focal deficits. Denies chest pain, palpitations or shortness of breath. O2 sat on admission was 86% on room air/91-93% on 6 L nasal cannula(which patient wears at home). Hypotensive on admission, blood pressure 84/43, dropped to 68/30. Denies sickness congestion fevers or chills. Patient had completed cardiology rehab. on the and was scheduled to follow-up with cardiology on Tuesday. Sitting up on a couple pills states it hurts her back to lay flat. Telemetry sinus rhythm. Dobutamine increased and losartan resumed. Levophed drip weaned off earlier this morning. Afebrile, WBC 17, hemoglobin 10.6 platelets 141,INR 1.3. Sodium improved 139, potassium 4.4, bicarb 28, BUN 25, creatinine 0.83. Blood sugars controlled, lactic acid 1.1, magnesium 1.8 after supplementation, troponin is 2.270, 2.320, 2.050. UA reporting many bacteria, moderate wbc's: 226 WBCs large leukocytes and positive nitrates, culture in progress. Chest x-ray reported cardiomegaly, mild congestion, CHF and pleural fluid improved compared to prior exam. Echo pending Review of Systems ROS Statement: Those systems with pertinent positive or pertinent negative responses have been documented in the HPI. ROS Other: All systems not noted in ROS Statement are negative. Past Medical History Past Medical History: Atrial Fibrillation, COPD, GERD/Reflux, Hyperlipidemia, Hypertension, Osteoarthritis (OA), Sleep Apnea/CPAP/BIPAP Additional Past Medical History / Comment(s): obesity (morbid), degenerative arthritis , Adrenal mass -left measuring 8.4 x 6.2 cm in size. BECAME SEPTIC W/ DEHYDRATION, BODY ULCERS R/T DEPRESSION 06/2017-07/2017; NOW ON O2 @4l & PRN.lt radial fx;Afib- eliquis; Endometriosis- mUterine bleeding for past month on and off PCP aware History of Any Multi-Drug Resistant Organisms: None Reported Past Surgical History: Breast Surgery, Section, Joint Replacement Additional Past Surgical History / Comment(s): LT BREAST CYST, edith knee replacement Past Anesthesia/Blood Transfusion Reactions: No Reported Reaction Smoking Status: Former smoker - Past Family History Sister(s) Family Medical History: Liver Disease Additional Family Medical History / Comment(s): sister had genetic liver disorder from which she . pt was tested and found negative. Medications and Allergies Home Medications Medication Instructions Recorded Confirmed Type Multivitamins, Thera [Multivitamin 1 tab PO DAILY 12/28/17 05/16/22 History (formulary)] [facility]/Dha/Epa/Fish Oil [Fish Oil 1 cap PO DAILY 01/13/21 05/16/22 History 500 mg Softgel] Potassium Chloride [Potassium 10 meq PO DAILY 01/13/21 05/16/22 History Chloride ER] Atorvastatin Calcium [Lipitor] 40 mg PO HS 03/21/22 05/16/22 History Levothyroxine Sodium [Synthroid] 25 mcg PO DAILY 03/21/22 05/16/22 History Sertraline [Zoloft] 100 mg PO DAILY 03/21/22 05/16/22 History Apixaban [Eliquis] 5 mg PO BID #60 tab 03/22/22 05/16/22 Rx Ipratropium-Albuterol Nebulize 3 ml INHALATION RT-QID PRN #120 03/24/22 05/16/22 Rx [Duoneb 0.5 mg-3 mg/3 ml Soln] each Furosemide [Lasix] 20 mg PO DAILY #90 tab 03/26/22 05/16/22 Rx Metoprolol Succinate (ER) [Toprol 25 mg PO DAILY #90 tab 03/26/22 05/16/22 Rx XL] Nitroglycerin Sl Tabs [Nitrostat] 0.4 mg SUBLINGUAL Q5M PRN #100 tab 03/26/22 05/16/22 Rx Spironolactone [Aldactone] 25 mg PO DAILY #90 tab 03/26/22 05/16/22 Rx Amiodarone [Cordarone] 200 mg PO DAILY #30 tab 03/29/22 05/16/22 Rx Magnesium Oxide [Mag-Ox] 400 mg PO DAILY #30 tablet 03/29/22 05/16/22 Rx Sacubitril/Valsartan [Entresto 24 1 tab PO DAILY 05/16/22 05/16/22 History mg-26 mg Tablet] Allergies Allergy/AdvReac Type Severity Reaction Status Date / Time morphine AdvReac Nausea & Verified 05/16/22 20:24 Vomiting Physical Exam Vitals: Vital Signs Temp Pulse Resp BP Pulse Ox 05/17/22 15:00 92 22 110/57 96 05/17/22 14:00 94 11 L 89/54 97 05/17/22 13:17 87 05/17/22 13:07 89 05/17/22 13:00 86 18 105/83 95 05/17/22 12:00 98.2 F 92 10 L 113/52 96 05/17/22 11:00 87 10 L 102/48 97 05/17/22 10:00 85 21 116/47 92 L 05/17/22 09:00 79 116/47 93 L 05/17/22 08:00 98.5 F 71 10 L 95/46 95 05/17/22 07:00 72 13 99/53 97 05/17/22 06:30 73 15 109/43 95 05/17/22 06:00 74 11 L 102/81 93 L 05/17/22 05:30 71 13 102/58 96 05/17/22 05:27 73 05/17/22 05:15 67 18 99/50 97 05/17/22 05:00 67 12 95/56 97 05/17/22 04:45 70 19 102/51 96 05/17/22 04:30 68 21 96/48 98 05/17/22 04:15 72 13 104/53 97 05/17/22 04:00 98.8 F 72 14 106/53 97 05/17/22 03:45 74 16 103/57 95 05/17/22 03:30 75 15 97/53 05/17/22 03:15 74 16 97/55 96 05/17/22 03:00 78 19 116/89 94 L 05/17/22 02:45 77 21 109/53 93 L 05/17/22 02:30 79 17 119/58 94 L 05/17/22 02:15 79 15 109/52 05/17/22 02:00 80 26 H 111/53 92 L 05/17/22 01:45 80 11 L 107/74 93 L 05/17/22 01:30 80 17 114/51 93 L 05/17/22 01:15 80 13 91/65 93 L 05/17/22 01:00 80 13 113/63 89 L 05/17/22 00:45 82 13 105/53 91 L 05/17/22 00:30 81 15 105/49 91 L 05/17/22 00:15 81 18 105/50 88 L 05/17/22 00:00 98.2 F 81 15 114/44 92 L 05/16/22 23:45 84 14 110/49 91 L 05/16/22 23:30 82 16 117/104 92 L 05/16/22 23:19 81 20 117/104 93 L 05/16/22 23:15 84 16 104/48 91 L 05/16/22 23:00 85 27 H 105/43 93 L 05/16/22 22:45 85 22 108/45 97 05/16/22 22:30 84 22 106/43 96 05/16/22 22:15 80 22 97/51 94 L 05/16/22 22:02 78 05/16/22 22:00 77 20 101/40 96 05/16/22 21:50 81 96 05/16/22 21:45 84 20 99/80 90 L 05/16/22 21:30 98.2 F 82 22 106/53 94 L 05/16/22 21:28 90 L 05/16/22 20:15 83 22 108/90 96 05/16/22 19:11 81 18 92/49 94 L 05/16/22 19:02 79 18 81/36 94 L 05/16/22 18:40 77 18 77/38 90 L 05/16/22 18:14 76 18 68/37 92 L 05/16/22 17:49 78 18 70/36 92 L 05/16/22 17:25 77 18 68/30 94 L 05/16/22 17:00 78 18 72/49 91 L 05/16/22 16:37 78 18 99/37 93 L 05/16/22 16:31 24 05/16/22 16:22 98.9 F 71 18 84/43 86 L Intake and Output 05/17/22 05/17/22 05/17/22 06:59 14:59 22:59 Intake Total 652.536 70 10 Output Total 1300 1200 Balance -647.464 -1130 10 Intake: IV 450 70 10 0.9@ 50mls/hr 450 70 10 Intake, IV Titration 202.536 Amount Magnesium Sulfate-D5w Pmx 100 1 gm In Dextrose/Water 1 100ml.bag @ 100 mls/hr IVPB Q1H [facility] Rx#: [id number] Norepinephrine 4 mg In 102.536 Sodium Chloride 0.9% 250 ml @ 0.03 MCG/KG/MIN 10. 058 mls/hr IV .Q24H ONE Rx#:[id number] Output: Urine 1300 1200 Other: Voiding Method External Catheter External Catheter Weight 90.6 kg PHYSICAL EXAM: VITAL SIGNS: As above GENERAL: Morbidly obese, sitting up in bed, no acute distress HEENT: Conjunctivae normal. eyes normal. NECK: Supple, No JVD. No thyroid enlargement. No LNs CARDIOVASCULAR: S1, S2,regular.No murmur RESPIRATION: Breath sounds diminished with fine crackles in bilateral bases. No rhonchi.No bronchial breathing. ABDOMEN: Soft, nontender . No guarding. no masses palpable. No ascites, No hepa tosplenomegaly.Bowel sounds heard. LEGS: No edema, no cyanosis, no clubbing. PSYCHIATRY: Alert and oriented X3, mood and affect normal. NERVOUS SYSTEM: Cranial N 2-12 grossly normal. No focal deficits. Strength and sensation grossly intact. Skin: Warm and dry, no rash. Results CBC & Chem 7: 05/16/22 16:40 05/17/22 08:28 Labs: Abnormal Lab Results - Last 24 Hours (Table) 05/16/22 05/16/22 05/16/22 Range/Units 16:40 16:40 16:40 WBC 17.0 H (3.8-10.6) k/uL Hgb 10.6 L (11.4-16.0) gm/dL MCHC 30.8 L (31.0-37.0) g/dL RDW 16.2 H (11.5-15.5) % Plt Count 141 L (150-450) k/uL Neutrophils # 15.9 H (1.3-7.7) k/uL Lymphocytes # 0.6 L (1.0-4.8) k/uL PT 13.9 H (9.0-12.0) sec INR 1.3 H (<1.2) APTT 34.7 H (22.0-30.0) sec Sodium 131 L (137-145) mmol/L Potassium 5.5 H (3.5-5.1) mmol/L BUN 41 H (7-17) mg/dL Creatinine 1.42 H (0.52-1.04) mg/dL Glucose 126 H (74-99) mg/dL POC Glucose (mg/dL) (70-110) mg/dL Plasma Lactic Acid Syed (0.7-2.0) mmol/L Magnesium 1.4 L (1.6-2.3) mg/dL AST 38 H (14-36) U/L Troponin I (0.000-0.034) ng/mL Total Protein (6.3-8.2) g/dL Albumin 3.0 L (3.5-5.0) g/dL Urine Appearance (Clear) Urine Protein (Negative) Urine Blood (Negative) Urine Nitrite (Negative) Ur Leukocyte Esterase (Negative) Urine RBC (0-5) /hpf Urine WBC (0-5) /hpf Urine WBC Clumps (None) /hpf Urine Bacteria (None) /hpf 05/16/22 05/16/22 05/16/22 Range/Units 16:40 16:40 20:15 WBC (3.8-10.6) k/uL Hgb (11.4-16.0) gm/dL MCHC (31.0-37.0) g/dL RDW (11.5-15.5) % Plt Count (150-450) k/uL Neutrophils # (1.3-7.7) k/uL Lymphocytes # (1.0-4.8) k/uL PT (9.0-12.0) sec INR (<1.2) APTT (22.0-30.0) sec Sodium (137-145) mmol/L Potassium (3.5-5.1) mmol/L BUN (7-17) mg/dL Creatinine (0.52-1.04) mg/dL Glucose (74-99) mg/dL POC Glucose (mg/dL) (70-110) mg/dL Plasma Lactic Acid Syed 2.1 H* (0.7-2.0) mmol/L Magnesium (1.6-2.3) mg/dL AST (14-36) U/L Troponin I 2.270 H* 2.320 H* (0.000-0.034) ng/mL Total Protein (6.3-8.2) g/dL Albumin (3.5-5.0) g/dL Urine Appearance (Clear) Urine Protein (Negative) Urine Blood (Negative) Urine Nitrite (Negative) Ur Leukocyte Esterase (Negative) Urine RBC (0-5) /hpf Urine WBC (0-5) /hpf Urine WBC Clumps (None) /hpf Urine Bacteria (None) /hpf 05/16/22 05/16/22 05/16/22 Range/Units 21:23 21:44 22:14 WBC (3.8-10.6) k/uL Hgb (11.4-16.0) gm/dL MCHC (31.0-37.0) g/dL RDW (11.5-15.5) % Plt Count (150-450) k/uL Neutrophils # (1.3-7.7) k/uL Lymphocytes # (1.0-4.8) k/uL PT (9.0-12.0) sec INR (<1.2) APTT (22.0-30.0) sec Sodium (137-145) mmol/L Potassium (3.5-5.1) mmol/L BUN (7-17) mg/dL Creatinine (0.52-1.04) mg/dL Glucose (74-99) mg/dL POC Glucose (mg/dL) 132 H (70-110) mg/dL Plasma Lactic Acid Syed (0.7-2.0) mmol/L Magnesium (1.6-2.3) mg/dL AST (14-36) U/L Troponin I 2.050 H* (0.000-0.034) ng/mL Total Protein (6.3-8.2) g/dL Albumin (3.5-5.0) g/dL Urine Appearance Cloudy H (Clear) Urine Protein 1+ H (Negative) Urine Blood Large H (Negative) Urine Nitrite Positive H (Negative) Ur Leukocyte Esterase Large H (Negative) Urine RBC 54 H (0-5) /hpf Urine WBC 126 H (0-5) /hpf Urine WBC Clumps Moderate H (None) /hpf Urine Bacteria Many H (None) /hpf 05/17/22 05/17/22 05/17/22 Range/Units 05:25 08:28 13:05 WBC (3.8-10.6) k/uL Hgb (11.4-16.0) gm/dL MCHC (31.0-37.0) g/dL RDW (11.5-15.5) % Plt Count (150-450) k/uL Neutrophils # (1.3-7.7) k/uL Lymphocytes # (1.0-4.8) k/uL PT (9.0-12.0) sec INR (<1.2) APTT (22.0-30.0) sec Sodium (137-145) mmol/L Potassium (3.5-5.1) mmol/L BUN 25 H (7-17) mg/dL Creatinine (0.52-1.04) mg/dL Glucose 168 H (74-99) mg/dL POC Glucose (mg/dL) 189 H 242 H (70-110) mg/dL Plasma Lactic Acid Syed (0.7-2.0) mmol/L Magnesium (1.6-2.3) mg/dL AST 40 H (14-36) U/L Troponin I (0.000-0.034) ng/mL Total Protein 6.0 L (6.3-8.2) g/dL Albumin 2.6 L (3.5-5.0) g/dL Urine Appearance (Clear) Urine Protein (Negative) Urine Blood (Negative) Urine Nitrite (Negative) Ur Leukocyte Esterase (Negative) Urine RBC (0-5) /hpf Urine WBC (0-5) /hpf Urine WBC Clumps (None) /hpf Urine Bacteria (None) /hpf Microbiology - Last 24 Hours (Table) 05/16/22 21:23 Urine Culture - Preliminary Urine,Voided Thrombosis Risk Factor Assmnt - Choose All That Apply Each Factor Represents 1 point: Abnormal pulmonary function (COPD), Medical pt on bed rest, Obesity (BMI >25), Sepsis (< 1month) Other Risk Factors: Yes Each Risk Factor Represents 2 Points: Age 61-74 years Other congenital or acquired thrombophilia - If yes, enter type in comment: No Thrombosis Risk Factor Assessment Total Risk Factor Score: 6 Thrombosis Risk Factor Assessment Level: High Risk Assessment and Plan Assessment: Acute on chronic hypoxic respiratory failure secondary to acute on chronic CHF, systolic dysfunction, EF 20-25%. Wears 6 L nasal cannula at home. Hypotension, currently on dobutamine, nor epi weaned off. Troponins elevated, cardiology following Acute UTI, culture pending Recently diagnosed New-onset paroximal atrial fibrillation with RVR, s/p successful cardioversion, 03/25. Nonischemic cardiomyopathy, Acute renal insufficiency, contrast-induced. History of Left adrenal mass , large, increased from exam 5 years ago. Further follow-up outpatient with endocrinology. CAD, history of PR COPD Hypertension Hyperlipidemia Morbid obesity, BMI 33.2 Obstructive sleep apnea Plan: Continue on current medication regime ,monitoring and symptomatic treatment. ICU management as per viner operator. Maintain Ceftriaxone for acute UTI, culture finalizing. Echo pending. The impression and plan of care has been dictated as directed. : I performed a history and examination of this patient, discussed the same with the dictator. I agree with the dictator's note ,documented as a scribe. Any additional findings or plans will be noted.
[2022-05-17] MEDS ORDERED: INSULIN ASPART (NovoLOG) 100 UNIT/ML VIAL SQ SCH (17:30)
[2022-05-17] MEDS: HEPARIN SODIUM,PORCINE/PF 5,000 UNIT/0.5 ML SYRINGE SQ SCH ×2 (17:50→23:19)
[2022-05-17] MEDS ORDERED: DEXTROSE 5% IN WATER 100 ML with AMIODARONE 150 MG IV ONE (19:37)
[2022-05-17] MEDS ORDERED: AMIODARONE 360 MG in DEXTROSE 5% IN WATER 200 ML IV ONE ×2 (19:38)
[2022-05-17] MEDS: DOBUTamine DRIP 500 MG in DEXTROSE/WATER 1 250ML.BAG IV SCH (19:40)
[2022-05-17] MEDS: METOPROLOL TARTRATE 12.5 MG TAB PO SCH (19:58)
[2022-05-17] MEDS ORDERED: SACUBITRIL/VALSARTAN 24 MG-26 MG TABLET PO SCH (21:00)
[2022-05-17] MEDS ORDERED: LOSARTAN 25 MG TAB PO SCH (21:00)
[2022-05-18 01:28] LABS: Anisocytosis Slight; Basophils % (A) 0 %; Eosinophils % (A) 0 %; HCT 31.7 % (34.0-46.0); HGB 9.8 gm/dL (11.4-16.0); Hypochromasia Marked; Lymphocytes % (A) 8 %; MCH 25.9 pg (25.0-35.0); MCHC 30.8 g/dL (31.0-37.0); MCV 84.1 fL (80.0-100.0); Mean Platelet Volume 11.4; Monocytes # (A) 0.6 k/uL (0-1.0); Monocytes % (A) 5 %; Neutrophils # (A) 10.6 k/uL (1.3-7.7); Neutrophils % (A) 85 %; Platelet Count 142 k/uL (150-450); RBC 3.77 m/uL (3.80-5.40); RDW 16.5 % (11.5-15.5); WBC 12.5 k/uL (3.8-10.6)
[2022-05-18 01:49] LABS: Calcium 9.9 mg/dL (8.4-10.2); Magnesium 1.5 mg/dL (1.6-2.3); Phosphorus 2.5 mg/dL (2.5-4.5); Potassium 5.4 mmol/L (3.5-5.1)
[2022-05-18] MEDS ORDERED: Magnesium Replacement Protocol 1 EACH MISC MISCELLANE PRN (02:00)
[2022-05-18] MEDS: AMIODARONE 450 MG in DEXTROSE 5% IN WATER 250 ML IV SCH ×4 (02:01→17:05)
[2022-05-18] MEDS: MAGNESIUM SULFATE-D5W PMX 1 GM in DEXTROSE/WATER 1 100ML.BAG IVPB SCH ×3 (02:12→04:16)
--- NOTE | 2022-05-18 07:48 | CONS ---
CONSULTATION HISTORY OF PRESENT ILLNESS: Ramila Victor is a 71-year-old lady, who was recently in the hospital around March or so, at which time, she was found to be in atrial fibrillation, underwent a cardiac catheterization followed by a CHINO and electrical cardioversion. Echo revealed ejection fraction in the 25% range, but no significant obstructive CAD. She is here in the hospital with complaints of feeling weak, tired, exhausted with shortness of breath. She has history of COPD, smoked until 5 years ago, uses oxygen at home. Increasing shortness of breath, generalized weakness, and edema of lower extremities are her complaints. I am asked to see her mainly for exacerbation of systolic heart failure. She seems to be more comfortable since arrival. She is in a sinus mechanism. She has been placed on dobutamine with which she has shown improvement. She is on 2.5 mcg of dobutamine. Levophed has been weaned off. She is feeling better. No chest pain or shortness of breath at the time of my evaluation. PAST MEDICAL HISTORY: 1. Nonischemic cardiomyopathy based on a cardiac catheterization. 2. Paroxysmal atrial fibrillation, status post transesophageal echo and cardioversion. 3. Hypothyroidism. 4. Hyperlipidemia. 5. Recent hospitalization in March with congestive heart failure. Please refer to the detailed admitting note. MEDICATIONS AT HOME: Include: 1. Eliquis 5 mg b.i.d. 2. Metoprolol succinate 25 mg daily. 3. Entresto one tablet b.i.d. 4. Aldactone 25 mg daily. 5. Amiodarone 200 mg daily. 6. Magnesium supplements. PHYSICAL EXAMINATION: VITAL SIGNS: On examination, blood pressure is 108/70, pulse rate is 70 per minute. NECK: JVD 1 cm. No carotid bruit. HEART: Reveals S1 and S2 without significant murmurs. LUNGS: Reveal bilateral fine rales. ABDOMEN: Soft and nontender. EXTREMITIES: Lower extremities reveal diminished pulses. CENTRAL NERVOUS SYSTEM: Grossly, no focal deficits. IMAGING STUDIES: Chest x-ray report suggests mild pulmonary vascular congestion with some chronic changes and atelectasis or infiltrate, left base. EKG revealed sinus mechanism with evidence of IVCD of RBBB type and nonspecific ST and T-wave changes. LABORATORY DATA: Troponin elevation is not significant to suggest myocardial injury. It is flat at 2.0 and 2.3. IMPRESSION: 1. Exacerbation of congestive heart failure. 2. History of nonischemic cardiomyopathy. 3. Exacerbation of chronic obstructive pulmonary disease with past history of smoking. RECOMMENDATIONS: I am recommending that we increase the dobutamine to 5 mcg and cut the fluids to KVO. Place her on a small dose of losartan 25 mg daily or we can wait till this evening and try Entresto, which she was on at 24/ one tablet b.i.d. She is maintaining sinus rhythm, which is quite encouraging. Overall, prognosis remains guarded. MMODL / IJN: [id number] /
[2022-05-18] MEDS: IPRATROPIUM-ALBUTEROL 3 ML NEB INHALATION SCH ×4 (08:05→20:34)
[2022-05-18] MEDS: SODIUM CHLORIDE 0.9% 500 ML 500 ML IV SCH (08:34)
[2022-05-18] MEDS: HEPARIN SODIUM,PORCINE/PF 5,000 UNIT/0.5 ML SYRINGE SQ SCH ×2 (08:34→09:32)
[2022-05-18] MEDS: SPIRONOLACTONE 25 MG TAB PO SCH (08:35)
[2022-05-18] MEDS: ASPIRIN 81 MG PO SCH (08:35)
[2022-05-18] MEDS: METOPROLOL TARTRATE 12.5 MG TAB PO SCH (08:35)
[2022-05-18] MEDS: FUROSEMIDE 10 MG/ML 2 ML VIAL IV SCH ×2 (08:35→20:05)
[2022-05-18] MEDS: APIXABAN 5 MG TAB PO SCH ×2 (09:29→20:04)
[2022-05-18] MEDS: METOPROLOL TARTRATE 50 MG TAB PO SCH ×2 (10:30→21:08)
--- NOTE | 2022-05-18 11:22 | P.PN ---
Subjective Progress Note Date: 05/18/22 This a 71-year-old female patient with a known history of hypothyroidism, hyperlipidemia, depression, hypertension, osteoarthritis, sleep apnea, obesity, oxygen dependent chronic obstructive pulmonary disease, former smoker. She is using an oxygen at 6 L nasal cannula at baseline. [facility] with complaints of generalized weakness and shortness of breath. She was recently hospitalized for congestive heart failure and new onset atrial fibrillation with RVR status post cardioversion, initiated on Eliquis, cardiomyopathy with ejection fraction 20-25%. Chest x-ray revealed cardiomegaly with chronic changes and left basilar opacity and evidence of fluid volume overload. Improved today compared to yesterday. Sodium 139. Potassium 4.4. BUN 25. Creatinine 0.83. Glucose 168. Troponin 2.05. She's been initiated on DuoNeb inhalations, IV diuretics, dobutamine drip at 5 mcg/kg/m. He is seen today in consultation in the intensive care unit. She is currently awake and alert in no acute distress. She is on 6 L high flow nasal cannula. Breathing a bit easier today compared to yesterday. Currently in sinus rhythm. Urinalysis cloudy with positive nitrates and moderate WBCs and many bacteria. Initiated on ceftriaxone. The patient is seen today 05/18/2022 in follow-up in the intensive care unit. She is currently sitting up in bed. Awake and alert. She is maintaining O2 saturations in the low 90s on 6 L high flow nasal cannula. She is having on going issues with atrial fibrillation with rapid ventricular response. She is on amiodarone drip at 0.5 mg/m. Dobutamine at 2.5 mcg/kg/m. Normal saline at 10 mL per hour. The plan is for cardioversion tomorrow per cardiology. Blood culture reveals no growth. Urine culture reveals no growth. White count 12.5. Hemoglobin 9.8. Platelet 142. Sodium 134. Potassium 5.4. Bicarb 31. BUN 23. Creatinine 0.95. Glucose 114. She is continued on DuoNeb inhalations, antibiotics in the form of ceftriaxone. Remains on IV diuretics. Currently in a -2.2 L balance. Anticoagulated with Eliquis. Objective - Vital Signs Vital signs: Vital Signs Temp 98.3 F 05/18/22 08:03 Pulse 121 H 05/18/22 11:00 Resp 18 05/18/22 11:00 BP 84/50 05/18/22 11:00 Pulse Ox 97 05/18/22 10:00 FiO2 Intake & Output 05/17/22 05/18/22 05/18/22 18:59 06:59 18:59 Intake Total 120 572.68 158 Output Total 1500 1400 300 Balance -1380 -827.32 -142 Weight 90.8 kg Intake: IV 120 120 40 0.9@ 10mls/hr 120 120 40 Intake, IV Titration 452.68 Amount DOBUTamine DRIP 500 mg In 152.68 Dextrose/Water 1 250ml. bag @ 2.5 MCG/KG/MIN 6.6 mls/hr IV .Q24H [facility] Rx#: [id number] Magnesium Sulfate-D5w Pmx 300 1 gm In Dextrose/Water 1 100ml.bag @ 100 mls/hr IVPB Q1H [facility] Rx#: [id number] Oral 118 Output: Urine 1500 1400 300 Other: Voiding Method External Catheter External Catheter # Voids 1 1 # Bowel Movements 1 - Exam GENERAL EXAM: Alert, 71-year-old female, on 6 L nasal cannula, fairly comfortable in no apparent distress. HEAD: Normocephalic. EYES: Normal reaction of pupils, equal size. NOSE: Clear with pink turbinates. THROAT: No erythema or exudates. NECK: No masses, no JVD. CHEST: No chest wall deformity. LUNGS: Equal air entry with bibasilar crackles. CVS: S1 and S2 normal with no audible murmur, irregular rhythm. ABDOMEN: No hepatosplenomegaly, normal bowel sounds, no guarding or rigidity. SPINE: No scoliosis or deformity SKIN: No rashes CENTRAL NERVOUS SYSTEM: No focal deficits, tone is normal in all 4 extremities. EXTREMITIES: There is no peripheral edema. No clubbing, no cyanosis. Peripheral pulses are intact. - Labs CBC & Chem 7: 05/18/22 01:14 05/18/22 01:14 Labs: Abnormal Lab Results - Last 24 Hours (Table) 05/17/22 05/17/22 05/17/22 Range/Units 08:28 13:05 16:21 WBC (3.8-10.6) k/uL RBC (3.80-5.40) m/uL Hgb (11.4-16.0) gm/dL Hct (34.0-46.0) % MCHC (31.0-37.0) g/dL RDW (11.5-15.5) % Plt Count (150-450) k/uL Neutrophils # (1.3-7.7) k/uL Sodium (137-145) mmol/L Potassium (3.5-5.1) mmol/L Carbon Dioxide (22-30) mmol/L BUN (7-17) mg/dL Glucose (74-99) mg/dL POC Glucose (mg/dL) 242 H 126 H (70-110) mg/dL Magnesium (1.6-2.3) mg/dL Procalcitonin 1.34 H (0.02-0.09) ng/mL 05/18/22 05/18/22 Range/Units 01:14 01:14 WBC 12.5 H (3.8-10.6) k/uL RBC 3.77 L (3.80-5.40) m/uL Hgb 9.8 L (11.4-16.0) gm/dL Hct 31.7 L (34.0-46.0) % MCHC 30.8 L (31.0-37.0) g/dL RDW 16.5 H (11.5-15.5) % Plt Count 142 L (150-450) k/uL Neutrophils # 10.6 H (1.3-7.7) k/uL Sodium 134 L (137-145) mmol/L Potassium 5.4 H (3.5-5.1) mmol/L Carbon Dioxide 31 H (22-30) mmol/L BUN 23 H (7-17) mg/dL Glucose 114 H (74-99) mg/dL POC Glucose (mg/dL) (70-110) mg/dL Magnesium 1.5 L (1.6-2.3) mg/dL Procalcitonin (0.02-0.09) ng/mL Microbiology - Last 24 Hours (Table) 05/16/22 20:40 Blood Culture - Preliminary Blood No Growth after 24 hours 05/16/22 20:45 Blood Culture - Preliminary Blood No Growth after 24 hours 05/16/22 21:23 Urine Culture - Preliminary Urine,Voided Assessment and Plan Assessment: Acute on chronic hypoxemic respiratory failure secondary to an acute exacerbation of systolic congestive heart failure. Ejection fraction 20-25% Atrial fibrillation, anticoagulated with Eliquis Chronic hypoxemic respiratory failure secondary to chronic obstructive pulmonary disease, on 6 L nasal cannula at home History of chronic tobacco dependence Troponin leak Acute kidney injury, improved Acute urinary tract infection, on ceftriaxone Obesity Hypertension Hyperlipidemia Osteoarthritis Obstructive sleep apnea History of depression Plan: The patient was seen and evaluated Labs and medications reviewed Remains on amiodarone and Dobutamine drips Plan is for cardioversion tomorrow Continue ceftriaxone for UTI Continue diuretics We will continue to follow I have personally seen and examined the patient, performed the documentation and the assessment and plan as written. Number of minutes spent on the visit: 10.
[2022-05-18] MEDS: NOREPINEPHRINE 4 MG in SODIUM CHLORIDE 0.9% 250 ML IV SCH (13:32)
[2022-05-18] MEDS: AMIODARONE 200 MG TAB PO SCH (20:04)
--- NOTE | 2022-05-18 21:45 | PN ---
PROGRESS NOTE SUBJECTIVE: This is a lady with nonischemic cardiomyopathy, came in with unclear etiology; however, she is on amiodarone drip that I started yesterday. She went into atrial fibrillation. We will discontinue the dobutamine and consider electrical cardioversion if not tomorrow, at least in 48 hours. We will try amiodarone for now. The patient overall looks better; however, she is hypotensive. Therefore, I will hold off on the IV Cardizem for now. OBJECTIVE: HEART: S1 and S2 heard normally. Irregularity in rhythm noted. Short systolic murmur noted. LUNGS: Reveal diminished air entry. ABDOMEN: Unchanged. LOWER EXTREMITIES: Unchanged. PLAN: To discontinue dobutamine, continue amiodarone, and based on clinical course, we will make further recommendations. Consider electrical cardioversion, not tomorrow, but we will evaluate tomorrow and consider day after. PROGNOSIS: Remains guarded. MMODL / IJN: [id number] /
[2022-05-19] MEDS: SODIUM CHLORIDE 0.9% 500 ML 500 ML IV SCH ×2 (03:45→11:00)
[2022-05-19] MEDS: NOREPINEPHRINE 4 MG in SODIUM CHLORIDE 0.9% 250 ML IV SCH ×2 (06:12→23:08)
--- NOTE | 2022-05-19 07:12 | XR ---
EXAMINATION TYPE: XR chest 1V portable DATE OF EXAM: 05/19/2022 5:52 AM COMPARISON: Chest radiograph from two days prior. TECHNIQUE: XR chest 1V portable Portable AP radiograph of the chest. CLINICAL INDICATION:Female, 71 years old with history of CHF; FINDINGS: Lungs/Pleura: There is no evidence of pleural effusion, focal consolidation, or pneumothorax. Pulmonary vascularity: Mild pulmonary vascular congestion. Heart/mediastinum: Cardiomediastinal silhouette is enlarged and stable. Musculoskeletal: No acute osseous pathology. Lines/Tubes: Right internal jugular central venous catheter with distal tip at the cavoatrial junction. IMPRESSION: Similar Cardiomegaly and mild pulmonary vascular congestion. .
[2022-05-19 07:33] LABS: Anisocytosis Slight; Basophils % (A) 0 %; Eosinophils # (A) 0.2 k/uL (0-0.7); Eosinophils % (A) 2 %; HCT 36.3 % (34.0-46.0); Hypochromasia Marked; Lymphocytes # (A) 1.9 k/uL (1.0-4.8); Lymphocytes % (A) 19 %; MCH 25.6 pg (25.0-35.0); MCHC 30.3 g/dL (31.0-37.0); MCV 84.5 fL (80.0-100.0); Mean Platelet Volume 10.9; Monocytes # (A) 0.5 k/uL (0-1.0); Monocytes % (A) 5 %; Neutrophils # (A) 7.2 k/uL (1.3-7.7); Neutrophils % (A) 73 %; Platelet Count 175 k/uL (150-450); RDW 16.6 % (11.5-15.5)
[2022-05-19 07:37] LABS: Calcium 8.9 mg/dL (8.4-10.2); Magnesium 1.5 mg/dL (1.6-2.3); Potassium 3.9 mmol/L (3.5-5.1)
[2022-05-19] MEDS: IPRATROPIUM-ALBUTEROL 3 ML NEB INHALATION SCH ×4 (07:38→20:14)
[2022-05-19] MEDS: FUROSEMIDE 10 MG/ML 2 ML VIAL IV SCH ×2 (08:29→20:05)
[2022-05-19] MEDS: METOPROLOL TARTRATE 50 MG TAB PO SCH ×2 (08:29→20:08)
[2022-05-19] MEDS: MAGNESIUM SULFATE-D5W PMX 1 GM in DEXTROSE/WATER 1 100ML.BAG IVPB SCH ×2 (08:29→10:15)
[2022-05-19] MEDS: AMIODARONE 200 MG TAB PO SCH ×2 (08:29→20:08)
[2022-05-19] MEDS: APIXABAN 5 MG TAB PO SCH ×2 (08:29→20:08)
[2022-05-19] MEDS: SPIRONOLACTONE 25 MG TAB PO SCH (08:30)
[2022-05-19] MEDS: SODIUM CHLORIDE 0.9% 1,000 ML IV SCH (11:04)
--- NOTE | 2022-05-19 12:06 | P.PN ---
Subjective Progress Note Date: 05/19/22 This a 71-year-old female patient with a known history of hypothyroidism, hyperlipidemia, depression, hypertension, osteoarthritis, sleep apnea, obesity, oxygen dependent chronic obstructive pulmonary disease, former smoker. She is using an oxygen at 6 L nasal cannula at baseline. [facility] with complaints of generalized weakness and shortness of breath. She was recently hospitalized for congestive heart failure and new onset atrial fibrillation with RVR status post cardioversion, initiated on Eliquis, cardiomyopathy with ejection fraction 20-25%. Chest x-ray revealed cardiomegaly with chronic changes and left basilar opacity and evidence of fluid volume overload. Improved today compared to yesterday. Sodium 139. Potassium 4.4. BUN 25. Creatinine 0.83. Glucose 168. Troponin 2.05. She's been initiated on DuoNeb inhalations, IV diuretics, dobutamine drip at 5 mcg/kg/m. He is seen today in consultation in the intensive care unit. She is currently awake and alert in no acute distress. She is on 6 L high flow nasal cannula. Breathing a bit easier today compared to yesterday. Currently in sinus rhythm. Urinalysis cloudy with positive nitrates and moderate WBCs and many bacteria. Initiated on ceftriaxone. The patient is seen today 05/18/2022 in follow-up in the intensive care unit. She is currently sitting up in bed. Awake and alert. She is maintaining O2 saturations in the low 90s on 6 L high flow nasal cannula. She is having on going issues with atrial fibrillation with rapid ventricular response. She is on amiodarone drip at 0.5 mg/m. Dobutamine at 2.5 mcg/kg/m. Normal saline at 10 mL per hour. The plan is for cardioversion tomorrow per cardiology. Blood culture reveals no growth. Urine culture reveals no growth. White count 12.5. Hemoglobin 9.8. Platelet 142. Sodium 134. Potassium 5.4. Bicarb 31. BUN 23. Creatinine 0.95. Glucose 114. She is continued on DuoNeb inhalations, antibiotics in the form of ceftriaxone. Remains on IV diuretics. Currently in a -2.2 L balance. Anticoagulated with Eliquis. The patient is seen today 05/19/2022 in follow-up in the intensive care unit. She is awake and alert in no acute distress. Still requiring norepinephrine at 3 mcg/m. Normal saline at 10 mL per hour. She is maintaining good O2 saturations in the 90s on 3 L/m per nasal cannula. chest x-ray continues to revealed cardiomegaly with mild pulmonary vascular congestion. She remains in atrial fibrillation. Continued on amiodarone, beta blockers. Anticoagulated with Eliquis. The plan is for cardioversion per cardiology. Urine cultures positive for gram-negative bacilli. Blood cultures revealing no growth. White count 10.0. Hemoglobin 11.0. Sodium 136. Potassium 3.9. BUN 19. Creatinine 0.82. Glucose 95. Pro-calcitonin 1.34. Continued on ceftriaxone. Remains on IV diuretics. Currently in a -2.2 L balance. Objective - Vital Signs Vital signs: Vital Signs Temp 98.2 F 05/19/22 08:00 Pulse 124 H 05/19/22 11:45 Resp 24 05/19/22 11:45 BP 79/50 05/19/22 11:45 Pulse Ox 97 05/19/22 11:30 FiO2 Intake & Output 05/18/22 05/19/22 05/19/22 18:59 06:59 18:59 Intake Total 1203.090 286.630 363.46 Output Total 600 1350 450 Balance 603.090 -1063.370 -86.54 Weight 89.9 kg Intake: IV 110 120 40 0.9@ 10mls/hr 110 120 20 Sodium Chloride 0.9% 1, 20 000 ml @ 20 mls/hr IV . Q24H [facility] Rx#:[id number] Intake, IV Titration 135.090 166.630 203.46 Amount DOBUTamine DRIP 500 mg In 97.9 Dextrose/Water 1 250ml. bag @ 2.5 MCG/KG/MIN 6.6 mls/hr IV .Q24H [facility] Rx#: [id number] Magnesium Sulfate-D5w Pmx 200 1 gm In Dextrose/Water 1 100ml.bag @ 100 mls/hr IVPB Q1H [facility] Rx#: [id number] Norepinephrine 4 mg In 37.190 166.630 3.46 Sodium Chloride 0.9% 250 ml @ 0.03 MCG/KG/MIN 10. 378 mls/hr IV .Q24H [facility] Rx#:[id number] Oral 958 120 Output: Urine 600 1350 450 Other: Voiding Method External Catheter External Catheter # Voids 1 0 1 # Bowel Movements 1 - Exam GENERAL EXAM: Alert, pleasant 71-year-old female, on 3 L nasal cannula, fairly comfortable in no apparent distress. HEAD: Normocephalic. EYES: Normal reaction of pupils, equal size. NOSE: Clear with pink turbinates. THROAT: No erythema or exudates. NECK: No masses, no JVD. CHEST: No chest wall deformity. LUNGS: Equal air entry with bibasilar crackles. CVS: S1 and S2 normal with no audible murmur, irregular rhythm. ABDOMEN: No hepatosplenomegaly, normal bowel sounds, no guarding or rigidity. SPINE: No scoliosis or deformity SKIN: No rashes CENTRAL NERVOUS SYSTEM: No focal deficits, tone is normal in all 4 extremities. EXTREMITIES: There is no peripheral edema. No clubbing, no cyanosis. Peripheral pulses are intact. - Labs CBC & Chem 7: 05/19/22 06:54 05/19/22 06:54 Labs: Abnormal Lab Results - Last 24 Hours (Table) 05/19/22 05/19/22 Range/Units 06:54 06:54 Hgb 11.0 L (11.4-16.0) gm/dL MCHC 30.3 L (31.0-37.0) g/dL RDW 16.6 H (11.5-15.5) % Sodium 136 L (137-145) mmol/L BUN 19 H (7-17) mg/dL Magnesium 1.5 L (1.6-2.3) mg/dL Microbiology - Last 24 Hours (Table) 05/16/22 20:40 Blood Culture - Preliminary Blood No Growth after 48 hours 05/16/22 20:45 Blood Culture - Preliminary Blood No Growth after 48 hours 05/16/22 21:23 Urine Culture - Preliminary Urine,Voided Gram Neg Bacilli Assessment and Plan Assessment: Acute on chronic hypoxemic respiratory failure secondary to an acute exacer bation of systolic congestive heart failure. Ejection fraction 20-25% Atrial fibrillation, anticoagulated with Eliquis Chronic hypoxemic respiratory failure secondary to chronic obstructive pulmonary disease, on 3 L nasal cannula at home History of chronic tobacco dependence Troponin leak Acute kidney injury, improved Acute urinary tract infection, on ceftriaxone Obesity Hypertension Hyperlipidemia Osteoarthritis Obstructive sleep apnea History of depression Plan: The patient was seen and evaluated Chest x-ray, labs and medications reviewed Remains on oral amiodarone, Yaya Remains on IV diuretics Plan is for cardioversion tomorrow Continue ceftriaxone for UTI Titrate the FiO2 as tolerated We will continue to follow I have personally seen and examined the patient, performed the documentation and the assessment and plan as written. Number of minutes spent on the visit: 10.
--- NOTE | 2022-05-19 14:46 | PN ---
PROGRESS NOTE SUBJECTIVE: Ms. Victor has nonischemic cardiomyopathy. She is in atrial fibrillation, on a small dose of Levophed. I am recommending that we wean off the Levophed, and in view of her persistent atrial fibrillation, in spite of amiodarone, I am recommending electrical cardioversion, requested Dr. Craft to perform procedure tomorrow. Vitals are stable. I explained the electrical cardioversion plan to the patient. She is agreeable. OBJECTIVE: HEART: S1 and S2 heard normally. Tachycardia. Short systolic murmur. LUNGS: Reveal diminished air entry. ABDOMEN: Unchanged. LOWER EXTREMITIES: Unchanged. PLAN: Continue current medical regimen and electrical cardioversion in a.m. The patient is well anticoagulated with Eliquis 5 mg b.i.d. MMODL / IJN: [id number] /
--- NOTE | 2022-05-19 16:53 | P.PN ---
Subjective Progress Note Date: 05/19/22 H&P Date: 05/17/22 Chief Complaint: Increased weakness This is a 71-year-old obese female recently diagnosed /hospitalized in March with new onset atrial fibrillation and multiple other medical issues presented to the ER with increasing weakness especially noted in the legs after episodes of diarrhea. Patient reports she has been compliant with her low- sodium diet but had consumed significant amount of pineapple juice, developed diarrhea. Denies falls, head trauma. Denies syncope. Denies lightheadedness dizziness or focal deficits. Denies chest pain, palpitations or shortness of breath. O2 sat on admission was 86% on room air/91-93% on 6 L nasal cannula(which patient wears at home). Hypotensive on admission, blood pressure 84/43, dropped to 68/30. Denies sickness congestion fevers or chills. Patient had completed cardiology rehab. on the and was scheduled to follow-up with cardiology on Tuesday. Sitting up on a couple pills states it hurts her back to lay flat. Telemetry sinus rhythm. Dobutamine increased and losartan resumed. Levophed drip weaned off earlier this morning. Afebrile, WBC 17, hemoglobin 10.6 platelets 141,INR 1.3. Sodium improved 139, potassium 4.4, bicarb 28, BUN 25, creatinine 0.83. Blood sugars controlled, lactic acid 1.1, magnesium 1.8 after supplementation, troponin is 2.270, 2.320, 2.050. UA reporting many bacteria, moderate wbc's: 226 WBCs large leukocytes and positive nitrates, cul ture in progress. Chest x-ray reported cardiomegaly, mild congestion, CHF and pleural fluid improved compared to prior exam. Echo pending. 05/18/2022 feels better this morning on dobutamine drip. Echo reported mild aortic stenosis,EF of 45-50%, while on dobutamine. Levothroid currently off. A febrile with RVR, continues on amiodarone, anticoagulated on Eliquis. Maintaining O2 sats in the 90s on 6 L nasal cannula. Diuresing well on Lasix IV push diuretics with 24-hour I&O reflecting a negative fluid balance. UTI, continues on on ceftriaxone. Afebrile, and WBC 12.5. Sodium 134, potassium 5.4, chloride 103, bicarb 31, BUN 23, creatinine 0.95. Magnesium 1.5, magnesium replacement protocol as ordered. Objective - Vital Signs Vital signs: Vital Signs Temp 98.2 F 05/18/22 12:00 Pulse 120 H 05/18/22 18:00 Resp 24 05/18/22 18:00 BP 75/63 05/18/22 18:00 Pulse Ox 93 L 05/18/22 18:00 FiO2 Intake & Output 05/17/22 05/18/22 05/18/22 18:59 06:59 18:59 Intake Total 120 572.68 1203.090 Output Total 1500 1400 600 Balance -1380 -827.32 603.090 Weight 90.8 kg Intake: IV 120 120 110 0.9@ 10mls/hr 120 120 110 Intake, IV Titration 452.68 135.090 Amount DOBUTamine DRIP 500 mg In 152.68 97.9 Dextrose/Water 1 250ml. bag @ 2.5 MCG/KG/MIN 6.6 mls/hr IV .Q24H [facility] Rx#: [id number] Magnesium Sulfate-D5w Pmx 300 1 gm In Dextrose/Water 1 100ml.bag @ 100 mls/hr IVPB Q1H [facility] Rx#: [id number] Norepinephrine 4 mg In 37.190 Sodium Chloride 0.9% 250 ml @ 0.03 MCG/KG/MIN 10. 378 mls/hr IV .Q24H [facility] Rx#:[id number] Oral 958 Output: Urine 1500 1400 600 Other: Voiding Method External Catheter External Catheter External Catheter # Voids 1 1 # Bowel Movements 1 - Exam PHYSICAL EXAM: VITAL SIGNS: As above GENERAL: Morbidly obese, sitting up in bed, no acute distress HEENT: Conjunctivae normal. eyes normal. NECK: Supple, No JVD. No thyroid enlargement. No LNs CARDIOVASCULAR: S1, S2,regular.irregular ,No murmur RESPIRATION: Breath sounds diminished with fine crackles in bilateral bases. ABDOMEN: Soft, nontender . No guarding. no masses palpable. Bowel sounds heard. LEGS: No edema, no cyanosis, no clubbing. PSYCHIATRY: Alert and oriented X3, mood and affect normal. NERVOUS SYSTEM: Cranial N 2-12 grossly normal. No focal deficits. Strength and sensation grossly intact. Skin: Warm and dry, no rash. - Labs CBC & Chem 7: 05/19/22 06:54 05/19/22 06:54 Labs: Abnormal Lab Results - Last 24 Hours (Table) 05/17/22 05/18/22 05/18/22 Range/Units 08:28 01:14 01:14 WBC 12.5 H (3.8-10.6) k/uL RBC 3.77 L (3.80-5.40) m/uL Hgb 9.8 L (11.4-16.0) gm/dL Hct 31.7 L (34.0-46.0) % MCHC 30.8 L (31.0-37.0) g/dL RDW 16.5 H (11.5-15.5) % Plt Count 142 L (150-450) k/uL Neutrophils # 10.6 H (1.3-7.7) k/uL Sodium 134 L (137-145) mmol/L Potassium 5.4 H (3.5-5.1) mmol/L Carbon Dioxide 31 H (22-30) mmol/L BUN 23 H (7-17) mg/dL Glucose 114 H (74-99) mg/dL Magnesium 1.5 L (1.6-2.3) mg/dL Procalcitonin 1.34 H (0.02-0.09) ng/mL Microbiology - Last 24 Hours (Table) 05/16/22 21:23 Urine Culture - Preliminary Urine,Voided Gram Neg Bacilli 05/16/22 20:40 Blood Culture - Preliminary Blood No Growth after 24 hours 05/16/22 20:45 Blood Culture - Preliminary Blood No Growth after 24 hours Assessment and Plan Assessment: Acute on chronic hypoxic respiratory failure secondary to acute on chronic CHF, systolic dysfunction, EF 20-25%. Wears 6 L nasal cannula at home. A. fib with RVR in a patient Recently diagnosed New-onset paroximal atrial fibrillation with RVR, s/p successful cardioversion, 03/25. Troponins elevated, cardiology following Acute UTI, culture pending Nonischemic cardiomyopathy, etiology unclear Acute renal insufficiency, contrast-induced. History of Left adrenal mass , large, increased from exam 5 years ago. Further follow-up outpatient with endocrinology. CAD, history of [place] COPD Hypertension Hyperlipidemia Morbid obesity, BMI 33.2 Obstructive sleep apnea Plan: Continue on current medication regime ,monitoring and symptomatic treatment. Cardioversion planned within the next 48 hours. ICU management as per [place]. Maintain Ceftriaxone for acute UTI, culture finalizing, diuretics. Prognosis guarded given multiple complex medical issues. The impression and plan of care has been dictated as directed. : I performed a history and examination of this patient, discussed the same with the dictator. I agree with the dictator's note ,documented as a scribe. Any additional findings or plans will be noted.
--- NOTE | 2022-05-19 17:04 | P.PN ---
Subjective Progress Note Date: 05/19/22 H&P Date: 05/17/22 Chief Complaint: Increased weakness This is a 71-year-old obese female recently diagnosed /hospitalized in March with new onset atrial fibrillation and multiple other medical issues presented to the ER with increasing weakness especially noted in the legs after episodes of diarrhea. Patient reports she has been compliant with her low- sodium diet but had consumed significant amount of pineapple juice, developed diarrhea. Denies falls, head trauma. Denies syncope. Denies lightheadedness dizziness or focal deficits. Denies chest pain, palpitations or shortness of breath. O2 sat on admission was 86% on room air/91-93% on 6 L nasal cannula(which patient wears at home). Hypotensive on admission, blood pressure 84/43, dropped to 68/30. Denies sickness congestion fevers or chills. Patient had completed cardiology rehab. on the and was scheduled to follow-up with cardiology on Tuesday. Sitting up on a couple pills states it hurts her back to lay flat. Telemetry sinus rhythm. Dobutamine increased and losartan resumed. Levophed drip weaned off earlier this morning. Afebrile, WBC 17, hemoglobin 10.6 platelets 141,INR 1.3. Sodium improved 139, potassium 4.4, bicarb 28, BUN 25, creatinine 0.83. Blood sugars controlled, lactic acid 1.1, magnesium 1.8 after supplementation, troponin is 2.270, 2.320, 2.050. UA reporting many bacteria, moderate wbc's: 226 WBCs large leukocytes and positive nitrates, cul ture in progress. Chest x-ray reported cardiomegaly, mild congestion, CHF and pleural fluid improved compared to prior exam. Echo pending. 05/18/2022 feels better this morning on dobutamine drip. Echo reported mild aortic stenosis,EF of 45-50%, while on dobutamine. Levothroid currently off. A febrile with RVR, continues on amiodarone, anticoagulated on Eliquis. Maintaining O2 sats in the 90s on 6 L nasal cannula. Diuresing well on Lasix IV push diuretics with 24-hour I&O reflecting a negative fluid balance. UTI, continues on on ceftriaxone. Afebrile, and WBC 12.5. Sodium 134, potassium 5.4, chloride 103, bicarb 31, BUN 23, creatinine 0.95. Magnesium 1.5, magnesium replacement protocol as ordered. 05/19/2022 maintained on Levophed. Continues in atrial fibrillation, tachyca rdic, on amiodarone and beta vannesa. Continues diuresing well on IV push diuretics with 24-hour I&O reflecting a negative fluid balance. Chest x-ray reporting similar cardiomegaly, mild pulmonary vascular congestion.Maintaining O2 sats in the low 90s on 3 L nasal cannula. Renal function stable.Afebrile, normal WBC. Objective - Vital Signs Vital signs: Vital Signs Temp 98.3 F 05/19/22 16:00 Pulse 129 H 05/19/22 16:00 Resp 23 05/19/22 16:00 BP 78/53 05/19/22 16:00 Pulse Ox 95 05/19/22 16:00 FiO2 Intake & Output 05/18/22 05/19/22 05/19/22 18:59 06:59 18:59 Intake Total 1203.090 286.630 877.804 Output Total 600 1350 650 Balance 603.090 -1063.370 227.804 Weight 89.9 kg Intake: IV 110 120 140 0.9@ 10mls/hr 110 120 20 Sodium Chloride 0.9% 1, 120 000 ml @ 20 mls/hr IV . Q24H [facility] Rx#:[id number] Intake, IV Titration 135.090 166.630 267.804 Amount DOBUTamine DRIP 500 mg In 97.9 Dextrose/Water 1 250ml. bag @ 2.5 MCG/KG/MIN 6.6 mls/hr IV .Q24H [facility] Rx#: [id number] Magnesium Sulfate-D5w Pmx 200 1 gm In Dextrose/Water 1 100ml.bag @ 100 mls/hr IVPB Q1H [facility] Rx#: [id number] Norepinephrine 4 mg In 37.190 166.630 67.804 Sodium Chloride 0.9% 250 ml @ 0.03 MCG/KG/MIN 10. 378 mls/hr IV .Q24H [facility] Rx#:[id number] Oral 958 470 Output: Urine 600 1350 650 Other: Voiding Method External Catheter External Catheter External Catheter # Voids 1 0 1 # Bowel Movements 1 - Exam PHYSICAL EXAM: VITAL SIGNS: As above GENERAL: sitting up in bed, no acute distress HEENT: Conjunctivae normal. eyes normal. NECK: Supple, No JVD. CARDIOVASCULAR: S1, S2,regular.irregular ,No murmur RESPIRATION: Breath sounds diminished with fine crackles in bilateral bases. ABDOMEN: Soft, nontender . No guarding. no masses palpable. Bowel sounds heard. LEGS: No edema, no cyanosis, no clubbing. PSYCHIATRY: Alert and oriented X3, mood and affect normal. NERVOUS SYSTEM: Cranial N 2-12 grossly normal. No focal deficits. Strength and sensation grossly intact. Skin: Warm and dry, no rash. - Labs CBC & Chem 7: 05/19/22 06:54 05/19/22 06:54 Labs: Abnormal Lab Results - Last 24 Hours (Table) 05/19/22 05/19/22 Range/Units 06:54 06:54 Hgb 11.0 L (11.4-16.0) gm/dL MCHC 30.3 L (31.0-37.0) g/dL RDW 16.6 H (11.5-15.5) % Sodium 136 L (137-145) mmol/L BUN 19 H (7-17) mg/dL Magnesium 1.5 L (1.6-2.3) mg/dL Microbiology - Last 24 Hours (Table) 05/16/22 21:23 Urine Culture - Final Urine,Voided Escherichia coli 05/16/22 20:40 Blood Culture - Preliminary Blood No Growth after 48 hours 05/16/22 20:45 Blood Culture - Preliminary Blood No Growth after 48 hours Assessment and Plan Assessment: Acute on chronic hypoxic respiratory failure secondary to acute on chronic CHF, systolic dysfunction, EF 20-25%. Wears 6 L nasal cannula at home. A. fib with RVR in a patient Recently diagnosed New-onset paroximal atrial fibrillation with RVR, s/p successful cardioversion, 03/25. Troponins elevated, cardiology following Acute UTI, with E. coli Nonischemic cardiomyopathy, etiology unclear Acute renal insufficiency, contrast-induced. History of Left adrenal mass , large, increased from exam 5 years ago. Further follow-up outpatient with endocrinology. CAD, history of [place] COPD Hypertension Hyperlipidemia Morbid obesity, BMI 33.2 Obstructive sleep apnea Plan: Continue on current medication regime ,monitoring and symptomatic treatment. IV push diuretics. Antiarrhythmics as per cardiology -Cardioversion planned for tomorrow. 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 Maintain Ceftriaxone for acute UTI, culture finalizing. Prognosis guarded given multiple complex medical issues. The impression and plan of care has been dictated as directed. : I performed a history and examination of this patient, discussed the same with the dictator. I agree with the dictator's note ,documented as a scribe. Any additional findings or plans will be noted.
[2022-05-20] MEDS: IPRATROPIUM-ALBUTEROL 3 ML NEB INHALATION SCH ×4 (07:26→21:17)
[2022-05-20] MEDS ORDERED: PROPOFOL 10 MG/ML 20 ML VIAL IV ONE (08:45)
[2022-05-20] MEDS ORDERED: KETAMINE 10 MG/ML 20 ML VIAL ONE (08:45)
--- NOTE | 2022-05-20 09:17 | P.PCN ---
Date of Procedure: 05/20/22 Description of Procedure: Indication: Atrial flutter Procedure Description: After explaining the procedure to the patient, it's risk and complications, blood pressure, heart rate and O2 saturation were monitored. The throat was sprayed with Cetacaine. Patient received sedation per anesthesia department. The probe was introduced into the esophagus without difficulty. Images were obtained. Following that, the probe was removed. There was no immediate complication. Findings: Left atrial size is mildly dilated, left atrial appendage is normal. The ventricle size is normal. Ejection fraction 35-40% with global hypokinesis. Mild calcification of the mitral valve was noted, the aortic and tricuspid valve appears to be normal. Descending thoracic aorta revealed mild to moderate atherosclerotic changes. No pericardial effusion was noted. Contrast bubble study revealed no shunting across the intra-atrial septum. Doppler: Pulse wave and color Doppler were obtained, mild mitral and tricuspid regurgitation, there was no shunting by color Doppler study. Conclusion: 1. Mildly dilated left atrium with normal appearance of the left atrial appendage 2. Moderate global hypokinesis of the left ventricle 3. Mild mitral and tricuspid regurgitation 4. No shunting across the intra-atrial septum 5. Mild to moderate atherosclerotic changes of the descending thoracic aorta. Cardioversion: After performing a CHINO the synchronized biphasic cardioversion using 150 J was performed with muslim of sinus mechanism. There was no immediate complication.
[2022-05-20 09:45] LABS: Calcium 8.6 mg/dL (8.4-10.2); Magnesium 1.8 mg/dL (1.6-2.3); Potassium 3.5 mmol/L (3.5-5.1)
[2022-05-20] MEDS: FUROSEMIDE 10 MG/ML 2 ML VIAL IV SCH ×2 (09:47→20:11)
[2022-05-20] MEDS: AMIODARONE 200 MG TAB PO SCH ×2 (09:47→20:11)
[2022-05-20] MEDS: SPIRONOLACTONE 25 MG TAB PO SCH (09:47)
[2022-05-20] MEDS: APIXABAN 5 MG TAB PO SCH ×2 (09:47→20:11)
[2022-05-20] MEDS: SODIUM CHLORIDE 0.9% 1,000 ML IV SCH ×2 (09:48→10:56)
[2022-05-20] MEDS: METOPROLOL TARTRATE 50 MG TAB PO SCH ×2 (09:48→20:11)
[2022-05-20] MEDS: ATORVASTATIN 40 MG TAB PO SCH (09:51)
[2022-05-20] MEDS: DAPAGLIFLOZIN PROPANEDIOL 10 MG TABLET PO SCH (09:51)
[2022-05-20 10:14] LABS: Anisocytosis Slight; Basophils % (A) 0 %; Eosinophils # (A) 0.2 k/uL (0-0.7); Eosinophils % (A) 3 %; HCT 36.8 % (34.0-46.0); Hypochromasia Marked; Lymphocytes # (A) 2.3 k/uL (1.0-4.8); Lymphocytes % (A) 28 %; MCH 25.5 pg (25.0-35.0); MCHC 29.9 g/dL (31.0-37.0); MCV 85.2 fL (80.0-100.0); Mean Platelet Volume 10.9; Monocytes # (A) 0.4 k/uL (0-1.0); Monocytes % (A) 5 %; Neutrophils # (A) 5.2 k/uL (1.3-7.7); Neutrophils % (A) 62 %; Platelet Count 176 k/uL (150-450); RBC 4.32 m/uL (3.80-5.40); RDW 16.2 % (11.5-15.5); WBC 8.3 k/uL (3.8-10.6)
[2022-05-20] MEDS ORDERED: Potassium Replacement Protocol 1 EACH MISC MISCELLANE PRN (10:16)
[2022-05-20] MEDS ORDERED: Magnesium Replacement Protocol 1 EACH MISC MISCELLANE PRN (10:17)
--- NOTE | 2022-05-20 10:20 | PN ---
PROGRESS NOTE SUBJECTIVE: This is a 71-year-old lady with a nonischemic cardiomyopathy, who also has persistent atrial fibrillation, and in March, she underwent electrical cardioversion. She came into the hospital with hypotension, feeling weak, tired, and exhausted. She is still on a small dose of Levophed and also on amiodarone drip. Her rhythm today is atrial flutter with a 3:1 block, rate is about 110 per minute. She is going for electrical cardioversion to be performed by Dr. Craft around 9 a.m. today. We will continue the Levophed for the time being and proceed with the procedure. OBJECTIVE: VITAL SIGNS: Physical exam revealed that blood pressure is 100/60, pulse rate is 118 per minute. NECK: JVD 1 cm. No carotid bruit. HEART: S1, S2 with tachycardia. Short systolic murmur. LUNGS: Reveal fair air entry. ABDOMEN: Unchanged. LOWER EXTREMITIES: Unchanged. IMPRESSION: 1. Persistent atrial flutter/fibrillation. 2. Nonischemic cardiomyopathy. 3. History of possible urinary tract infection, although it is unclear. RECOMMENDATIONS: Electrical cardioversion today. MMODL / IJN: [id number] /
[2022-05-20] MEDS: MAGNESIUM SULFATE-D5W PMX 1 GM in DEXTROSE/WATER 1 100ML.BAG IVPB SCH ×2 (10:55→11:58)
[2022-05-20] MEDS: POTASSIUM CHLORIDE 20 MEQ in WATER FOR INJECTION 1 100ML.BAG IVPB SCH ×3 (10:55→16:05)
--- NOTE | 2022-05-20 11:15 | P.PN ---
Subjective Progress Note Date: 05/20/22 This a 71-year-old female patient with a known history of hypothyroidism, hyperlipidemia, depression, hypertension, osteoarthritis, sleep apnea, obesity, oxygen dependent chronic obstructive pulmonary disease, former smoker. She is using an oxygen at 6 L nasal cannula at baseline. [facility] yesterday with complaints of generalized weakness and shortness of breath. She was recently hospitalized for congestive heart failure and new onset atrial fibrillation with RVR status post cardioversion, initiated on Eliquis, cardiomyopathy with ejection fraction 20-25%. Chest x-ray revealed cardiomegaly with chronic changes and left basilar opacity and evidence of fluid volume overload. Improved today compared to yesterday. Sodium 139. Potassium 4.4. BUN 25. Creatinine 0.83. Glucose 168. Troponin 2.05. She's been initiated on DuoNeb inhalations, IV diuretics, dobutamine drip at 5 mcg/kg/m. He is seen today in consultation in the intensive care unit. She is currently awake and alert in no acute distress. She is on 6 L high flow nasal cannula. Breathing a bit easier today compared to yesterday. Currently in sinus rhythm. Urinalysis cloudy with positive nitrates and moderate WBCs and many bacteria. Initiated on ceftriaxone. The patient is seen today 05/18/2022 in follow-up in the intensive care unit. She is currently sitting up in bed. Awake and alert. She is maintaining O2 saturations in the low 90s on 6 L high flow nasal cannula. She is having on going issues with atrial fibrillation with rapid ventricular response. She is on amiodarone drip at 0.5 mg/m. Dobutamine at 2.5 mcg/kg/m. Normal saline at 10 mL per hour. The plan is for cardioversion tomorrow per cardiology. Blood culture reveals no growth. Urine culture reveals no growth. White count 12.5. Hemoglobin 9.8. Platelet 142. Sodium 134. Potassium 5.4. Bicarb 31. BUN 23. Creatinine 0.95. Glucose 114. She is continued on DuoNeb inhalations, antibiotics in the form of ceftriaxone. Remains on IV diuretics. Currently in a -2.2 L balance. Anticoagulated with Eliquis. The patient is seen today 05/19/2022 in follow-up in the intensive care unit. She is awake and alert in no acute distress. Still requiring norepinephrine at 3 mcg/m. Normal saline at 10 mL per hour. She is maintaining good O2 saturations in the 90s on 3 L/m per nasal cannula. chest x-ray continues to revealed cardiomegaly with mild pulmonary vascular congestion. She remains in atrial fibrillation. Continued on amiodarone, beta blockers. Anticoagulated with Eliquis. The plan is for cardioversion per cardiology. Urine cultures positive for gram-negative bacilli. Blood cultures revealing no growth. White count 10.0. Hemoglobin 11.0. Sodium 136. Potassium 3.9. BUN 19. Creatinine 0.82. Glucose 95. Pro-calcitonin 1.34. Continued on ceftriaxone. Remains on IV diuretics. Currently in a -2.2 L balance. The patient is seen today 05/20/2022 in follow-up in the intensive care unit. She is currently slightly sedated. She had just undergone a CHINO with subsequent cardioversion with 150 J 1. Currently in normal sinus rhythm. He did receive 20 of ketamine and 40 g of propofol for the procedure. She continues to maintain good O2 saturations in the 90s on 5 L/m per nasal cannula. She has normal saline at 20 miles per hour. She is continued on norepinephrine at 2.7 mcg/m. Anticoagulated with Eliquis. She remains on IV diuretics, bronchodilators. On ceftriaxone for E. coli UTI. White count 8.3. Hemoglobin 11.2. Sodium 139. Potassium 3.5. Bicarb 32. BUN 19. Creatinine 0.94. Objective - Vital Signs Vital signs: Vital Signs Temp 98 F 05/20/22 08:00 Pulse 64 05/20/22 10:00 Resp 16 05/20/22 10:00 BP 106/59 05/20/22 10:00 Pulse Ox 97 05/20/22 10:00 FiO2 Intake & Output 05/19/22 05/20/22 05/20/22 18:59 06:59 18:59 Intake Total 917.804 464.752 221.800 Output Total 750 1200 Balance 167.804 -735.248 221.800 Weight 91.4 kg Intake: IV 180 240 80 0.9@ 10mls/hr 20 Sodium Chloride 0.9% 1, 160 240 80 000 ml @ 20 mls/hr IV . Q24H [facility] Rx#:[id number] Intake, IV Titration 267.804 224.752 41.800 Amount Magnesium Sulfate-D5w Pmx 200 1 gm In Dextrose/Water 1 100ml.bag @ 100 mls/hr IVPB Q1H [facility] Rx#: [id number] Norepinephrine 4 mg In 67.804 224.752 41.800 Sodium Chloride 0.9% 250 ml @ 0.03 MCG/KG/MIN 10. 378 mls/hr IV .Q24H [facility] Rx#:[id number] Oral 470 100 Output: Urine 750 1200 Other: Voiding Method External Catheter External Catheter External Catheter # Voids 1 0 0 # Bowel Movements 1 - Exam GENERAL EXAM: Lightly sedated, 71-year-old female, on 5 L nasal cannula, fairly comfortable in no apparent distress. HEAD: Normocephalic. EYES: Normal reaction of pupils, equal size. NOSE: Clear with pink turbinates. THROAT: No erythema or exudates. NECK: No masses, no JVD. CHEST: No chest wall deformity. LUNGS: Equal air entry with bibasilar crackles. CVS: S1 and S2 normal with no audible murmur, irregular rhythm. ABDOMEN: No hepatosplenomegaly, normal bowel sounds, no guarding or rigidity. SPINE: No scoliosis or deformity SKIN: No rashes CENTRAL NERVOUS SYSTEM: No focal deficits, tone is normal in all 4 extremities. EXTREMITIES: There is no peripheral edema. No clubbing, no cyanosis. Peripheral pulses are intact. - Labs CBC & Chem 7: 05/20/22 08:18 05/20/22 08:18 Labs: Abnormal Lab Results - Last 24 Hours (Table) 05/20/22 05/20/22 Range/Units 08:18 08:18 Hgb 11.0 L (11.4-16.0) gm/dL MCHC 29.9 L (31.0-37.0) g/dL RDW 16.2 H (11.5-15.5) % Carbon Dioxide 32 H (22-30) mmol/L BUN 19 H (7-17) mg/dL Microbiology - Last 24 Hours (Table) 05/16/22 20:45 Blood Culture - Preliminary Blood No Growth after 72 hours 05/16/22 20:40 Blood Culture - Preliminary Blood No Growth after 72 hours 05/16/22 21:23 Urine Culture - Final Urine,Voided Escherichia coli Assessment and Plan Assessment: Acute on chronic hypoxemic respiratory failure secondary to an acute exacerbation of systolic congestive heart failure. Ejection fraction 20-25% Atrial fibrillation, anticoagulated with Eliquis. CHINO/cardioversion today 05/20/2022 with conversion to sinus rhythm. Chronic hypoxemic respiratory failure secondary to chronic obstructive pulmonary disease, on 3 L nasal cannula at home History of chronic tobacco dependence Troponin leak Acute kidney injury, improved Acute urinary tract infection secondary to E. coli, on ceftriaxone Obesity Hypertension Hyperlipidemia Osteoarthritis Obstructive sleep apnea History of depression Plan: The patient was seen and evaluated Labs and medications reviewed Remains on oral amiodarone, Eliquis Remains on IV diuretics Cardioverted to sinus rhythm today Continue ceftriaxone for UTI Titrate the FiO2 as tolerated We will continue to follow I have personally seen and examined the patient, performed the documentation and the assessment and plan as written. Number of minutes spent on the visit: 10.
--- NOTE | 2022-05-20 17:16 | P.PN ---
Subjective Progress Note Date: 05/20/22 H&P Date: 05/17/22 Chief Complaint: Increased weakness This is a 71-year-old obese female recently diagnosed /hospitalized in March with new onset atrial fibrillation and multiple other medical issues presented to the ER with increasing weakness especially noted in the legs after episodes of diarrhea. Patient reports she has been compliant with her low- sodium diet but had consumed significant amount of pineapple juice, developed diarrhea. Denies falls, head trauma. Denies syncope. Denies lightheadedness dizziness or focal deficits. Denies chest pain, palpitations or shortness of breath. O2 sat on admission was 86% on room air/91-93% on 6 L nasal cannula(which patient wears at home). Hypotensive on admission, blood pressure 84/43, dropped to 68/30. Denies sickness congestion fevers or chills. Patient had completed cardiology rehab. on the and was scheduled to follow-up with cardiology on Tuesday. Sitting up on a couple pills states it hurts her back to lay flat. Telemetry sinus rhythm. Dobutamine increased and losartan resumed. Levophed drip weaned off earlier this morning. Afebrile, WBC 17, hemoglobin 10.6 platelets 141,INR 1.3. Sodium improved 139, potassium 4.4, bicarb 28, BUN 25, creatinine 0.83. Blood sugars controlled, lactic acid 1.1, magnesium 1.8 after supplementation, troponin is 2.270, 2.320, 2.050. UA reporting many bacteria, moderate wbc's: 226 WBCs large leukocytes and positive nitrates, cul ture in progress. Chest x-ray reported cardiomegaly, mild congestion, CHF and pleural fluid improved compared to prior exam. Echo pending. 05/18/2022 feels better this morning on dobutamine drip. Echo reported mild aortic stenosis,EF of 45-50%, while on dobutamine. Levothroid currently off. A febrile with RVR, continues on amiodarone, anticoagulated on Eliquis. Maintaining O2 sats in the 90s on 6 L nasal cannula. Diuresing well on Lasix IV push diuretics with 24-hour I&O reflecting a negative fluid balance. UTI, continues on on ceftriaxone. Afebrile, and WBC 12.5. Sodium 134, potassium 5.4, chloride 103, bicarb 31, BUN 23, creatinine 0.95. Magnesium 1.5, magnesium replacement protocol as ordered. 05/19/2022 maintained on Levophed. Continues in atrial fibrillation, tachyca rdic, on amiodarone and beta vannesa. Continues diuresing well on IV push diuretics with 24-hour I&O reflecting a negative fluid balance. Chest x-ray reporting similar cardiomegaly, mild pulmonary vascular congestion.Maintaining O2 sats in the low 90s on 3 L nasal cannula. Renal function stable.Afebrile, normal WBC. 05/20/2022 just returning from CHINO with successful cardioversion, 150J X 1; telemetry sinus rhythm. Maintained on the Levophed. Feels better. Continues on nebulized bronchodilators, IV diuretics. Bicarb 32, creatinine 0.94.Maintaining O2 sats in the 90s on 5 L nasal cannula. Maintained on ceftriaxone for E. coli UTI, afebrile, WBC within normal limits Objective - Vital Signs Vital signs: Vital Signs Temp 98.4 F 05/20/22 16:00 Pulse 66 05/20/22 16:11 Resp 18 05/20/22 16:00 BP 94/46 05/20/22 16:00 Pulse Ox 93 L 05/20/22 16:00 FiO2 Intake & Output 05/19/22 05/20/22 05/20/22 18:59 06:59 18:59 Intake Total 917.804 280.588 4578.155 Output Total 750 1200 1050 Balance 167.804 -735.248 146.155 Weight 91.4 kg Intake: IV 180 240 200 0.9@ 10mls/hr 20 Sodium Chloride 0.9% 1, 160 240 200 000 ml @ 20 mls/hr IV . Q24H [facility] Rx#:[id number] Intake, IV Titration 267.804 224.752 556.155 Amount Magnesium Sulfate-D5w Pmx 200 1 gm In Dextrose/Water 1 100ml.bag @ 100 mls/hr IVPB Q1H [facility] Rx#: [id number] Magnesium Sulfate-D5w Pmx 200 1 gm In Dextrose/Water 1 100ml.bag @ 100 mls/hr IVPB Q1H [facility] Rx#: [id number] Norepinephrine 4 mg In 67.804 224.752 56.155 Sodium Chloride 0.9% 250 ml @ 0.03 MCG/KG/MIN 10. 378 mls/hr IV .Q24H [facility] Rx#:[id number] Potassium Chloride 20 meq 300 In Water For Injection 1 100ml.bag @ 50 mls/hr IVPB Q2H [facility] Rx#: [id number] Oral 470 440 Output: Urine 750 1200 1050 Other: Voiding Method External Catheter External Catheter External Catheter # Voids 1 0 0 # Bowel Movements 1 - Exam PHYSICAL EXAM: VITAL SIGNS: As above GENERAL: sitting up in bed, no acute distress HEENT: Conjunctivae normal. eyes normal. NECK: Supple, No JVD. CARDIOVASCULAR: S1, S2,regular ,No murmur RESPIRATION: Breath sounds diminished with fine crackles in bilateral bases. ABDOMEN: Soft, nontender . No guarding. no masses palpable. Bowel sounds heard. LEGS: No edema, no cyanosis, no clubbing. PSYCHIATRY: Alert and oriented X3, mood and affect normal. NERVOUS SYSTEM: Cranial N 2-12 grossly normal. No focal deficits. Strength and sensation grossly intact. Skin: Warm and dry, no rash. - Labs CBC & Chem 7: 05/20/22 08:18 05/20/22 08:18 Labs: Abnormal Lab Results - Last 24 Hours (Table) 05/20/22 05/20/22 Range/Units 08:18 08:18 Hgb 11.0 L (11.4-16.0) gm/dL MCHC 29.9 L (31.0-37.0) g/dL RDW 16.2 H (11.5-15.5) % Carbon Dioxide 32 H (22-30) mmol/L BUN 19 H (7-17) mg/dL Microbiology - Last 24 Hours (Table) 05/16/22 20:45 Blood Culture - Preliminary Blood No Growth after 72 hours 05/16/22 20:40 Blood Culture - Preliminary Blood No Growth after 72 hours 05/16/22 21:23 Urine Culture - Final Urine,Voided Escherichia coli Assessment and Plan Assessment: Acute on chronic hypoxic respiratory failure secondary to acute on chronic CHF, systolic dysfunction, EF 20-25%. Wears 6 L nasal cannula at home. A. fib with RVR in a patient Recently diagnosed New-onset paroximal atrial fibrillation with RVR, s/p successful cardioversion, 03/25. CHINO/successful cardioversion 05/20/2022 Troponins elevated, cardiology following Acute UTI, with E. coli Nonischemic cardiomyopathy, etiology unclear Acute renal insufficiency, contrast-induced. History of Left adrenal mass , large, increased from exam 5 years ago. Further follow-up outpatient with endocrinology. CAD, history of ME COPD Hypertension Hyperlipidemia Morbid obesity, BMI 33.2 Obstructive sleep apnea Plan: Continue on current medication regime ,monitoring and symptomatic treatment. Antiarrhythmics, IV diuretics as per cardiology. 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 Ceftriaxone for acute UTI. Prognosis guarded given multiple complex medical issues. The impression and plan of care has been dictated as directed. : I performed a history and examination of this patient, discussed the same with the dictator. I agree with the dictator's note ,documented as a scribe. Any additional findings or plans will be noted.
[2022-05-20] MEDS: NOREPINEPHRINE 4 MG in SODIUM CHLORIDE 0.9% 250 ML IV SCH (22:27)
[2022-05-21 06:50] LABS: Calcium 8.3 mg/dL (8.4-10.2); Potassium 3.9 mmol/L (3.5-5.1)
[2022-05-21] MEDS: FUROSEMIDE 10 MG/ML 2 ML VIAL IV SCH ×2 (08:13→20:32)
[2022-05-21] MEDS: MAGNESIUM SULFATE-D5W PMX 1 GM in DEXTROSE/WATER 1 100ML.BAG IVPB SCH ×2 (08:13→09:57)
[2022-05-21] MEDS: POTASSIUM CHLORIDE 10 MEQ in WATER FOR INJECTION 1 100ML.BAG IVPB SCH ×2 (08:13→09:56)
[2022-05-21] MEDS: IPRATROPIUM-ALBUTEROL 3 ML NEB INHALATION SCH ×4 (08:19→21:48)
[2022-05-21] MEDS: APIXABAN 5 MG TAB PO SCH ×2 (08:40→20:32)
[2022-05-21] MEDS: DAPAGLIFLOZIN PROPANEDIOL 10 MG TABLET PO SCH (08:40)
[2022-05-21] MEDS: ATORVASTATIN 40 MG TAB PO SCH (08:40)
[2022-05-21] MEDS: SPIRONOLACTONE 25 MG TAB PO SCH (08:41)
[2022-05-21] MEDS: AMIODARONE 200 MG TAB PO SCH ×2 (08:41→20:32)
[2022-05-21] MEDS: METOPROLOL TARTRATE 50 MG TAB PO SCH (08:41)
[2022-05-21] MEDS: SODIUM CHLORIDE 0.9% 1,000 ML IV SCH ×2 (09:58)
--- NOTE | 2022-05-21 10:57 | P.PN ---
Subjective Progress Note Date: 05/21/22 This a 71-year-old female patient with a known history of hypothyroidism, hyperlipidemia, depression, hypertension, osteoarthritis, sleep apnea, obesity, oxygen dependent chronic obstructive pulmonary disease, former smoker. She is using an oxygen at 6 L nasal cannula at baseline. [facility] with complaints of generalized weakness and shortness of breath. She was recently hospitalized for congestive heart failure and new onset atrial fibrillation with RVR status post cardioversion, initiated on Eliquis, cardiomyopathy with ejection fraction 20-25%. Chest x-ray revealed cardiomegaly with chronic changes and left basilar opacity and evidence of fluid volume overload. Improved today compared to yesterday. Sodium 139. Potassium 4.4. BUN 25. Creatinine 0.83. Glucose 168. Troponin 2.05. She's been initiated on DuoNeb inhalations, IV diuretics, dobutamine drip at 5 mcg/kg/m. He is seen today in consultation in the intensive care unit. She is currently awake and alert in no acute distress. She is on 6 L high flow nasal cannula. Breathing a bit easier today compared to yesterday. Currently in sinus rhythm. Urinalysis cloudy with positive nitrates and moderate WBCs and many bacteria. Initiated on ceftriaxone. The patient is seen today 05/18/2022 in follow-up in the intensive care unit. She is currently sitting up in bed. Awake and alert. She is maintaining O2 saturations in the low 90s on 6 L high flow nasal cannula. She is having on going issues with atrial fibrillation with rapid ventricular response. She is on amiodarone drip at 0.5 mg/m. Dobutamine at 2.5 mcg/kg/m. Normal saline at 10 mL per hour. The plan is for cardioversion tomorrow per cardiology. Blood culture reveals no growth. Urine culture reveals no growth. White count 12.5. Hemoglobin 9.8. Platelet 142. Sodium 134. Potassium 5.4. Bicarb 31. BUN 23. Creatinine 0.95. Glucose 114. She is continued on DuoNeb inhalations, antibiotics in the form of ceftriaxone. Remains on IV diuretics. Currently in a -2.2 L balance. Anticoagulated with Eliquis. The patient is seen today 05/19/2022 in follow-up in the intensive care unit. She is awake and alert in no acute distress. Still requiring norepinephrine at 3 mcg/m. Normal saline at 10 mL per hour. She is maintaining good O2 saturations in the 90s on 3 L/m per nasal cannula. chest x-ray continues to revealed cardiomegaly with mild pulmonary vascular congestion. She remains in atrial fibrillation. Continued on amiodarone, beta blockers. Anticoagulated with Eliquis. The plan is for cardioversion per cardiology. Urine cultures positive for gram-negative bacilli. Blood cultures revealing no growth. White count 10.0. Hemoglobin 11.0. Sodium 136. Potassium 3.9. BUN 19. Creatinine 0.82. Glucose 95. Pro-calcitonin 1.34. Continued on ceftriaxone. Remains on IV diuretics. Currently in a -2.2 L balance. The patient is seen today 05/20/2022 in follow-up in the intensive care unit. She is currently slightly sedated. She had just undergone a CHINO with subsequent cardioversion with 150 J 1. Currently in normal sinus rhythm. He did receive 20 of ketamine and 40 g of propofol for the procedure. She continues to maintain good O2 saturations in the 90s on 5 L/m per nasal cannula. She has normal saline at 20 miles per hour. She is continued on norepinephrine at 2.7 mcg/m. Anticoagulated with Eliquis. She remains on IV diuretics, bronchodilators. On ceftriaxone for E. coli UTI. White count 8.3. Hemoglobin 11.2. Sodium 139. Potassium 3.5. Bicarb 32. BUN 19. Creatinine 0.94. The patient is seen today 05/21/2022 in follow-up in the intensive care unit. She is sitting up in bed. Awake and alert in no acute distress. She remains in sinus rhythm. She is status post cardioversion yesterday. She denies any chest discomfort, palpitations. No worsening shortness of breath cough or congestion. She is still requiring norepinephrine at 2.8 mcg/m to maintain mean arterial pressures greater than 60. She is on 3 L nasal cannula with good O2 saturations in the 90s. 0.9 normal saline at KVO. Urine culture is positive for E. coli. Blood cultures revealed no growth. Sodium 135. Potassium 3.9. Bicarb 29. BUN 18. Creatinine 0.94. Glucose 100. She is continued on ceftriaxone along with bronchodilators. She is on oral amiodarone. Anticoagulated with Eliquis. Remains on IV diuretics. Currently in a -560 ML balance. Objective - Vital Signs Vital signs: Vital Signs Temp 98.4 F 05/21/22 08:00 Pulse 49 L 05/21/22 10:00 Resp 16 05/21/22 10:00 BP 102/55 05/21/22 10:00 Pulse Ox 96 05/21/22 10:00 FiO2 Intake & Output 05/20/22 05/21/22 05/21/22 18:59 06:59 18:59 Intake Total 1510.748 357.285 855.038 Output Total 2922 646 9430 Balance 460.748 -633.715 -169.962 Weight 94.8 kg Intake: IV 240 290 60 Sodium Chloride 0.9% 1, 240 240 60 000 ml @ 20 mls/hr IV . Q24H [facility] Rx#:[id number] cefTRIAXone 2 gm In 50 Sodium Chloride 0.9% 50 ml @ 100 mls/hr IVPB HS [facility] Rx#:[id number] Intake, IV Titration 590.748 67.285 555.038 Amount Magnesium Sulfate-D5w Pmx 200 1 gm In Dextrose/Water 1 100ml.bag @ 100 mls/hr IVPB Q1H [facility] Rx#: [id number] Magnesium Sulfate-D5w Pmx 200 1 gm In Dextrose/Water 1 100ml.bag @ 100 mls/hr IVPB Q1H [facility] Rx#: [id number] Norepinephrine 4 mg In 90.748 67.285 155.038 Sodium Chloride 0.9% 250 ml @ 0.03 MCG/KG/MIN 10. 378 mls/hr IV .Q24H [facility] Rx#:[id number] Potassium Chloride 10 meq 200 In Water For Injection 1 100ml.bag @ 100 mls/hr IVPB Q1H [facility] Rx#: [id number] Potassium Chloride 20 meq 300 In Water For Injection 1 100ml.bag @ 50 mls/hr IVPB Q2H [facility] Rx#: [id number] Oral 680 240 Output: Urine 4632 719 8534 Other: Voiding Method External Catheter External Catheter External Catheter # Voids 0 0 - Exam GENERAL EXAM: Awake, alert very pleasant, 71-year-old female, on 3 L nasal cannula, fairly comfortable in no apparent distress. HEAD: Normocephalic. EYES: Normal reaction of pupils, equal size. NOSE: Clear with pink turbinates. THROAT: No erythema or exudates. NECK: No masses, no JVD. CHEST: No chest wall deformity. LUNGS: Equal air entry with bibasilar crackles. CVS: S1 and S2 normal with no audible murmur, irregular rhythm. ABDOMEN: No hepatosplenomegaly, normal bowel sounds, no guarding or rigidity. SPINE: No scoliosis or deformity SKIN: No rashes CENTRAL NERVOUS SYSTEM: No focal deficits, tone is normal in all 4 extremities. EXTREMITIES: There is no peripheral edema. No clubbing, no cyanosis. Peripheral pulses are intact. - Labs CBC & Chem 7: 05/20/22 08:18 05/21/22 06:09 Labs: Abnormal Lab Results - Last 24 Hours (Table) 05/21/22 Range/Units 06:09 Sodium 135 L (137-145) mmol/L BUN 18 H (7-17) mg/dL Glucose 100 H (74-99) mg/dL Calcium 8.3 L (8.4-10.2) mg/dL Microbiology - Last 24 Hours (Table) 05/16/22 20:40 Blood Culture - Preliminary Blood No Growth after 96 hours 05/16/22 20:45 Blood Culture - Preliminary Blood No Growth after 96 hours Assessment and Plan Assessment: Acute on chronic hypoxemic respiratory failure secondary to an acute exacerbation of systolic congestive heart failure. Ejection fraction 20-25% Atrial fibrillation, anticoagulated with Eliquis. CHINO/cardioversion performed 05/20/2022 with conversion to sinus rhythm. Chronic hypoxemic respiratory failure secondary to chronic obstructive pulmonary disease, on 3 L nasal cannula at home History of chronic tobacco dependence Troponin leak Acute kidney injury, improved Acute urinary tract infection secondary to E. coli, on ceftriaxone Obesity Hypertension Hyperlipidemia Osteoarthritis Obstructive sleep apnea History of depression Plan: The patient was seen and evaluated Labs and medications reviewed Titrate the norepinephrine as tolerated Remains on oral amiodarone, Eliquis Remains on IV diuretics Continue ceftriaxone for UTI Titrate the FiO2 as tolerated We will continue to follow I have personally seen and examined the patient, performed the documentation and the assessment and plan as written. Number of minutes spent on the visit: 10.
--- NOTE | 2022-05-21 12:24 | PN ---
PROGRESS NOTE SUBJECTIVE: Ms. Victor is in sinus rhythm, had a cardioversion yesterday, slightly hypotensive, small dose of Levophed, also bradycardic, heart rate is about 50 beats per minute. I am recommending we hold the beta-vannesa today and decrease metoprolol to 12.5 mg t.i.d. tomorrow, hold if the heart rate is less than 60 or blood pressure is less than 100 and try to wean off the Levophed. Increase activity, have her up in chair. She has nonischemic cardiomyopathy and paroxysmal atrial fibrillation. She is doing better clinically. OBJECTIVE: VITAL SIGNS: Stable. NECK: JVD 1 cm. No carotid bruit. HEART: S1 and S2 heard normally. Short systolic murmur. LUNGS: Clear lungs. Improved air entry. ABDOMEN: Unchanged. LOWER EXTREMITIES: Unchanged. PLAN: To continue current medication with reduction in beta-vannesa dose and try to wean off Levophed. MMODL / IJN: [id number] /
[2022-05-21] MEDS: NOREPINEPHRINE 4 MG in SODIUM CHLORIDE 0.9% 250 ML IV SCH (16:52)
[2022-05-22 04:16] LABS: Basophils % (A) 0 %; Eosinophils # (A) 0.2 k/uL (0-0.7); Eosinophils % (A) 3 %; HCT 31.9 % (34.0-46.0); HGB 9.9 gm/dL (11.4-16.0); Hypochromasia Marked; Lymphocytes # (A) 1.7 k/uL (1.0-4.8); Lymphocytes % (A) 23 %; MCH 26.2 pg (25.0-35.0); MCV 84.5 fL (80.0-100.0); Mean Platelet Volume 9.7; Monocytes # (A) 0.3 k/uL (0-1.0); Monocytes % (A) 5 %; Neutrophils # (A) 5.2 k/uL (1.3-7.7); Neutrophils % (A) 68 %; Platelet Count 156 k/uL (150-450); RBC 3.77 m/uL (3.80-5.40); WBC 7.6 k/uL (3.8-10.6)
[2022-05-22 04:27] LABS: Calcium 8.6 mg/dL (8.4-10.2); Potassium 4.3 mmol/L (3.5-5.1)
[2022-05-22 04:48] LABS: Poikilocytosis (M) Present
[2022-05-22] MEDS: MAGNESIUM SULFATE-D5W PMX 1 GM in DEXTROSE/WATER 1 100ML.BAG IVPB SCH ×2 (05:38→06:45)
[2022-05-22] MEDS: SODIUM CHLORIDE 0.9% 1,000 ML IV SCH ×2 (06:46→15:28)
[2022-05-22] MEDS: IPRATROPIUM-ALBUTEROL 3 ML NEB INHALATION SCH ×4 (08:19→20:41)
[2022-05-22 08:26] VITALS: BMI 33.8
[2022-05-22] MEDS: AMIODARONE 200 MG TAB PO SCH ×2 (08:38→20:07)
[2022-05-22] MEDS: APIXABAN 5 MG TAB PO SCH ×2 (08:38→20:07)
[2022-05-22] MEDS: ATORVASTATIN 40 MG TAB PO SCH (08:38)
[2022-05-22] MEDS: FUROSEMIDE 10 MG/ML 2 ML VIAL IV SCH ×2 (08:38→20:08)
[2022-05-22] MEDS: METOPROLOL TARTRATE 12.5 MG TAB PO SCH ×3 (08:38→22:02)
[2022-05-22] MEDS: DAPAGLIFLOZIN PROPANEDIOL 10 MG TABLET PO SCH (08:38)
[2022-05-22] MEDS: SPIRONOLACTONE 25 MG TAB PO SCH (08:38)
--- NOTE | 2022-05-22 12:34 | P.PN ---
Subjective Progress Note Date: 05/22/22 This a 71-year-old female patient with a known history of hypothyroidism, hyperlipidemia, depression, hypertension, osteoarthritis, sleep apnea, obesity, oxygen dependent chronic obstructive pulmonary disease, former smoker. She is using an oxygen at 6 L nasal cannula at baseline. She presented to the [facility] room yesterday with complaints of generalized weakness and shortness of breath. She was recently hospitalized for congestive heart failure and new onset atrial fibrillation with RVR status post cardioversion, initiated on Eliquis, cardiomyopathy with ejection fraction 20-25%. Chest x-ray revealed cardiomegaly with chronic changes and left basilar opacity and evidence of fluid volume overload. Improved today compared to yesterday. Sodium 139. Potassium 4.4. BUN 25. Creatinine 0.83. Glucose 168. Troponin 2.05. She's been initiated on DuoNeb inhalations, IV diuretics, dobutamine drip at 5 mcg/kg/m. He is seen today in consultation in the intensive care unit. She is currently awake and alert in no acute distress. She is on 6 L high flow nasal cannula. Breathing a bit easier today compared to yesterday. Currently in sinus rhythm. Urinalysis cloudy with positive nitrates and moderate WBCs and many bacteria. Initiated on ceftriaxone. The patient is seen today 05/18/2022 in follow-up in the intensive care unit. She is currently sitting up in bed. Awake and alert. She is maintaining O2 saturations in the low 90s on 6 L high flow nasal cannula. She is having on going issues with atrial fibrillation with rapid ventricular response. She is on amiodarone drip at 0.5 mg/m. Dobutamine at 2.5 mcg/kg/m. Normal saline at 10 mL per hour. The plan is for cardioversion tomorrow per cardiology. Blood culture reveals no growth. Urine culture reveals no growth. White count 12.5. Hemoglobin 9.8. Platelet 142. Sodium 134. Potassium 5.4. Bicarb 31. BUN 23. Creatinine 0.95. Glucose 114. She is continued on DuoNeb inhalations, antibiotics in the form of ceftriaxone. Remains on IV diuretics. Currently in a -2.2 L balance. Anticoagulated with Eliquis. The patient is seen today 05/19/2022 in follow-up in the intensive care unit. She is awake and alert in no acute distress. Still requiring norepinephrine at 3 mcg/m. Normal saline at 10 mL per hour. She is maintaining good O2 saturations in the 90s on 3 L/m per nasal cannula. chest x-ray continues to revealed cardiomegaly with mild pulmonary vascular congestion. She remains in atrial fibrillation. Continued on amiodarone, beta blockers. Anticoagulated with Eliquis. The plan is for cardioversion per cardiology. Urine cultures positive for gram-negative bacilli. Blood cultures revealing no growth. White count 10.0. Hemoglobin 11.0. Sodium 136. Potassium 3.9. BUN 19. Creatinine 0.82. Glucose 95. Pro-calcitonin 1.34. Continued on ceftriaxone. Remains on IV diuretics. Currently in a -2.2 L balance. The patient is seen today 05/20/2022 in follow-up in the intensive care unit. She is currently slightly sedated. She had just undergone a CHINO with subsequent cardioversion with 150 J 1. Currently in normal sinus rhythm. He did receive 20 of ketamine and 40 g of propofol for the procedure. She continues to maintain good O2 saturations in the 90s on 5 L/m per nasal cannula. She has normal saline at 20 miles per hour. She is continued on norepinephrine at 2.7 mcg/m. Anticoagulated with Eliquis. She remains on IV diuretics, bronchodilators. On ceftriaxone for E. coli UTI. White count 8.3. Hemoglobin 11.2. Sodium 139. Potassium 3.5. Bicarb 32. BUN 19. Creatinine 0.94. The patient is seen today 05/21/2022 in follow-up in the intensive care unit. She is sitting up in bed. Awake and alert in no acute distress. She remains in sinus rhythm. She is status post cardioversion yesterday. She denies any chest discomfort, palpitations. No worsening shortness of breath cough or congestion. She is still requiring norepinephrine at 2.8 mcg/m to maintain mean arterial pressures greater than 60. She is on 3 L nasal cannula with good O2 saturations in the 90s. 0.9 normal saline at KVO. Urine culture is positive for E. coli. Blood cultures revealed no growth. Sodium 135. Potassium 3.9. Bicarb 29. BUN 18. Creatinine 0.94. Glucose 100. She is continued on ceftriaxone along with bronchodilators. She is on oral amiodarone. Anticoagulated with Eliquis. Remains on IV diuretics. Currently in a -560 ML balance. The patient is seen today 05/22/2022 in follow-up in the intensive care unit. She is currently sitting up in a chair at the bedside. Awake and alert in no acute distress. Doing quite a bit better today. She is maintaining good O2 saturations in the 90s on 3 L/m per nasal cannula. Blood pressure stable she's been off the norepinephrine since at least midnight. Urine culture was positive for E. coli. Blood cultures revealed no growth. White count 7.6. Hemoglobin 9.9. Platelets 156. Sodium 135. Potassium 4.3. Bicarb 16. Creatinine 1.02. Serum cortisol level 9. TSH 3.810. She remains on ceftriaxone. Anticoagulated with Eliquis. Remains on oral amiodarone. Continued in sinus rhythm. Remains in a negative balance. Continued on IV diuretics. Objective - Vital Signs Vital signs: Vital Signs Temp 98.3 F 05/22/22 08:00 Pulse 56 L 05/22/22 10:00 Resp 22 05/22/22 10:00 BP 102/43 05/22/22 10:00 Pulse Ox 97 05/22/22 10:00 FiO2 40 05/22/22 03:00 Intake & Output 05/21/22 05/22/22 05/22/22 18:59 06:59 18:59 Intake Total 1521.741 282.204 80 Output Total 1525 1500 200 Balance -3.259 -1217.796 -120 Weight 92.3 kg 92.3 kg Intake: IV 220 240 80 Sodium Chloride 0.9% 1, 220 240 80 000 ml @ 20 mls/hr IV . Q24H [facility] Rx#:[id number] Intake, IV Titration 601.741 42.204 Amount Magnesium Sulfate-D5w Pmx 200 1 gm In Dextrose/Water 1 100ml.bag @ 100 mls/hr IVPB Q1H [facility] Rx#: [id number] Norepinephrine 4 mg In 201.741 42.204 Sodium Chloride 0.9% 250 ml @ 0.03 MCG/KG/MIN 10. 378 mls/hr IV .Q24H [facility] Rx#:[id number] Potassium Chloride 10 meq 200 In Water For Injection 1 100ml.bag @ 100 mls/hr IVPB Q1H [facility] Rx#: [id number] Oral 700 Output: Urine 1525 1500 200 Other: Voiding Method External Catheter External Catheter External Catheter # Voids 0 1 - Exam GENERAL EXAM: Awake, alert 71-year-old female, on 3 L nasal cannula, fairly comfortable in no apparent distress. HEAD: Normocephalic. EYES: Normal reaction of pupils, equal size. NOSE: Clear with pink turbinates. THROAT: No erythema or exudates. NECK: No masses, no JVD. CHEST: No chest wall deformity. LUNGS: Equal air entry with bibasilar crackles. CVS: S1 and S2 normal with no audible murmur, irregular rhythm. ABDOMEN: No hepatosplenomegaly, normal bowel sounds, no guarding or rigidity. SPINE: No scoliosis or deformity SKIN: No rashes CENTRAL NERVOUS SYSTEM: No focal deficits, tone is normal in all 4 extremities. EXTREMITIES: There is no peripheral edema. No clubbing, no cyanosis. Peripheral pulses are intact. - Labs CBC & Chem 7: 05/22/22 03:17 05/22/22 03:17 Labs: Abnormal Lab Results - Last 24 Hours (Table) 05/22/22 05/22/22 Range/Units 03:17 03:17 RBC 3.77 L (3.80-5.40) m/uL Hgb 9.9 L (11.4-16.0) gm/dL Hct 31.9 L (34.0-46.0) % RDW 16.0 H (11.5-15.5) % Sodium 135 L (137-145) mmol/L Carbon Dioxide 33 H (22-30) mmol/L Microbiology - Last 24 Hours (Table) 05/16/22 20:40 Blood Culture - Preliminary Blood No Growth after 120 hours 05/16/22 20:45 Blood Culture - Preliminary Blood No Growth after 120 hours Assessment and Plan Assessment: Acute on chronic hypoxemic respiratory failure secondary to an acute exacerb ation of systolic congestive heart failure. Ejection fraction 20-25% Atrial fibrillation, anticoagulated with Eliquis. CHINO/cardioversion performed 05/20/2022 with conversion to sinus rhythm. Chronic hypoxemic respiratory failure secondary to chronic obstructive pulmonary disease, on 3 L nasal cannula at home History of chronic tobacco dependence Troponin leak Acute kidney injury, improved Acute urinary tract infection secondary to E. coli, on ceftriaxone Obesity Hypertension Hyperlipidemia Osteoarthritis Obstructive sleep apnea History of depression Plan: The patient was seen and evaluated Labs and medications reviewed Remains on oral amiodarone, Eliquis Continue ceftriaxone for UTI Titrate the FiO2 as tolerated We will continue to follow I have personally seen and examined the patient, performed the documentation and the assessment and plan as written. Number of minutes spent on the visit: 10.
--- NOTE | 2022-05-23 00:25 | CONS ---
CONSULTATION HISTORY OF PRESENT ILLNESS: Ramila is a 71-year-old lady who is admitted to hospital with atrial fibrillation with rapid ventricular rate and because of hypotension, she underwent cardioversion, was somewhat bradycardic and hypotensive afterwards and required Levophed. This morning she is doing well and is free of symptoms, remains in sinus rhythm with heart rates in the 50s, blood pressure is normal. MEDICATIONS: She is on, 1. Amiodarone 200 b.i.d. 2. Eliquis 5 b.i.d. 3. Atorvastatin 40 mg daily. 4. Farxiga. 5. Lasix. 6. Lopressor. 7. Aldactone. 8. The patient was on metoprolol, which I held because of the bradycardia. PHYSICAL EXAMINATION: GENERAL: Comfortable at rest. VITAL SIGNS: Stable, bradycardiac. NECK: There is no jugular venous distention. Carotid upstroke is normal. There is no bruit. CHEST: Reveals good air entry bilaterally. HEART: Reveals first and second heart sounds. No gallop, no murmur. ABDOMEN: Soft, nontender. EXTREMITIES: Did not reveal any edema. Peripheral pulses are felt. ASSESSMENT: Persistent atrial fibrillation, status post cardioversion. PLAN: The patient is doing well. Will continue with current medications except the metoprolol, which I am going to hold. MMODL / IJN: [id number] /
--- NOTE | 2022-05-23 03:25 | PN ---
PROGRESS NOTE DATE OF SERVICE: 05/22/2022 SUBJECTIVE: This is a 71-year-old woman, who is admitted with CHF acute exacerbation, acute hypoxic respiratory failure. Patient is being closely monitored in ICU. At this time, patient is on diuretics. Multiple consultants are following the patient including Cardiology and Pulmonology. Ejection fraction estimated to be 20% to 25%. PAST MEDICAL HISTORY: Reviewed. REVIEW OF SYSTEMS: 14-point review is negative except mentioned earlier. CURRENT MEDICATIONS: Reviewed and include DuoNeb. Doses and rest of medication noted. PHYSICAL EXAM: VITAL SIGNS: Pulse is 49, blood pressure 89/59, respiration 18. HEENT: Conjunctivae normal. NECK: No scars. CARDIOVASCULAR: S1, S2 present. RESPIRATIONS: A few scattered rhonchi and crackles. ABDOMEN: Soft. NERVOUS SYSTEM: No focal deficits. LABS: Reviewed. Creatinine is normal. ASSESSMENT: 1. Congestive heart failure exacerbation with acute on chronic systolic dysfunction. Ejection fraction 20% to 25% estimated. 2. Acute hypoxic respiratory failure. 3. Atrial fibrillation. 4. Chronic hypoxic respiratory failure. 5. Multiple medical issues. RECOMMENDATION: Recommend to continue current management and continue current treatment. Otherwise continue with diuretics. Continue with bronchodilators. Increase ambulation. Guarded prognosis because of DVT prophylaxis. Guarded prognosis because of multiple complex medical issues. Further recommendations to follow. See orders for details. MMODL / IJN: [id number] /
[2022-05-23] MEDS: IPRATROPIUM-ALBUTEROL 3 ML NEB INHALATION SCH ×4 (09:13→19:30)
[2022-05-23] MEDS: METOPROLOL TARTRATE 12.5 MG TAB PO SCH ×2 (09:15→20:42)
[2022-05-23] MEDS: AMIODARONE 200 MG TAB PO SCH ×2 (09:17→20:43)
[2022-05-23] MEDS: SPIRONOLACTONE 25 MG TAB PO SCH (09:17)
[2022-05-23] MEDS: APIXABAN 5 MG TAB PO SCH ×2 (09:17→20:43)
[2022-05-23] MEDS: FUROSEMIDE 10 MG/ML 2 ML VIAL IV SCH ×2 (09:17→20:43)
[2022-05-23] MEDS: ATORVASTATIN 40 MG TAB PO SCH (09:17)
[2022-05-23] MEDS: SODIUM CHLORIDE 0.9% 1,000 ML IV SCH ×2 (11:28→17:11)
[2022-05-23] MEDS: NOREPINEPHRINE 4 MG in SODIUM CHLORIDE 0.9% 250 ML IV SCH (12:31)
--- NOTE | 2022-05-23 13:11 | P.PN ---
Subjective Progress Note Date: 05/23/22 Patient is seen today resting comfortably in bed in no signs of acute distress. She denies chest pain or increased shortness of breath. She remains sinus rhythm on the monitor. Blood pressure is well-controlled 111/55. Heart rate remains in the 60s. Objective - Vital Signs Vital signs: Vital Signs Temp 97.2 F L 05/23/22 08:00 Pulse 62 05/23/22 11:26 Resp 19 05/23/22 08:00 BP 111/55 05/23/22 08:00 Pulse Ox 93 L 05/23/22 08:00 FiO2 40 05/22/22 03:00 Intake & Output 05/22/22 05/23/22 05/23/22 18:59 06:59 18:59 Intake Total 80 240 180 Output Total 650 1700 100 Balance -570 -1460 80 Weight 92.3 kg 136 kg Intake: IV 80 Sodium Chloride 0.9% 1, 80 000 ml @ 20 mls/hr IV . Q24H [facility] Rx#:[id number] Oral 240 180 Output: Urine 650 1700 100 Other: Voiding Method External Catheter External Catheter External Catheter # Voids 1 1 - Exam PHYSICAL EXAM: VITAL SIGNS: Reviewed. GENERAL: Well-developed in no acute distress. HEENT: Head is normocephalic. Pupils are equal, round. Sclerae anicteric. Mucous membranes of the mouth are moist. NECK: Supple. No JVD or thyromegaly RESPIRATORY: Respirations even and unlabored. Lungs diminished to auscultation bilaterally. CARDIO: Regular rate and rhythm. S1 and S2 heard. No murmur or gallops. EXTREMITIES: Normal range of motion. No clubbing or cyanosis. Peripheral pulses intact. Negative for bilateral lower extremity edema NEURO: Orientated to person, time, mood is appropriate - Labs CBC & Chem 7: 05/22/22 03:17 05/22/22 03:17 Labs: Microbiology - Last 24 Hours (Table) 05/16/22 20:45 Blood Culture - Final Blood No Growth after 144 hours 05/16/22 20:40 Blood Culture - Final Blood No Growth after 144 hours Assessment and Plan Assessment: Persistent atrial fibrillation status post cardioversion Plan: Decrease metoprolol Further recommendations based on clinical course The above impression and plan of care have been discussed and directed by the signing physician. Yolis Toro, nurse practitioner, acting as scribe for signing physician.
--- NOTE | 2022-05-23 15:04 | P.PN ---
Subjective Progress Note Date: 05/23/22 Principal diagnosis: Atrial fibrillation. The patient is seen today 05/20/2022 in follow-up in the intensive care unit. She is currently slightly sedated. She had just undergone a CHINO with subsequent cardioversion with 150 J 1. Currently in normal sinus rhythm. He did receive 20 of ketamine and 40 g of propofol for the procedure. She continues to maintain good O2 saturations in the 90s on 5 L/m per nasal cannula. She has normal saline at 20 miles per hour. She is continued on norepinephrine at 2.7 mcg/m. Anticoagulated with Eliquis. She remains on IV diuretics, bronchodilators. On ceftriaxone for E. coli UTI. White count 8.3. Hemoglobin 11.2. Sodium 139. Potassium 3.5. Bicarb 32. BUN 19. Creatinine 0.94. The patient is seen today 05/21/2022 in follow-up in the intensive care unit. She is sitting up in bed. Awake and alert in no acute distress. She remains in sinus rhythm. She is status post cardioversion yesterday. She denies any chest discomfort, palpitations. No worsening shortness of breath cough or congestion. She is still requiring norepinephrine at 2.8 mcg/m to maintain mean arterial pressures greater than 60. She is on 3 L nasal cannula with good O2 saturations in the 90s. 0.9 normal saline at KVO. Urine culture is positive for E. coli. Blood cultures revealed no growth. Sodium 135. Potassium 3.9. Bicarb 29. BUN 18. Creatinine 0.94. Glucose 100. She is continued on ceftriaxone along with bronchodilators. She is on oral amiodarone. Anticoagulated with Eliquis. Remains on IV diuretics. Currently in a -560 ML balance. The patient is seen today 05/22/2022 in follow-up in the intensive care unit. She is currently sitting up in a chair at the bedside. Awake and alert in no acute distress. Doing quite a bit better today. She is maintaining good O2 saturations in the 90s on 3 L/m per nasal cannula. Blood pressure stable she's been off the norepinephrine since at least midnight. Urine culture was positive for E. coli. Blood cultures revealed no growth. White count 7.6. Hemoglobin 9.9. Platelets 156. Sodium 135. Potassium 4.3. Bicarb 16. Creatinine 1.02. Serum cortisol level 9. TSH 3.810. She remains on ceftriaxone. Anticoagulated with Eliquis. Remains on oral amiodarone. Continued in sinus rhythm. Remains in a negative balance. Continued on IV diuretics. Progress note dated 05/23/2022. The patient was transferred out of the intensive care unit yesterday. She is now seen in room 376. The patient's on oxygen at 3 L. She's not receiving any IV fluids. She is awake and alert. She feels well. No new labs today. Her labs from May 22 are reviewed. Urine from May 16 showed evidence of Escherichia coli. She was treated for that, and antibiotics were discontinued. No new chest x-ray was done. She did have cardioversion on May 20. Objective - Vital Signs Vital signs: Vital Signs Temp 98.2 F 05/23/22 12:00 Pulse 68 05/23/22 13:49 Resp 18 05/23/22 13:49 BP 110/70 05/23/22 12:00 Pulse Ox 93 L 05/23/22 12:00 FiO2 40 05/22/22 03:00 Intake & Output 05/22/22 05/23/22 05/23/22 18:59 06:59 18:59 Intake Total 80 240 180 Output Total 650 1700 100 Balance -570 -1460 80 Weight 92.3 kg 136 kg Intake: IV 80 Sodium Chloride 0.9% 1, 80 000 ml @ 20 mls/hr IV . Q24H [facility] Rx#:[id number] Oral 240 180 Output: Urine 650 1700 100 Other: Voiding Method External Catheter External Catheter External Catheter # Voids 1 1 - Exam No acute distress, oriented 3. Currently on 3 L oxygen. No conversational dyspnea or use of accessory muscles. HEENT examination is grossly unremarkable. Neck supple. Full range of motion. No adenopathy thyromegaly or neck vein distention. Cardiovascular examination reveals regular rhythm rate. S1-S2 normal. No S3 or S4. No discernible murmur noted. Heart rate 62 bpm. No heart murmur. Lungs reveal scattered bilateral rhonchi. No wheezes. No crackles. Breath sounds equal bilaterally. 3 L saturation is 93%. Abdomen soft bowel sounds are heard. No masses or tenderness. Extremities are intact. No cyanosis clubbing or edema. Skin is without rash or lesion. Neurologic examination is brief but nonfocal. - Labs CBC & Chem 7: 05/22/22 03:17 05/22/22 03:17 Labs: Microbiology - Last 24 Hours (Table) 05/16/22 20:45 Blood Culture - Final Blood No Growth after 144 hours 05/16/22 20:40 Blood Culture - Final Blood No Growth after 144 hours Assessment and Plan Assessment: Acute on chronic hypoxemic respiratory failure secondary to an acute exacerbation of systolic congestive heart failure. Ejection fraction 20-25%. Atrial fibrillation, anticoagulated with Eliquis. CHINO/cardioversion performed 05/20/2022 with conversion to sinus rhythm. Chronic hypoxemic respiratory failure secondary to chronic obstructive pulmonary disease, on 3 L nasal cannula at home. History of chronic tobacco dependence. Troponin leak. Acute kidney injury, improved. Acute urinary tract infection secondary to E. coli, treated with ceftriaxone. Obesity. Hypertension. Hyperlipidemia. Osteoarthritis. Obstructive sleep apnea. History of depression. Plan: Plan dated 05/23/2022. The patient appears to be doing relatively well. She was transferred out of the intensive care unit yesterday. Labs, x-rays, and medications are reviewed. She remains on oxygen at 3 L. She's currently on oral amiodarone and Eliquis. The ceftriaxone was discontinued. We will continue to follow and make recommendations were appropriate. Prognosis is guarded. Time with Patient: Less than 30
[2022-05-23] MEDS: DAPAGLIFLOZIN PROPANEDIOL 10 MG TABLET PO SCH (17:10)
--- NOTE | 2022-05-24 04:44 | PN ---
PROGRESS NOTE DATE OF SERVICE: 05/23/2022 SUBJECTIVE: This 71-year-old woman, who was admitted with CHF acute exacerbation, also had ejection fraction about 20% to 25%. The patient is being closely monitored. No chest pain. No palpitations. No fever. OBJECTIVE: VITAL SIGNS: Pulse is 68, blood pressure 110/70, respirations 18. CHEST: Few scattered rhonchi and crackles. CARDIOVASCULAR: S1, S2. ABDOMEN: Soft. LABORATORY DATA: Reviewed. ASSESSMENT: 1. Congestive heart failure acute exacerbation with acute on chronic systolic dysfunction, ejection fraction of 20% to 25%. 2. Acute hypoxic respiratory failure. 3. Atrial fibrillation. 4. Multiple medical issues. RECOMMENDATIONS: I recommend to continue current management and symptomatic treatment. Continue with diuretics. Increase ambulation. Guarded prognosis. Further recommendations to follow. MMODL / IJN: [id number] /
[2022-05-24] MEDS: SODIUM CHLORIDE 0.9% 1,000 ML IV SCH (07:43)
[2022-05-24] MEDS: METOPROLOL TARTRATE 12.5 MG TAB PO SCH (08:02)
[2022-05-24] MEDS: FUROSEMIDE 10 MG/ML 2 ML VIAL IV SCH (08:09)
[2022-05-24] MEDS: APIXABAN 5 MG TAB PO SCH (08:09)
[2022-05-24] MEDS: ATORVASTATIN 40 MG TAB PO SCH (08:09)
[2022-05-24] MEDS: SPIRONOLACTONE 25 MG TAB PO SCH (08:09)
[2022-05-24] MEDS: AMIODARONE 200 MG TAB PO SCH (08:09)
[2022-05-24] MEDS ORDERED: METOPROLOL SUCCINATE (ER) 25 MG TAB.ER.24H PO SCH (09:30)
[2022-05-24] MEDS ORDERED: SACUBITRIL/VALSARTAN 24 MG-26 MG TABLET PO SCH (09:30)
[2022-05-24] MEDS: IPRATROPIUM-ALBUTEROL 3 ML NEB INHALATION SCH ×2 (09:35→12:03)
[2022-05-24] MEDS: DAPAGLIFLOZIN PROPANEDIOL 10 MG TABLET PO SCH (10:25)
--- NOTE | 2022-05-24 11:40 | P.PN ---
Subjective This is a 71-year-old female with a past medical history significant for recent diagnosis of paroxysmal A fib with RVR s/p cardioversion in 03/2022 and non- ischemic cardiomyopathy with EF 20-25%, hypertension, hyperlipidemia, hypothyroidism, COPD with home oxygen, obstructive sleep apnea. Patient does not follow with a electronic components assembler. We have been asked to see the patient in consultation initially for cardiogenic shock. She presented to the ER with complaints of generalized weakness and shortness of breath. Initially admitted to the ICU. She continued to be in A fib with RVR, underwent cardioversion on 05/20. Also found to have a UTI and to be in heart failure. 05/24/2022 Patient seen and examined at bedside, no acute distress. She feels well. Denies any chest pain or shortness of breath. She continues to be on IV Lasix. Labs not available today. Patient with -2.2L. She feels back to her baseline. She is maintaining sinus mechanism. Echo revealed an improved ejection fraction 4550%. GENERAL: Well-appearing, well-nourished and in no acute distress. NECK: Supple without JVD LUNGS: Breath sounds diminished bases to auscultation bilaterally. Respiration equal and unlabored. No wheezes, rales or rhonchi. HEART: Regular rate and rhythm with Systolic ejection murmur at apex, No rubs or gallops. S1 and S2 heard. EXTREMITIES: Normal range of motion, no edema. No clubbing or cyanosis. Peripheral pulses intact. ASSESSMENT Persistent atrial fibrillation s/p cardioversion on 05/20 and previously in 03/2022 Non-ischemic Cardiomyopathy with EF 20-25%, Non-ischemic Acute on chronic heart failure with reduced ejection fraction Hypertension Hyperlipidemia Hypothyroidism COPD with home oxygen Obstructive sleep apnea PLAN From a cardiology perspective, recommend restarting patient's home cardiac medications Continue entresto Transition to home metoprolol succinate 25mg daily and PO Lasix 20mg daily Continue amiodarone 200mg daily home dose Continue anticoagulation with Eliquis, continue statin, continue spironolactone Patient is stable from a cardiology perspective Recommend she follow up with her electronic components assembler or Dr. Craft within 1 week from discharge Nurse Practitioner note has been reviewed, I agree with a documented findings and plan of care. Patient was seen and examined. Objective - Vital Signs Vital signs: Vital Signs Temp 98.5 F 05/24/22 04:00 Pulse 58 L 05/24/22 04:00 Resp 18 05/24/22 04:00 BP 112/56 05/24/22 04:00 Pulse Ox 95 05/24/22 04:00 FiO2 40 05/22/22 03:00 Intake & Output 05/23/22 05/24/22 05/24/22 18:59 06:59 18:59 Intake Total 180 420 Output Total 1500 1350 Balance -1320 -930 Intake: Oral 180 420 Output: Urine 1500 1350 Other: Voiding Method External Catheter External Catheter # Voids 1 - Labs CBC & Chem 7: 05/22/22 03:17 05/22/22 03:17
[2022-05-24 12:04] VITALS: RESP 18
[2022-05-24 12:18] VITALS: BP 113/54; PULSE 59; TEMP 98
[2022-05-24] MEDS ORDERED: propofoL 100 ML IV ONE (13:49)
--- NOTE | 2022-05-24 14:35 | P.DS ---
Providers Date of admission: 05/16/22 19:31 Expected date of discharge: 05/24/22 Attending physician: Cosme Pena MD Consults: 05/16/22 19:31 Consult Physician Urgent Consulting Provider: Nilton Nava Consult Reason/Comments: Cardiogenic shock Do you want consulting provider notified?: Already Contacted Consult Physician Urgent Consulting Provider: Meredith Dodd Consult Reason/Comments: ICU management Do you want consulting provider notified?: Already Contacted Primary care physician: [facility] Course: Final Diagnoses:: Acute on chronic hypoxic respiratory failure secondary to acute on chronic CHF, systolic dysfunction, EF 20-25%. Repeat echo reporting improved EF of 45- 50%.Wears 6 L nasal cannula at home. Persistent A. fib with RVR in a patient Recently diagnosed New-onset paroximal atrial fibrillation with RVR, s/p successful cardioversion, 03/25. [facility]/successful cardioversion 05/20/2022 Troponins elevated, cardiology following Acute UTI, with E. coli Nonischemic cardiomyopathy, etiology unclear Acute renal insufficiency, contrast-induced. History of Left adrenal mass , large, increased from exam 5 years ago. Further follow-up outpatient with endocrinology. CAD, history of CT COPD Hypertension Hyperlipidemia Morbid obesity, BMI 33.2 Obstructive sleep apnea Hospital course:This is a 71-year-old obese female recently diagnosed /hospitalized in March with new onset atrial fibrillation and multiple other medical issues presented to the ER with increasing weakness especially noted in the legs after episodes of diarrhea. Patient reports she has been compliant with her low-sodium diet but had consumed significant amount of pineapple juice, developed diarrhea. Denies falls, head trauma. Denies syncope. Denies lightheadedness dizziness or focal deficits. Denies chest pain, palpitations or shortness of breath. O2 sat on admission was 86% on room air/91-93% on 6 L nasal cannula(which patient wears at home). Hypotensive on admission, blood pressure 84/43, dropped to 68/30. Denies sickness congestion fevers or chills. Patient had completed cardiology rehab. on the and was scheduled to follow-up with cardiology on Tuesday. Sitting up on a couple pills states it hurts her back to lay flat. Telemetry sinus rhythm. Dobutamine increased and losartan resumed. Levophed drip weaned off earlier this morning. Afebrile, WBC 17, hemoglobin 10.6 platelets 141,INR 1.3. Sodium improved 139, potassium 4.4, bicarb 28, BUN 25, creatinine 0.83. Blood sugars controlled, lactic acid 1.1, magnesium 1.8 after supplementation, troponin is 2.270, 2.320, 2.050. UA reporting many bacteria, moderate wbc's: 226 WBCs large leukocytes and positive nitrates, culture in progress. Chest x-ray reported cardiomegaly, mild congestion, CHF and pleural fluid improved compared to prior exam. Echo pending. 05/18/2022 feels better this morning on dobutamine drip. Echo reported mild aortic stenosis,EF of 45-50%, while on dobutamine. Levothroid currently off. Afebrile with RVR, continues on amiodarone, anticoagulated on Eliquis. Maintaining O2 sats in the 90s on 6 L nasal cannula. Diuresing well on Lasix IV push diuretics with 24-hour I&O reflecting a negative fluid balance. UTI, continues on on ceftriaxone. Afebrile, and WBC 12.5. Sodium 134, potassium 5.4, chloride 103, bicarb 31, BUN 23, creatinine 0.95. Magnesium 1.5, magnesium replacement protocol as ordered. 05/19/2022 maintained on Levophed. Continues in atrial fibrillation, tachycardic, on amiodarone and beta vannesa. Continues diuresing well on IV push diuretics with 24-hour I&O reflecting a negative fluid balance. Chest x-ray reporting similar cardiomegaly, mild pulmonary vascular congestion.Maintaining O2 sats in the low 90s on 3 L nasal cannula. Renal function stable.Afebrile, normal WBC. 05/20/2022 just returning from [facility] with successful cardioversion, 150J X 1; telemetry sinus rhythm. Maintained on the Levophed. Feels better. Continues on nebulized bronchodilators, IV diuretics. Bicarb 32, creatinine 0.94.Maintaining O2 sats in the 90s on 5 L nasal cannula. Maintained on ceftriaxone for E. coli UTI, afebrile, WBC within normal limits Completed antibiotic therapy. Maintained on antiarrhythmics, diuretics, entresto. Anticoagulated with Eliquis. Denies any chest pain, palpitations or shortness of breath. Denies any nausea, vomiting or abdominal pain. Significant clinical improvement. Cleared by cardiology for discharge. Patient will be discharged home today with home care in a stable condition with guarded prognosis. The impression and plan of care has been dictated as directed. : I performed a history and examination of this patient, discussed the same with the dictator. I agree with the dictator's note ,documented as a scribe. Any additional findings or plans will be noted. Patient Condition at Discharge: Stable Plan - Discharge Summary Discharge Rx Participant: No New Discharge Prescriptions: Continue Multivitamins, Thera [Multivitamin (formulary)] 1 tab PO DAILY Potassium Chloride [Potassium Chloride ER] 10 meq PO DAILY Sertraline [Zoloft] 100 mg PO DAILY Apixaban [Eliquis] 5 mg PO BID #60 tab Ipratropium-Albuterol Nebulize [Duoneb 0.5 mg-3 mg/3 ml Soln] 3 ml INHALATION RT-QID PRN #120 each PRN Reason: Shortness Of Breath Or Wheezing Nitroglycerin Sl Tabs [Nitrostat] 0.4 mg SUBLINGUAL Q5M PRN #100 tab PRN Reason: Chest Pain Amiodarone [Cordarone] 200 mg PO DAILY #30 tab [place]-3/Dha/Epa/Fish Oil [Fish Oil 500 mg Softgel] 1 cap PO DAILY Levothyroxine Sodium [Synthroid] 25 mcg PO DAILY Atorvastatin Calcium [Lipitor] 40 mg PO HS Spironolactone [Aldactone] 25 mg PO DAILY #90 tab Furosemide [Lasix] 20 mg PO DAILY #90 tab Metoprolol Succinate (ER) [Toprol XL] 25 mg PO DAILY #90 tab Magnesium Oxide [Mag-Ox] 400 mg PO DAILY #30 tablet Sacubitril/Valsartan [Entresto 24 mg-26 mg Tablet] 1 tab PO DAILY Discharge Medication List Multivitamins, Thera [Multivitamin (formulary)] 1 tab PO DAILY 12/28/17 [History] [place]-3/Dha/Epa/Fish Oil [Fish Oil 500 mg Softgel] 1 cap PO DAILY 01/13/21 [History] Potassium Chloride [Potassium Chloride ER] 10 meq PO DAILY 01/13/21 [History] Atorvastatin Calcium [Lipitor] 40 mg PO HS 03/21/22 [History] Levothyroxine Sodium [Synthroid] 25 mcg PO DAILY 03/21/22 [History] Sertraline [Zoloft] 100 mg PO DAILY 03/21/22 [History] Apixaban [Eliquis] 5 mg PO BID #60 tab 03/22/22 [Rx] Ipratropium-Albuterol Nebulize [Duoneb 0.5 mg-3 mg/3 ml Soln] 3 ml INHALATION RT-QID PRN #120 each 03/24/22 [Rx] Furosemide [Lasix] 20 mg PO DAILY #90 tab 03/26/22 [Rx] Metoprolol Succinate (ER) [Toprol XL] 25 mg PO DAILY #90 tab 03/26/22 [Rx] Nitroglycerin Sl Tabs [Nitrostat] 0.4 mg SUBLINGUAL Q5M PRN #100 tab 03/26/22 [Rx] Spironolactone [Aldactone] 25 mg PO DAILY #90 tab 03/26/22 [Rx] Amiodarone [Cordarone] 200 mg PO DAILY #30 tab 03/29/22 [Rx] Magnesium Oxide [Mag-Ox] 400 mg PO DAILY #30 tablet 03/29/22 [Rx] Sacubitril/Valsartan [Entresto 24 mg-26 mg Tablet] 1 tab PO DAILY 05/16/22 [History] Follow up Appointment(s)/Referral(s): Sara Craft MD [STAFF PHYSICIAN] - 06/09/22 2:15 pm Kadie Pena DO [Family Provider] - 3 Days (CALL FOR APPOINTMENT.) Patient Instructions/Handouts: Heart Failure (DC), A-fib (Atrial Fibrillation) (DC), Low-Sodium Diet (DC) Activity/Diet/Wound Care/Special Instructions: 5 Liters nasal cannula O2 Discharge Disposition: HOME WITH HOME HEALTH SERVICES
[2022-05-25] MEDS ORDERED: FUROSEMIDE 20 MG TAB PO SCH (09:00)
== END 2022-05-24 14:22 | disposition home health service (06) | DRG 291 ==
LOC: EC 16:21 → 2SICU 19:31 → 3SCARD 05-23 00:57
PROVIDERS: ADMIT Family Medicine; ATTEND Family Medicine
PROC: 02H633Z Insertion of Infusion Device into Right Atrium, Percutaneous Approach (ICD-10-PCS; 2022-05-16)
PROC: 3E033XZ Introduction of Vasopressor into Peripheral Vein, Percutaneous Approach (ICD-10-PCS; 2022-05-16)
PROC: B24BZZ4 Ultrasonography of Heart with Aorta, Transesophageal (ICD-10-PCS; principal; 2022-05-20 08:45)
PROC: 5A2204Z Restoration of Cardiac Rhythm, Single (ICD-10-PCS; principal; 2022-05-20 08:45)
DX: I11.0 Hypertensive heart disease with heart failure (principal); I50.23 Acute on chronic systolic (congestive) heart failure; R57.0 Cardiogenic shock; J96.21 Acute and chronic respiratory failure with hypoxia; N17.9 Acute kidney failure, unspecified; I48.19 Other persistent atrial fibrillation; Z68.42 Body mass index [BMI] 45.0-49.9, adult; N39.0 Urinary tract infection, site not specified; I42.8 Other cardiomyopathies; E66.01 Morbid (severe) obesity due to excess calories; J44.9 Chronic obstructive pulmonary disease, unspecified; E27.9 Disorder of adrenal gland, unspecified; B96.20 Unspecified Escherichia coli [E. coli] as the cause of diseases classified elsewhere; E03.9 Hypothyroidism, unspecified; K21.9 Gastro-esophageal reflux disease without esophagitis; E78.5 Hyperlipidemia, unspecified; G47.33 Obstructive sleep apnea (adult) (pediatric); I08.1 Rheumatic disorders of both mitral and tricuspid valves; I25.10 Atherosclerotic heart disease of native coronary artery without angina pectoris; I25.2 Old myocardial infarction; F32.A Depression, unspecified; R77.8 Other specified abnormalities of plasma proteins; M19.90 Unspecified osteoarthritis, unspecified site; Z99.81 Dependence on supplemental oxygen; Z79.01 Long term (current) use of anticoagulants; Z79.890 Hormone replacement therapy; Z79.899 Other long term (current) drug therapy; Z96.653 Presence of artificial knee joint, bilateral; Z87.891 Personal history of nicotine dependence; Z71.3 Dietary counseling and surveillance; Z88.5 Allergy status to narcotic agent
CPT/HCPCS: 36415; 36556; 71045; 80048; 80053; 81001; 82533; 83605; 83735; 83880; 84100; 84145; 84443; 84484; 85025; 85610; 85730; 87040; 87077; 87086; 87186; 92960; 93005; 93306; 93312; 93320; 93325; 94640; 94760; 96365; 96366; 96368; 99291

== ENCOUNTER 2022-06-07 16:34 | Emergency (ER) | payer MEDICARE ==
[2022-06-07] MEDS ORDERED: SODIUM CHLORIDE 0.9% 1,000 ML IV ONE (16:44)
--- NOTE | 2022-06-07 16:59 | ED ---
General Adult HPI - General Chief complaint: Extremity Injury, Lower Stated complaint: Rt hip pain Time Seen by Provider: 06/07/22 16:37 Source: patient, EMS Mode of arrival: EMS Limitations: no limitations - History of Present Illness Initial comments: This is a 71-year-old female with a past medical history including age or fibrillation on Eliquis, hypertension and diabetes presents emergency department for right leg pain. The patient stated that she has had chronic right leg pain however stated that she was using her walker at home when she turned sideways to go and sit on a chair when she noted a "tweaked" and immediate pain to the right hip and right leg. Because of this, the patient could not move her right lower extremity due to pain. The patient stated that she also had pain in the right knee but denied any direct trauma to the knee or the hip. The patient denied falling or having any weakness or difficulty with walking. The patient denied any other acute pain or complaints at this time. - Related Data Home Medications Medication Instructions Recorded Confirmed Multivitamins, Thera [Multivitamin 1 tab PO DAILY 12/28/17 05/16/22 (formulary)] [place]-3/Dha/Epa/Fish Oil [Fish Oil 1 cap PO DAILY 01/13/21 05/16/22 500 mg Softgel] Potassium Chloride [Potassium 10 meq PO DAILY 01/13/21 05/16/22 Chloride ER] Atorvastatin Calcium [Lipitor] 40 mg PO HS 03/21/22 05/16/22 Levothyroxine Sodium [Synthroid] 25 mcg PO DAILY 03/21/22 05/16/22 Sertraline [Zoloft] 100 mg PO DAILY 03/21/22 05/16/22 Sacubitril/Valsartan [Entresto 24 1 tab PO DAILY 05/16/22 05/16/22 mg-26 mg Tablet] Previous Rx's Medication Instructions Recorded Apixaban [Eliquis] 5 mg PO BID #60 tab 03/22/22 Ipratropium-Albuterol Nebulize 3 ml INHALATION RT-QID PRN #120 03/24/22 [Duoneb 0.5 mg-3 mg/3 ml Soln] each Furosemide [Lasix] 20 mg PO DAILY #90 tab 03/26/22 Metoprolol Succinate (ER) [Toprol 25 mg PO DAILY #90 tab 03/26/22 XL] Nitroglycerin Sl Tabs [Nitrostat] 0.4 mg SUBLINGUAL Q5M PRN #100 tab 03/26/22 Spironolactone [Aldactone] 25 mg PO DAILY #90 tab 03/26/22 Amiodarone [Cordarone] 200 mg PO DAILY #30 tab 03/29/22 Magnesium Oxide [Mag-Ox] 400 mg PO DAILY #30 tablet 03/29/22 Allergies Allergy/AdvReac Type Severity Reaction Status Date / Time morphine AdvReac Nausea & Verified 06/07/22 16:44 Vomiting Review of Systems ROS Statement: Those systems with pertinent positive or pertinent negative responses have been documented in the HPI. ROS Other: All systems not noted in ROS Statement are negative. Past Medical History Past Medical History: Atrial Fibrillation, COPD, GERD/Reflux, Hyperlipidemia, Hypertension, Osteoarthritis (OA), Sleep Apnea/CPAP/BIPAP Additional Past Medical History / Comment(s): obesity (morbid), degenerative arthritis , Adrenal mass -left measuring 8.4 x 6.2 cm in size. BECAME SEPTIC W/ DEHYDRATION, BODY ULCERS R/T DEPRESSION 06/2017-07/2017; NOW ON O2 @4l & PRN.lt radial fx;Afib- eliquis; Endometriosis- mUterine bleeding for past month on and off PCP aware History of Any Multi-Drug Resistant Organisms: None Reported Past Surgical History: Breast Surgery, Section, Joint Replacement Additional Past Surgical History / Comment(s): LT BREAST CYST, edith knee replacement Past Anesthesia/Blood Transfusion Reactions: No Reported Reaction Past Psychological History: Depression Smoking Status: Former smoker - Past Family History Sister(s) Family Medical History: Liver Disease Additional Family Medical History / Comment(s): sister had genetic liver disorder from which she . pt was tested and found negative. General Exam Limitations: no limitations General appearance: alert, in no apparent distress Head exam: Present: atraumatic, normocephalic Eye exam: Present: normal appearance, PERRL Pupils: Present: normal accommodation ENT exam: Present: normal exam, normal oropharynx, mucous membranes moist Neck exam: Present: normal inspection, full ROM Respiratory exam: Present: normal lung sounds bilaterally Cardiovascular Exam: Present: regular rate, normal rhythm, normal heart sounds GI/Abdominal exam: Present: soft, normal bowel sounds Extremities exam: Present: normal inspection, tenderness (Mild tenderness noted to the right lateral femur and tenderness patient to the right knee with decreased range of motion secondary to pain), normal capillary refill Back exam: Present: normal inspection, full ROM Neurological exam: Present: alert, oriented X3, CN II-XII intact Psychiatric exam: Present: normal affect, normal mood Skin exam: Present: warm, dry Course Vital Signs 06/07/22 06/07/22 06/07/22 16:36 16:49 17:37 Temperature 98.8 F Pulse Rate 60 56 L 63 Respiratory 17 16 17 Rate Blood Pressure 88/47 99/38 91/37 O2 Sat by Pulse 94 L 95 94 L Oximetry 06/07/22 06/07/22 06/07/22 17:45 18:00 18:30 Temperature Pulse Rate 64 61 60 Respiratory 17 17 16 Rate Blood Pressure 87/39 86/34 86/61 O2 Sat by Pulse 94 L 94 L 94 L Oximetry 06/07/22 06/07/22 19:00 19:19 Temperature 98.6 F Pulse Rate 60 61 Respiratory 18 17 Rate Blood Pressure 88/37 93/37 O2 Sat by Pulse 95 95 Oximetry Medical Decision Making - Medical Decision Making The patient was seen and evaluated in the emergency department. Physical exam, the patient was resting in bed without any acute distress. Vital signs admission did show some mild hypotension but the patient was given 1 L of normal saline fluid. The rest of vital signs were also stable. Due to the nature the patient's complaints, an x-ray of the right hip, right pelvis, right femur and right knee were obtained. X-rays of the hip, pelvis, femur and knee were interpreted by myself and showed end-stage osteoarthritis of the right hip and moderate left osteoarthrosis. There was right knee arthroplasty changes with suspected joint effusion. There was no evidence of a fracture. The patient continued to remain stable and was given a dose of Toradol in the emergency department. The patient on reevaluation stated this had helped her pain and she was likely suffering chronic right hip pain secondary to advanced osteoarthritis. The patient was seems still for discharge and told to follow-up with her primary care physician and orthopedic surgeon for further evaluation of the osteoarthritis of the right hip. The patient and her family were told of this and were told to report back to the emergency department if she had difficulty with ambulation to the point where she cannot longer take care of herself. They did understand these instructions and all her questions were answered appropriately. The patient was discharged home in stable condition with her family. Disposition Clinical Impression: Hip arthritis, Knee swelling Disposition: HOME SELF-CARE Condition: Stable Instructions (If sedation given, give patient instructions): Osteoarthritis (DC), Swollen Knee Joint (ED) Is patient prescribed a controlled substance at d/c from ED?: No Referrals: Cosme Pena MD [Primary Care Provider] - 1-2 days Time of Disposition: 19:10
--- NOTE | 2022-06-07 18:18 | XR ---
EXAMINATION TYPE: XR Hip RT and AP Pelvis, XR knee limited RT, XR femur RT DATE OF EXAM: 06/07/2022 5:24 PM INDICATION: Patient age:Female; 71 years old; Reason for study: Pain. COMPARISON: CT 06/12/2017. TECHNIQUE: The right hip was examined in the frontal and lateral projections and a AP pelvis. Frontal and lateral views of the right knee. Frontal and lateral views of the right femur. FINDINGS: No definitive evidence of fracture involving the right femur. There is postsurgical changes to the right knee with total knee arthroplasty. Hardware appears in appropriate position and intact. Degeneration changes of the right hip with joint space narrowing with [id number] articulation and subchondral cystic changes. Mild osteophytes of the left acetabulum. Calcified lesion within the left adnexa correlates with fibroid uterus on CT imaging. There is a suspected joint effusion present. IMPRESSION: 1. End-stage osteoarthrosis of the right hip and moderate left hip osteoarthrosis. 2. Right knee arthroplasty changes with suspected joint effusion. 3. No evidence of fracture.
[2022-06-07] MEDS ORDERED: KETOROLAC 15 MG/ML 1 ML VIAL IVP STA (18:25)
[2022-06-07 19:18] VITALS: TEMP 98.6
[2022-06-07 19:43] VITALS: BP 90/41; PULSE 60; RESP 18
== END 2022-06-07 19:45 | disposition home or self-care (01) ==
LOC: SUPCPDRO 16:34 → EC 16:34
DX: M16.11 Unilateral primary osteoarthritis, right hip (principal); R22.41 Localized swelling, mass and lump, right lower limb; I48.91 Unspecified atrial fibrillation; J44.9 Chronic obstructive pulmonary disease, unspecified; I10 Essential (primary) hypertension; K21.9 Gastro-esophageal reflux disease without esophagitis; E78.5 Hyperlipidemia, unspecified; F32.A Depression, unspecified; Z87.891 Personal history of nicotine dependence; Z88.6 Allergy status to analgesic agent; Z79.899 Other long term (current) drug therapy
CPT/HCPCS: 96374; 96361; 73502; 73552; 73560; 99284; J1885

== ENCOUNTER 2022-07-07 14:54 | Emergency (ER) | payer MEDICARE ==
[2022-07-07 15:14] VITALS: BP 102/70; PULSE 60; RESP 28; TEMP 98.7
[2022-07-07 15:55] LABS: Glucose,Whole Blood 101 mg/dL (70-110)
--- NOTE | 2022-07-07 22:56 | ED ---
General Adult HPI - General Chief complaint: Shortness of Breath Stated complaint: bradycardia Time Seen by Provider: 07/07/22 15:08 Source: EMS Mode of arrival: EMS Limitations: no limitations - History of Present Illness Initial comments: This is a 71-year-old female who presents emergency department via EMS for altered mental status and difficulty in breathing. No further history could be obtained at this time however the patient was noted to be agonal breathing on my evaluation and was able to answer any questions. No further history was obtain ed by EMS nor by any family was not present at the bedside. - Related Data Home Medications Medication Instructions Recorded Confirmed Multivitamins, Thera [Multivitamin 1 tab PO DAILY 12/28/17 05/16/22 (formulary)] [place]-3/Dha/Epa/Fish Oil [Fish Oil 1 cap PO DAILY 01/13/21 05/16/22 500 mg Softgel] Potassium Chloride [Potassium 10 meq PO DAILY 01/13/21 05/16/22 Chloride ER] Atorvastatin Calcium [Lipitor] 40 mg PO HS 03/21/22 05/16/22 Levothyroxine Sodium [Synthroid] 25 mcg PO DAILY 03/21/22 05/16/22 Sertraline [Zoloft] 100 mg PO DAILY 03/21/22 05/16/22 Sacubitril/Valsartan [Entresto 24 1 tab PO DAILY 05/16/22 05/16/22 mg-26 mg Tablet] Previous Rx's Medication Instructions Recorded Apixaban [Eliquis] 5 mg PO BID #60 tab 03/22/22 Ipratropium-Albuterol Nebulize 3 ml INHALATION RT-QID PRN #120 03/24/22 [Duoneb 0.5 mg-3 mg/3 ml Soln] each Furosemide [Lasix] 20 mg PO DAILY #90 tab 03/26/22 Metoprolol Succinate (ER) [Toprol 25 mg PO DAILY #90 tab 03/26/22 XL] Nitroglycerin Sl Tabs [Nitrostat] 0.4 mg SUBLINGUAL Q5M PRN #100 tab 03/26/22 Spironolactone [Aldactone] 25 mg PO DAILY #90 tab 03/26/22 Amiodarone [Cordarone] 200 mg PO DAILY #30 tab 03/29/22 Magnesium Oxide [Mag-Ox] 400 mg PO DAILY #30 tablet 03/29/22 Allergies Allergy/AdvReac Type Severity Reaction Status Date / Time morphine AdvReac Nausea & Verified 06/07/22 16:44 Vomiting Review of Systems ROS Statement: Those systems with pertinent positive or pertinent negative responses have been documented in the HPI. Limitations: ROS unobtainable due to patients medical condition Past Medical History Past Medical History: Atrial Fibrillation, COPD, GERD/Reflux, Hyperlipidemia, Hypertension, Osteoarthritis (OA), Sleep Apnea/CPAP/BIPAP Additional Past Medical History / Comment(s): obesity (morbid), degenerative arthritis , Adrenal mass -left measuring 8.4 x 6.2 cm in size. BECAME SEPTIC W/ DEHYDRATION, BODY ULCERS R/T DEPRESSION 06/2017-07/2017; NOW ON O2 @4l & PRN.lt radial fx;Afib- eliquis; Endometriosis- mUterine bleeding for past month on and off PCP aware History of Any Multi-Drug Resistant Organisms: Unobtainable Past Surgical History: Breast Surgery, Section, Joint Replacement Additional Past Surgical History / Comment(s): LT BREAST CYST, edith knee replacement Past Anesthesia/Blood Transfusion Reactions: No Reported Reaction Past Psychological History: Depression Smoking Status: Former smoker Past Alcohol Use History: Unable to Obtain Past Drug Use History: Unable to Obtain - Past Family History Sister(s) Family Medical History: Liver Disease Additional Family Medical History / Comment(s): sister had genetic liver disor nurys from which she . pt was tested and found negative. General Exam Limitations: altered mental status, physical limitation General appearance: obtunded, obese Head exam: Present: atraumatic, normocephalic Eye exam: Present: normal appearance Pupils: Present: other (Pupils dilated and fixed) ENT exam: Present: normal exam, normal oropharynx Neck exam: Present: normal inspection, full ROM Respiratory exam: Present: normal lung sounds bilaterally Cardiovascular Exam: Present: bradycardia, irregular rhythm GI/Abdominal exam: Present: soft, normal bowel sounds Extremities exam: Present: normal inspection, full ROM, normal capillary refill Back exam: Present: normal inspection, full ROM Neurological exam: Present: altered, other (Patient agonal breathing, unresponsive) Psychiatric exam: Present: other (Patient agonal breathing, unresponsive) Skin exam: Present: dry Course Vital Signs 07/07/22 14:55 Temperature 98.7 F Pulse Rate 60 Respiratory 28 H Rate Blood Pressure 102/70 EKG Findings - EKG Comments: EKG Findings:: Initial EKG was obtained on arrival and was interpreted by myself. This EKG showed a rate of 74, MI interval of 172, QR mandaeism 94 and QTC of 421. This EKG had significant artifact however was bradycardic with a wide-complex QRS. The patient then proceeded to code and immediately after this EKG was obtained. Medical Decision Making - Medical Decision Making Was pt. sent in by a medical professional or institution (JELENA Steiner, SALESFORCE ADMINISTRATOR, urgent care, hospital, or residential...) When possible be specific @ -No Did you speak to anyone other than the patient for history (EMS, parent, family, police, friend...)? What history was obtained from this source @ -Patient's granddaughter during the patient code Did you review nursing and triage notes (agree or disagree)? Why? @ -I reviewed and agree with nursing and triage notes Were old charts reviewed (outside hosp., previous admission, EMS record, old EKG, old radiological studies, urgent care reports/EKG's, residential records)? Report findings @ -No old charts were reviewed Differential Diagnosis (chest pain, altered mental status, abdominal pain women, abdominal pain men, vaginal bleeding, weakness, fever, dyspnea, syncope, headache, dizziness, GI bleed, back pain, seizure, CVA, palpatations, mental health)? @ -ACS, PE, hyperkalemia EKG interpreted by me (3pts min.). @ -As above X-rays interpreted by me (1pt min.). @ -None done CT interpreted by me (1pt min.). @ -None done U/S interpreted by me (1pt. min.). @ -None done What testing was considered but not performed or refused? (CT, X-rays, U/S, labs)? Why? @ -Chest x-ray, CT were considered however the patient was actively coding therefore no imaging was obtained and the patient did prior to imaging evaluation. What meds were considered but not given or refused? Why? @ -None Did you discuss the management of the patient with other professionals (professionals i.e. JELENA Steiner, SALESFORCE ADMINISTRATOR, lab, RT, psych nurse, outreach and education social worker, global marketing specialist, teacher, staff air tactical officer, case planner)? Give summary @ -No Was smoking cessation discussed for >3mins.? @ -No Was critical care preformed (if so, how long)? @ -Yes, see above Were there social determinants of health that impacted care today? How? (Homelessness, low income, unemployed, alcoholism, drug addiction, transportation, low edu. Level, literacy, decrease access to med. care, intermediate, rehab)? @ -No Was there de-escalation of care discussed even if they declined (Discuss DNR or withdrawal of care, Hospice)? DNR status @ -No What co-morbidities impacted this encounter? (DM, HTN, Smoking, COPD, CAD, Cancer, CVA, ARF, Chemo, Hep., AIDS, mental health diagnosis, sleep apnea, morbid obesity)? @ -Atrial fibrillation, hypertension, COPD, obesity Was patient admitted / discharged? Hospital course, mention meds given and route, prescriptions, significant lab abnormalities, going to OR and other pertinent info. @ -The patient was seen and evaluated. B the on arrival, the patient was noted to be agonal breathing however did have a pulse. The patient did receive atropine, calcium as well as epinephrine as the patient's EKG was a wide-complex bradycardia. The patient did however go into a pulseless V. tach and was shocked once and then proceeded to go to cardiac arrest. The CPR continued with the patient given 11 epinephrine doses, 2 doses of calcium chloride, 2 doses of bicarb and remained in PE arrest. The patient remained in PA arrest with no cardiac activity noted on ultrasound. The code was called at 1608 after involving the family as well as having ultrasound. Undiagnosed new problem with uncertain prognosis? @ -No Drug Therapy requiring intensive monitoring for toxicity (Heparin, Nitro, Insulin, Cardizem)? @ -No Were any procedures done? @ -No Diagnosis/symptom? @ -Cardiac arrest Acute, or Chronic, or Acute on Chronic? @ -Acute Uncomplicated (without systemic symptoms) or Complicated (systemic symptoms)? @ -Complicated Side effects of treatment? @ -No Exacerbation, Progression, or Severe Exacerbation? @ -No Poses a threat to life or bodily function? How? (Chest pain, [place], HI, pneumonia, PE, COPD, DKA, ARF, appy, cholecystitis, CVA, Diverticulitis, Homicidal, Suicidal, threat to staff... and all critical care pts) @ -Yes - Lab Data Lab Results 07/07/22 Range/Units 15:45 POC Glucose (mg/dL) 101 (70-110) mg/dL POC Glu Supplemental Manager Mitchell Hardwick Critical Care Time Critical Care Time: Yes Total Critical Care Time: 56 Disposition Clinical Impression: Cardiac arrest Disposition: Referrals: Cosme Pena MD [Primary Care Provider] - 1-2 days Time of Disposition: 16:08 Preliminary Cause of : Cardiac arrest
== END 2022-07-07 19:32 | disposition expired ==
LOC: EC 14:54
DX: I46.9 Cardiac arrest, cause unspecified (principal); I10 Essential (primary) hypertension; I48.91 Unspecified atrial fibrillation; J44.9 Chronic obstructive pulmonary disease, unspecified; G47.30 Sleep apnea, unspecified; E66.01 Morbid (severe) obesity due to excess calories; F32.A Depression, unspecified; Z87.891 Personal history of nicotine dependence; Z88.5 Allergy status to narcotic agent; Z79.899 Other long term (current) drug therapy
CPT/HCPCS: 36415; 93005; 99291